=== PATIENT | female | born 1965 | race Caucasian/White ===

== ENCOUNTER 2016-12-01 08:31 | Inpatient (IN) | payer OTHER ==
[~2016-12-01] VITALS: Ht 157.5 cm; Wt 110.5 kg
[~2016-12-01 08:31] MED LIST: BACI500O61 TOP; CALC250 PO; CHOL50006 PO; DOCU100T9 PO; DOXY100 PO; FIORIC PO; FLUC200T63 PO; GABA300 PO; HEPA10KP SQ; LACTG PO; LANTUS2P SC; LORTA5 PO; NEPHRO PO; NOVOLOGP2 SQ; NOVOLOGSS SQ; NYSTT TOPICAL; OXYC1TAB PO; POLY119S PO; RANI150 PO; ROCE1INJ IV; ZINC220 PO
[2016-12-01 08:34] VITALS: BP 178/80; PULSE 96; RESP 16; TEMP 99; O2SAT 95
[2016-12-01 08:39] VITALS: BP 187/89; PULSE 93; RESP 16; TEMP 98.9; O2SAT 98
[2016-12-01] MEDS ORDERED: FURO40TA PO (09:00)
[2016-12-01] MEDS ORDERED: ATOR1TAB18 PO (09:00)
[2016-12-01] MEDS ORDERED: METO5TAB PO (09:00)
[2016-12-01] MEDS ORDERED: BRIL90TA PO (09:00)
[2016-12-01] MEDS ORDERED: CARV3.12 PO (09:00)
[2016-12-01] MEDS ORDERED: ASPI81TA11 PO (09:00)
[2016-12-01] MEDS ORDERED: LORA-373 PO (09:00)
[2016-12-01] MEDS ORDERED: ONDA1TAB16 PO (09:00)
[2016-12-01] MEDS ORDERED: INSU1INJ5 SQ (09:02)
[2016-12-01] MEDS ORDERED: NOVOINJ3 SQ (09:03)
[2016-12-01] MEDS ORDERED: SODIUM CHLOR 0.9% 1000 ML INJ 1,000 ML IV SCH (09:08)
[2016-12-01 09:13] VITALS: O2SAT 98
[2016-12-01] MEDS ORDERED: SODIUM CHLORIDE 0.9% FLUSH 10 ML FLUSH IV FLUSH PRN (09:15)
[2016-12-01 10:26] LABS: BLOOD, URINE SMALL (NEG); GLUCOSE,URINE NEG (NEG); KETONE, URINE NEG (NEG); NITRITE,URINE NEG (NEG); PH, URINE 5.5 (5.0-8.5); SQUAMOUS EPITHELIAL CELL URINE 2 /hpf (0-5); URINE COLOR LIGHT-YELLOW (YELLW/STRAW)
--- NOTE | 2016-12-01 10:27 | RADRPT ---
EXAM DATE/TIME: 12/01/2016 09:43 [place] COMPARISON: No previous studies available for comparison. INDICATIONS : Left lower quadrant pain for one day. ORAL CONTRAST: No oral contrast ingested. RADIATION DOSE: 16.94 CTDIvol (mGy) MEDICAL HISTORY : Diabetes mellitus type 2. Hepatitis A. SURGICAL HISTORY : Hysterectomy. ENCOUNTER: Initial ACUITY: 1 day PAIN SCALE: 7/10 LOCATION: Left lower quadrant TECHNIQUE: Volumetric scanning of the abdomen and pelvis was performed. Using automated exposure control and ad justment of the mA and/or kV according to patient size, radiation dose was kept as low as reasonably achievable to obtain optimal diagnostic quality images. DICOM format image data is available electro nically for review and comparison. FINDINGS: LOWER LUNGS: Minimal left basal atelectasis. LIVER: Homogeneous density without lesion. There is no dilation of the biliary tree. Gallbladder is surgica lly absent. SPLEEN: Normal size without lesion. PANCREAS: Within normal limits. KIDNEYS: There is a nearly striated left nephrogram with contrast noted in the left collecting system and uret er extending to near the UVJ. The left renal collecting system and ureter are mildly prominent in com parison to the right. A definite radiopaque ureteral calculus is not visualized although a small calc ulus would be obscured by the dense contrast in the ureters. There is mild perinephric stranding on t he left. Right kidney is grossly unremarkable without evidence for radiopaque renal calculi or hydron ephrosis. ADRENAL GLANDS: Within normal limits. VASCULAR: There is no aortic aneurysm. BOWEL/MESENTERY: The stomach, small bowel, and colon demonstrate no acute abnormality. There is no free intraperitone al air or fluid. ABDOMINAL WALL: Within normal limits. RETROPERITONEUM: There is no lymphadenopathy. BLADDER: Mild distended and contains contrast. No definite radiopaque bladder calculi. REPRODUCTIVE: Within normal limits. INGUINAL: There is no lymphadenopathy or hernia. MUSCULOSKELETAL: Within normal limits for patient age. CONCLUSION: 1. Striated left nephrogram from recent prior contrast administration with associated mild left hydro ureteronephrosis extending to the UVJ. A definite radiopaque ureteral calculus is not visualized alth ough a very small calculus can be obscured by the dense contrast in the left ureter. Findings are mos t consistent with at least a partial left UVJ obstruction although differential consideration include s left sided pyelonephritis. Clinical correlation is recommended. Pierce Avendano MD on December 01, 2016 at 10:00 Board Certified Radiologist. This report was verified electronically.
[2016-12-01 10:28] LABS: COMMENT (UR) CULT NOT INDICATED; CULTURE IF INDICATED CULT NOT INDICATED
[2016-12-01 10:42] LABS: AUTOMATED NEUTROPHIL # 10.5 TH/MM3 (1.8-7.7); BASOPHIL # 0.1 TH/MM3 (0-0.2); BASOPHIL % 0.7 % (0.0-2.0); EOSINOPHIL # 0.1 TH/MM3 (0-0.4); EOSINOPHIL % 0.4 % (0.0-4.0); HEMATOCRIT 39.9 % (35.0-46.0); HEMO FLAGS DIFF FINAL; LYMPH % 12.1 % (9.0-44.0); LYMPHOCYTE # 1.6 TH/MM3 (1.0-4.8); MEAN CELL VOLUME 87.1 FL (80.0-100.0); MEAN CORPUSCULAR HEMOGLOBIN 28.4 PG (27.0-34.0); MEAN CORPUSCULAR HGB CONC 32.6 % (32.0-36.0); NEUT % 81.8 % (16.0-70.0); PLATELET COUNT 276 TH/MM3 (150-450); RED BLOOD COUNT 4.58 MIL/MM3 (4.00-5.30); RED CELL DISTRIBUTION WIDTH 15.5 % (11.6-17.2); WHITE BLOOD COUNT 12.9 TH/MM3 (4.0-11.0)
[2016-12-01 11:07] LABS: ALKALINE PHOSPHATASE 142 U/L (45-117); TOTAL BILIRUBIN ADULT 0.4 MG/DL (0.2-1.0)
[2016-12-01 11:08] LABS: ALT (GPT) 33 U/L (10-53); ANION GAP 8 MEQ/L (5-15); AST (GOT) 29 U/L (15-37); BICARBONATE 25.3 MEQ/L (21.0-32.0); BLOOD UREA NITROGEN 27 MG/DL (7-18); CHLORIDE 105 MEQ/L (98-107); GLOMERULAR FILTRATION RATE 31 ML/MIN (>89); POTASSIUM 4.8 MEQ/L (3.5-5.1); SODIUM (NA) 138 MEQ/L (136-145)
--- NOTE | 2016-12-01 11:36 | PD ---
HPI Chief Complaint: Abdominal Pain Time Seen by Provider: 08:51 Travel History International Travel<30 days: No Contact w/Intl Traveler<30days: No Traveled to known affect area: No History of Present Illness HPI 51-year-old female came to the emergency room with history of left abdominal pain. Patient said it started spontaneously early yesterday morning. It has been severe since then. Patient went to [facility] where she had a CAT scan with contrast and was told that they could not find anything abnormal. Patient was discharged home but she is back here now because the pain continues. She has been having significant vomiting and dry heaving at this point. The pain starts from the left lumbar area and goes down to the left lower quadrant. Patient says she has never had this kind of pain before. She does not have any history of kidney stones. Vital signs were relatively stable. No history of fever or chills. No history of dysuria or hematuria. PFSH Past Medical History Narrative Medical List of her past medical, surgical, social and family history is reviewed from the nursing note. Arthritis: No Asthma: No Anxiety: Yes ( VERY SICK) Depression: No Heart Rhythm Problems: No Cancer: No Cardiovascular Problems: No High Cholesterol: No Chemotherapy: No Chest Pain: No Congestive Heart Failure: No COPD: No Cerebrovascular Accident: No Diabetes: Yes Patient Takes Glucophage: No Endocrine: Yes GERD: No Glaucoma: No Genitourinary: No Headaches: Yes Hepatitis: Yes (HEPATITIS A) Hiatal Hernia: No Hypertension: No Immune Disorder: No Kidney Stones: No Musculoskeletal: No Neurologic: Yes (LOWER EXTREMITY NEUROPATHY) Psychiatric: No Reproductive: Yes (HYST ) Respiratory: No Migraines: Yes Radiation Therapy: No Renal Failure: No Seizures: No Sickle Cell Disease: No Sleep Apnea: No Thyroid Disease: No Ulcer: No ?: Not : 1 Para: 1 Dilation and Curettage (D&C): Yes Past Surgical History Abdominal Surgery: No AICD: No Arteriovenous Shunt: No Cardiac Surgery: No Section: Yes Ear Surgery: No Endocrine Surgery: No Eye Surgery: No Genitourinary Surgery: No Gynecologic Surgery: Yes (TOTAL HYST) Hysterectomy: Yes (09/27/2009) Joint Replacement: No Oral Surgery: No Thoracic Surgery: No Other Surgery: Yes (LEFT FOOT AMPUTATION ) Social History Alcohol Use: No Tobacco Use: No Substance Use: No Allergies-Medications (Allergen,Severity, Reaction): Coded Allergies: cefaclor (Unverified Allergy, Severe, HIVES, 12/01/16) erythromycin base (Unverified Allergy, Severe, HIVES, 12/01/16) levofloxacin (Unverified Allergy, Severe, HIVES, 12/01/16) penicillin G (Unverified Allergy, Severe, HIVES, 12/01/16) amoxicillin (Verified Allergy, Unknown, 12/01/16) promethazine (Verified Allergy, Unknown, 12/01/16) Comments List of her allergies reviewed from the nursing note. Reported Meds & Prescriptions Reported Meds & Active Scripts Active Reported Novolog Flexpen Inj (Insulin Aspart) 300 Unit/3 Ml Pen 1 Units SQ Levemir Flextouch Pen Inj (Insulin Detemir) 300 unit/3 ML Pen 60 Units SQ HS Ondansetron (Ondansetron HCl) 4 Mg Tab 4 Mg PO Carvedilol 3.125 Mg Tab 3.125 Mg PO BID Furosemide 40 Mg Tab 40 Mg PO DAILY Atorvastatin (Atorvastatin Calcium) 80 Mg Tab 80 Mg PO HS Aspirin EC (Aspirin) 81 Mg Tabdr 81 Mg PO DAILY Metoclopramide (Metoclopramide HCl) 5 Mg Tab 5 Mg PO DAILY Lorazepam 0.5 Mg Tab 0.5 Mg PO DAILY PRN Brilinta (Ticagrelor) 90 Mg Tab 90 Mg PO BID Narrative Medication List of her home medications reviewed from the nursing note. Review of Systems Except as stated in HPI: all other systems reviewed are Neg Physical Exam Narrative GENERAL: Awake, alert, morbidly obese, moderate distress SKIN: Focused skin assessment warm/dry. HEAD: Atraumatic. Normocephalic. EYES: Pupils equal and round. No scleral icterus. No injection or drainage. ENT: No nasal bleeding or discharge. Mucous membranes pink and moist. NECK: Trachea midline. No JVD. CARDIOVASCULAR: Regular rate and rhythm. No murmur appreciated. RESPIRATORY: No accessory muscle use. Clear to auscultation. Breath sounds equal bilaterally. GASTROINTESTINAL: Abdomen soft, non-tender, nondistended. Hepatic and splenic margins not palpable. MUSCULOSKELETAL: No obvious deformities. No clubbing. No cyanosis. No edema. NEUROLOGICAL: Awake and alert. No obvious cranial nerve deficits. Motor grossly within normal limits. Normal speech. PSYCHIATRIC: Appropriate mood and affect; insight and judgment normal. Data Data Last Documented VS Vital Signs Date Time Temp Pulse Resp B/P (MAP) Pulse Ox O2 Delivery O2 Flow Rate FiO2 12/01/16 09:13 98 Room Air 12/01/16 08:39 98.9 93 16 Orders Orders Complete Blood Count With Diff (12/01/16 09:08) Comprehensive Metabolic Panel (12/01/16 09:08) Lipase (12/01/16 09:08) Urinalysis - C+S If Indicated (12/01/16 09:08) Ct Abd/Pel W/O Iv Contrast (12/01/16 09:08) Iv Access Insert/Monitor (12/01/16 09:08) Ecg Monitoring (12/01/16 09:08) Oximetry (12/01/16 09:08) Sodium Chlor 0.9% 1000 Ml Inj (Ns 1000 M (12/01/16 09:08) Sodium Chloride 0.9% Flush (Ns Flush) (12/01/16 09:15) Morphine Inj (Morphine Inj) (12/01/16 11:45) Sodium Chlor 0.9% 1000 Ml Inj (Ns 1000 M (12/01/16 11:45) Ondansetron Inj (Zofran Inj) (12/01/16 11:45) Admit Order (Ed Use Only) (12/01/16 11:52) Labs Laboratory Tests Test 12/01/16 10:10 12/01/16 10:30 Urine Color LIGHT-YELLOW Urine Turbidity CLEAR Urine pH 5.5 Urine Specific [place] 1.016 Urine Protein TRACE mg/dL Urine Glucose (UA) NEG mg/dL Urine Ketones NEG mg/dL Urine Occult Blood SMALL Urine Nitrite NEG Urine Bilirubin NEG Urine Urobilinogen LESS THAN 2.0 MG/DL Urine Leukocyte Esterase NEG Urine RBC 2 /hpf Urine WBC 5 /hpf Urine Squamous Epithelial Cells 2 /hpf Microscopic Urinalysis Comment CULT NOT INDICATED White Blood Count 12.9 TH/MM3 Red Blood Count 4.58 MIL/MM3 Hemoglobin 13.0 GM/DL Hematocrit 39.9 % Mean Corpuscular Volume 87.1 FL Mean Corpuscular Hemoglobin 28.4 PG Mean Corpuscular Hemoglobin Concent 32.6 % Red Cell Distribution Width 15.5 % Platelet Count 276 TH/MM3 Mean Platelet Volume 7.4 FL Neutrophils (%) (Auto) 81.8 % Lymphocytes (%) (Auto) 12.1 % Monocytes (%) (Auto) 5.0 % Eosinophils (%) (Auto) 0.4 % Basophils (%) (Auto) 0.7 % Neutrophils # (Auto) 10.5 TH/MM3 Lymphocytes # (Auto) 1.6 TH/MM3 Monocytes # (Auto) 0.6 TH/MM3 Eosinophils # (Auto) 0.1 TH/MM3 Basophils # (Auto) 0.1 TH/MM3 CBC Comment DIFF FINAL Differential Comment Blood Urea Nitrogen 27 MG/DL Creatinine 1.73 MG/DL Random Glucose 116 MG/DL Total Protein 7.4 GM/DL Albumin 3.0 GM/DL Calcium Level 9.1 MG/DL Alkaline Phosphatase 142 U/L Aspartate Amino Transf (AST/SGOT) 29 U/L Alanine Aminotransferase (ALT/SGPT) 33 U/L Total Bilirubin 0.4 MG/DL Sodium Level 138 MEQ/L Potassium Level 4.8 MEQ/L Chloride Level 105 MEQ/L Carbon Dioxide Level 25.3 MEQ/L Anion Gap 8 MEQ/L Estimat Glomerular Filtration Rate 31 ML/MIN Lipase 173 U/L [facility] Medical Decision Making Medical Screen Exam Complete: Yes Emergency Medical Condition: Yes Medical Record Reviewed: Yes Differential Diagnosis Ureteral colic, acute diverticulitis, muscular skeletal pain Narrative Course 11:39 AM patient has contrast still in the left collecting system of her urinary tract. Blood test is also suggestive of renal insufficiency/ dehydration and the white blood cell count is slightly elevated. Patient was given 1 L of IV fluid bolus and I ordered a second liter. She is getting morphine. Based on the obstructive pattern and her pain my diagnosis is ureteral colic secondary to ureteral calculi. I discussed the case with Dr. Briseno regarding the patient. He will consult. Patient will require admission. Awaiting for the hospitalist call back. Procedures EKG Prior to Arrival: No Physician Communication Physician Communication Dr. Briseno Diagnosis Primary Impression: Ureteral colic Additional Impressions: Ureteral obstruction Hydroureter Admitting Information Admitting Physician Requests: Admit Nilda Henry MD Dec 01, 2016 11:36
[2016-12-01] MEDS ORDERED: ONDANSETRON HCL 4 MG/2 ML VIAL IV PUSH ONE (11:45)
[2016-12-01] MEDS ORDERED: MORPHINE SULFATE 8 MG/ML INJ IV PUSH ONE (11:45)
[2016-12-01] MEDS ORDERED: SODIUM CHLOR 0.9% 1000 ML INJ 1,000 ML IV ONE (11:45)
[2016-12-01] MEDS ORDERED: DEXTROSE 50% IN WATER 50 ML VIAL(D50) IV PUSH PRN (12:30)
[2016-12-01] MEDS ORDERED: GLUCAGON 1 MG/ML VIAL OTHER PRN (12:30)
--- NOTE | 2016-12-01 12:34 | HHI.HP ---
[facility] No Primary Care Physician Admission Diagnosis ureteral colic, flank pain, intractable pain Diagnoses: (1) Ureteral obstruction Diagnosis: Principal Chief Complaint: left flank pain Travel History International Travel<30 Days: No Contact w/Intl Traveler <30 Da: No Traveled to Known Affected Are: No History of Present Illness patient is a 51 y/o female with history of CAD, hypertension, diabetes, who presented to ER with left flank pain. she says that the pain started yesterday. pain was severe in intensity with no radiation. pain was associated with nausea but with no fever, dysuria or gross hematuria. she says that she went to [facility], had a CT of the abdomen with contrast and was discharged home with Keflex for possible UTI. she says that her pain got worse to the extent that she decided to come back to ER. Review of Systems Constitutional: DENIES: Fever, Weight loss, Chills, Night Sweats Eyes: DENIES: Blurred vision, Diplopia, Vision loss, Double Vision Ears, nose, mouth, throat: DENIES: Tinnitus, Vertigo, Throat pain, Epistaxis Respiratory: DENIES: Apneas, Cough, Snoring, Wheezing, Hemoptysis, Sputum production, Shortness of breath Cardiovascular: DENIES: Chest pain, Palpitations, Syncope, Dyspnea on Exertion , PND, Lower Extremity Edema, Orthopnea, Claudication Gastrointestinal: COMPLAINS OF: Abdominal pain, Nausea, DENIES: Black stools, Bloody stools, Constipation, Diarrhea, Vomiting, Difficulty Swallowing, Anorexia Genitourinary: DENIES: Urinary frequency, Urgency, Hematuria, Dysuria Musculoskeletal: DENIES: Joint pain, Muscle aches, Stiffness, Joint Swelling Integumentary: DENIES: Rash Neurologic: DENIES: Abnormal gait, Headache, Localized weakness, Paresthesias, Seizures, Speech Problems, Tremor, Poor Balance Psychiatric: DENIES: Anxiety, Confusion, Mood changes, Depression, Hallucinations, Agitation, Suicidal Ideation, Homicidal Ideation, Delusions Past Family Social History Past Medical History CAD hypertension diabetes mellitus Past Surgical History cardiac stent placement appendectomy cholecystectomy hysterectomy left BKA Reported Medications Novolog Flexpen Inj (Insulin Aspart) 300 Unit/3 Ml Pen 1 Units SQ Levemir Flextouch Pen Inj (Insulin Detemir) 300 unit/3 ML Pen 60 Units SQ HS Ondansetron (Ondansetron HCl) 4 Mg Tab 4 Mg PO Carvedilol 3.125 Mg Tab 3.125 Mg PO BID Furosemide 40 Mg Tab 40 Mg PO DAILY Atorvastatin (Atorvastatin Calcium) 80 Mg Tab 80 Mg PO HS Aspirin EC (Aspirin) 81 Mg Tabdr 81 Mg PO DAILY Metoclopramide (Metoclopramide HCl) 5 Mg Tab 5 Mg PO DAILY Lorazepam 0.5 Mg Tab 0.5 Mg PO DAILY PRN Brilinta (Ticagrelor) 90 Mg Tab 90 Mg PO BID Allergies: Coded Allergies: cefaclor (Unverified Allergy, Severe, HIVES, 12/01/16) erythromycin base (Unverified Allergy, Severe, HIVES, 12/01/16) levofloxacin (Unverified Allergy, Severe, HIVES, 12/01/16) penicillin G (Unverified Allergy, Severe, HIVES, 12/01/16) amoxicillin (Verified Allergy, Unknown, 12/01/16) promethazine (Verified Allergy, Unknown, 12/01/16) Active Ordered Medications Current Medications Sodium Chloride 1,000 ml @ 1,000 mls/hr Q1H IV Last administered on 12/01/16 09:18; Start 12/01/16 at 09:08; Stop 12/01/16 at 10:07; Status DC Sodium Chloride (NS Flush) 2 ml UNSCH PRN IV FLUSH FLUSH AFTER USING IV ACCESS ; Start 12/01/16 at 09:15 Morphine Sulfate (Morphine Inj) 6 mg ONCE ONCE IV PUSH Last administered on 11:49; Start 12/01/16 at 11:45; Stop 12/01/16 at 11:46; Status DC Sodium Chloride 1,000 ml @ 999 mls/hr BOLUS ONCE IV Last administered on 12/01 11:49; Start 12/01/16 at 11:45; Stop 12/01/16 at 12:45 Ondansetron HCl (Zofran Inj) 4 mg ONCE ONCE IV PUSH Last administered on 11:50; Start 12/01/16 at 11:45; Stop 12/01/16 at 11:46; Status DC Family History not relevant to this presentation. Social History no smoking or drinking. Physical Exam Vital Signs Vital Signs Date Time Temp Pulse Resp B/P (MAP) Pulse Ox O2 Delivery O2 Flow Rate FiO2 12/01/16 09:13 98 Room Air 12/01/16 08:39 98.9 93 16 187/89 (121) 98 Room Air 12/01/16 08:34 99.0 96 16 178/80 (112) 95 Physical Exam GENERAL: This is a well-nourished, well-developed patient, in no apparent distress. SKIN: No rashes, ecchymoses or lesions. Cool and dry. HEAD: Atraumatic. Normocephalic. No temporal or scalp tenderness. EYES: Pupils equal round and reactive. Extraocular motions intact. No scleral icterus. No injection or drainage. ENT: Nose without bleeding, purulent drainage or septal hematoma. Throat without erythema, tonsillar hypertrophy or exudate. Uvula midline. Airway patent. NECK: Trachea midline. No JVD or lymphadenopathy. Supple, nontender, no meningeal signs. CARDIOVASCULAR: Regular rate and rhythm without murmurs, gallops, or rubs. RESPIRATORY: Clear to auscultation. Breath sounds equal bilaterally. No wheezes , rales, or rhonchi. GASTROINTESTINAL: Abdomen soft, left flank tenderness, nondistended. No hepato- splenomegaly, or palpable masses. No guarding. MUSCULOSKELETAL:s/p left BKA NEUROLOGICAL: Awake and alert. Cranial nerves II through XII intact. Motor and sensory grossly within normal limits. Five out of 5 muscle strength in all muscle groups. Normal speech. Laboratory Laboratory Tests Test 12/01/16 10:10 12/01/16 10:30 Urine Color LIGHT-YELLOW Urine Turbidity CLEAR Urine pH 5.5 Urine Specific [place] 1.016 Urine Protein TRACE Urine Glucose (UA) NEG Urine Ketones NEG Urine Occult Blood SMALL Urine Nitrite NEG Urine Bilirubin NEG Urine Urobilinogen LESS THAN 2.0 Urine Leukocyte Esterase NEG Urine RBC 2 Urine WBC 5 Urine Squamous Epithelial Cells 2 Microscopic Urinalysis Comment CULT NOT INDICATED White Blood Count 12.9 Red Blood Count 4.58 Hemoglobin 13.0 Hematocrit 39.9 Mean Corpuscular Volume 87.1 Mean Corpuscular Hemoglobin 28.4 Mean Corpuscular Hemoglobin Concent 32.6 Red Cell Distribution Width 15.5 Platelet Count 276 Mean Platelet Volume 7.4 Neutrophils (%) (Auto) 81.8 Lymphocytes (%) (Auto) 12.1 Monocytes (%) (Auto) 5.0 Eosinophils (%) (Auto) 0.4 Basophils (%) (Auto) 0.7 Neutrophils # (Auto) 10.5 Lymphocytes # (Auto) 1.6 Monocytes # (Auto) 0.6 Eosinophils # (Auto) 0.1 Basophils # (Auto) 0.1 CBC Comment DIFF FINAL Differential Comment Blood Urea Nitrogen 27 Creatinine 1.73 Random Glucose 116 Total Protein 7.4 Albumin 3.0 Calcium Level 9.1 Alkaline Phosphatase 142 Aspartate Amino Transf (AST/SGOT) 29 Alanine Aminotransferase (ALT/SGPT) 33 Total Bilirubin 0.4 Sodium Level 138 Potassium Level 4.8 Chloride Level 105 Carbon Dioxide Level 25.3 Anion Gap 8 Estimat Glomerular Filtration Rate 31 Lipase 173 Result Diagram: 12/01/16 1030 12/01/16 1030 Imaging Last Impressions Abdomen/Pelvis CT 12/01/16 0908 Signed Impressions: Service Date/Time: Thursday, December 01, 2016 09:43 - CONCLUSION: 1. Striated left nephrogram from recent prior contrast administration with associated mild left hydroureteronephrosis extending to the UVJ. A definite radiopaque ureteral calculus is not visualized although a very small calculus can be obscured by the dense contrast in the left ureter. Findings are most consistent with at least a partial left UVJ obstruction although differential consideration includes left sided pyelonephritis. Clinical correlation is recommended. MD Tiesha Delgado VTE Risk Assessment Caprini VTE Risk Assessment: Mod/High Risk (score >= 2) VTE Pharm Contraindication: awaiting urology evaluation. Caprini Risk Assessment Model Point Value = 1 Point Value = 2 Point Value = 3 Point Value = 5 Age 41-60 Minor surgery BMI > 25 kg/m2 Swollen legs Varicose veins or History of unexplained or recurrent spontaneous Oral contraceptives or hormone replacement Sepsis (< 1 month) Serious lung disease, including pneumonia (< 1 month) Abnormal pulmonary function Acute myocardial infarction Congestive heart failure (< 1 month) History of inflammatory bowel disease Medical patient at bed rest Age 61-74 Arthroscopic surgery Major open surgery (> 45 min) Laparoscopic surgery (> 45 min) Malignancy Confined to bed (> 72 hours) Immobilizing plaster cast Central venous access Age >= 75 History of VTE Family history of VTE Factor V Leiden Prothrombin [id number] Lupus anticoagulant Anticardiolipin antibodies Elevated serum homocysteine Heparin-induced thrombocytopenia Other congenital or acquired thrombophilia Stroke (< 1 month) Elective arthroplasty Hip, pelvis, or leg fracture Acute spinal cord injury (< 1 month) Prophylaxis Regimen Total Risk Factor Score Risk Level Prophylaxis Regimen 0-1 Low Early ambulation 2 Moderate Order ONE of the following: *Sequential Compression Device (SCD) *Heparin 5000 units SQ BID 3-4 Higher Order ONE of the following medications: *Heparin 5000 units SQ TID *Enoxaparin/Lovenox 40 mg SQ daily (WT < 150 kg, CrCl > 30 mL/min) *Enoxaparin/Lovenox 30 mg SQ daily (WT < 150 kg, CrCl > 10-29 mL/min) *Enoxaparin/Lovenox 30 mg SQ BID (WT < 150 kg, CrCl > 30 mL/min) AND/OR *Sequential Compression Device (SCD) 5 or more Highest Order ONE of the following medications: *Heparin 5000 units SQ TID (Preferred with Epidurals) *Enoxaparin/Lovenox 40 mg SQ daily (WT < 150 kg, CrCl > 30 mL/min) *Enoxaparin/Lovenox 30 mg SQ daily (WT < 150 kg, CrCl > 10-29 mL/min) *Enoxaparin/Lovenox 30 mg SQ BID (WT < 150 kg, CrCl > 30 mL/min) AND *Sequential Compression Device (SCD) Assessment and Plan Assessment and Plan A/P - left hydronephrosis keep NPO and start IV fluid- pain control- consult Urology -acute kidney injury- likely post-renal- continue IV fluid- BMP in am. -CAD- s/p stent placement- hold antiplatelets for now- resume BB -diabetes mellitus;hold long acting insulin- accu-check with SSI -DVT prophylaxis with SCD's Discussed Condition With ER physician and the patient. Physician Certification 2 Midnight Certification Type: Admission for Inpatient Services Order for Inpatient Services The services are ordered in accordance with Medicare regulations or non- Medicare payer requirements, as applicable. In the case of services not specified as inpatient-only, they are appropriately provided as inpatient services in accordance with the 2-midnight benchmark. Estimated LOS (days): 2 days is the estimated time the patient will need to remain in the hospital, assuming treatment plan goals are met and no additional complications. Post-Hospital Plan: Home Physician Certification 2 Midnight Certification Type: Admission for Inpatient Services Order for Inpatient Services The services are ordered in accordance with Medicare regulations or non- Medicare payer requirements, as applicable. In the case of services not specified as inpatient-only, they are appropriately provided as inpatient services in accordance with the 2-midnight benchmark. Estimated LOS (days): 2 days is the estimated time the patient will need to remain in the hospital, assuming treatment plan goals are met and no additional complications. Post-Hospital Plan: Home Aviva Russ MD Dec 01, 2016 12:34
[2016-12-01 13:22] VITALS: BP 120/70; PULSE 92; RESP 15; O2SAT 99
[2016-12-01] MEDS: SODIUM CHLOR 0.9% 1000 ML INJ 1,000 ML IV SCH ×2 (13:24→23:15)
[2016-12-01] MEDS: ONDANSETRON HCL 4 MG/2 ML VIAL IV PUSH PRN (15:45)
[2016-12-01] MEDS: HYDROmorphone HCL PF 1 MG/ML VIAL IV PUSH PRN ×2 (15:45→19:04)
[2016-12-01 16:00] VITALS: BP 149/70; PULSE 87; RESP 20; TEMP 98.7; O2SAT 96
[2016-12-01] MEDS: INSULIN ASPART SUPPLEMENTAL SCALE SQ SCH ×2 (17:00→21:00)
[2016-12-01 20:00] VITALS: BP 127/63; PULSE 91; RESP 22; TEMP 98.7; O2SAT 94
--- NOTE | 2016-12-01 20:12 | PD.CONS ---
HPI Service Urology Consult Requested By Reason for Consult Left Hydronephrosis Primary Care Physician No Primary Care Physician Diagnosis: (1) Ureteral obstruction ICD Code: N13.5 - Crossing vessel and stricture of ureter without hydronephrosis History of Present Illness 51yo female with history of CAD, HTN, DM now seen in consultation for left flank pain. Patient reports she had left flank pain that was quite severe yesterday morning. She initially presented to [facility] where CT scan with contrast did not identify any evidence of obstruction. Her pain persisted however and she now presented to [place] ED. A repeat CT scan was done which showed contrast noted within the left collecting system, however no evidence of ureteral stone or obvious obstruction. She currently reports her pain is controlled, denies fevers. No hematuria Review of Systems ROS Limitations: Clinical Condition Constitutional: DENIES: Fever Eyes: DENIES: Blurred vision Ears, nose, mouth, throat: DENIES: Hearing loss Respiratory: DENIES: Apneas, Cough Cardiovascular: DENIES: Chest pain Gastrointestinal: COMPLAINS OF: Nausea, DENIES: Abdominal pain Genitourinary: DENIES: Hematuria Musculoskeletal: COMPLAINS OF: Back pain Hematologic/lymphatic: DENIES: Bruising Neurologic: DENIES: Headache Psychiatric: DENIES: Anxiety Except as stated in HPI: all other systems reviewed are Neg Past Family Social History Past Medical History CAD hypertension diabetes mellitus Past Surgical History cardiac stent placement appendectomy cholecystectomy hysterectomy left BKA Reported Medications Reported Meds & Active Scripts Active Reported Novolog Flexpen Inj (Insulin Aspart) 300 Unit/3 Ml Pen 1 Units SQ Levemir Flextouch Pen Inj (Insulin Detemir) 300 unit/3 ML Pen 60 Units SQ HS Ondansetron (Ondansetron HCl) 4 Mg Tab 4 Mg PO Carvedilol 3.125 Mg Tab 3.125 Mg PO BID Furosemide 40 Mg Tab 40 Mg PO DAILY Atorvastatin (Atorvastatin Calcium) 80 Mg Tab 80 Mg PO HS Aspirin EC (Aspirin) 81 Mg Tabdr 81 Mg PO DAILY Metoclopramide (Metoclopramide HCl) 5 Mg Tab 5 Mg PO DAILY Lorazepam 0.5 Mg Tab 0.5 Mg PO DAILY PRN Brilinta (Ticagrelor) 90 Mg Tab 90 Mg PO BID Allergies: Coded Allergies: cefaclor (Unverified Allergy, Severe, HIVES, 12/01/16) erythromycin base (Unverified Allergy, Severe, HIVES, 12/01/16) levofloxacin (Unverified Allergy, Severe, HIVES, 12/01/16) penicillin G (Unverified Allergy, Severe, HIVES, 12/01/16) amoxicillin (Verified Allergy, Unknown, 12/01/16) promethazine (Verified Allergy, Unknown, 12/01/16) Active Ordered Medications Current Medications Medications (Trade) Dose Ordered Sig/Kadeem Route Start Time Stop Time Status Last Admin (NS Flush) 2 ml UNSCH PRN IV FLUSH 12/01/16 09:15 (Zofran Inj) 4 mg Q8H PRN IV PUSH 12/01/16 12:30 12/01/16 15:45 (Dilaudid Pf Inj) 1 mg Q4H PRN IV PUSH 12/01/16 12:30 12/01/16 19:04 (D50w (Vial) Inj) 50 ml UNSCH PRN IV PUSH 12/01/16 12:30 (Glucagon Inj) 1 mg UNSCH PRN OTHER 12/01/16 12:30 (NovoLOG SUPPLEMENTAL SCALE) 1 ACHS SLIDING SCALE SQ 12/01/16 17:00 Sodium Chloride 1,000 ml @ 100 mls/hr Q10H IV 12/01/16 13:00 12/01/16 13:24 (Lipitor) 80 mg HS PO 12/01/16 21:00 (Coreg) 3.125 mg BID PO 12/01/16 21:00 (Ativan) 0.5 mg DAILY PRN PO 12/01/16 12:30 Family History Family history reviewed and noncontributory to present illness Social History no smoking or drinking. Physical Exam Vital Signs Date Time Temp Pulse Resp B/P (MAP) Pulse Ox O2 Delivery O2 Flow Rate FiO2 12/01/16 16:00 98.7 87 20 149/70 (96) 96 12/01/16 15:36 12/01/16 13:22 92 15 120/70 (87) 99 Room Air 12/01/16 09:13 98 Room Air 12/01/16 08:39 98.9 93 16 187/89 (121) 98 Room Air 12/01/16 08:34 99.0 96 16 178/80 (112) 95 Physical Exam GENERAL: This is a well-nourished, well-developed patient, in no apparent distress. SKIN: No rashes, ecchymoses or lesions. Cool and dry. HEAD: Atraumatic. Normocephalic.. EYES: Extraocular motions intact. No scleral icterus. No injection or drainage. ENT: Nose without bleeding, purulent drainage. Airway patent. NECK: Trachea midline. CARDIOVASCULAR: Extremities well perfused, normal pulse. RESPIRATORY: Nonlabored, equal chest rise GASTROINTESTINAL: Abdomen soft, non-tender, nondistended. MUSCULOSKELETAL: Extremities without clubbing, cyanosis, or edema. NEUROLOGICAL: Awake and alert. Left BKA. Normal speech. Lab results reviewed: Yes Laboratory Tests Test 12/01/16 10:10 12/01/16 10:30 Urine Color LIGHT-YELLOW Urine Turbidity CLEAR Urine pH 5.5 Urine Specific [place] 1.016 Urine Protein TRACE Urine Glucose (UA) NEG Urine Ketones NEG Urine Occult Blood SMALL Urine Nitrite NEG Urine Bilirubin NEG Urine Urobilinogen LESS THAN 2.0 Urine Leukocyte Esterase NEG Urine RBC 2 Urine WBC 5 Urine Squamous Epithelial Cells 2 Microscopic Urinalysis Comment CULT NOT INDICATED White Blood Count 12.9 Red Blood Count 4.58 Hemoglobin 13.0 Hematocrit 39.9 Mean Corpuscular Volume 87.1 Mean Corpuscular Hemoglobin 28.4 Mean Corpuscular Hemoglobin Concent 32.6 Red Cell Distribution Width 15.5 Platelet Count 276 Mean Platelet Volume 7.4 Neutrophils (%) (Auto) 81.8 Lymphocytes (%) (Auto) 12.1 Monocytes (%) (Auto) 5.0 Eosinophils (%) (Auto) 0.4 Basophils (%) (Auto) 0.7 Neutrophils # (Auto) 10.5 Lymphocytes # (Auto) 1.6 Monocytes # (Auto) 0.6 Eosinophils # (Auto) 0.1 Basophils # (Auto) 0.1 CBC Comment DIFF FINAL Differential Comment Blood Urea Nitrogen 27 Creatinine 1.73 Random Glucose 116 Total Protein 7.4 Albumin 3.0 Calcium Level 9.1 Alkaline Phosphatase 142 Aspartate Amino Transf (AST/SGOT) 29 Alanine Aminotransferase (ALT/SGPT) 33 Total Bilirubin 0.4 Sodium Level 138 Potassium Level 4.8 Chloride Level 105 Carbon Dioxide Level 25.3 Anion Gap 8 Estimat Glomerular Filtration Rate 31 Lipase 173 Result Diagram: 12/01/16 1030 12/01/16 1030 Personally reviewed images: Yes Imaging Last Impressions Abdomen/Pelvis CT 12/01/16 0908 Signed Impressions: Service Date/Time: Thursday, December 01, 2016 09:43 - CONCLUSION: 1. Striated left nephrogram from recent prior contrast administration with associated mild left hydroureteronephrosis extending to the UVJ. A definite radiopaque ureteral calculus is not visualized although a very small calculus can be obscured by the dense contrast in the left ureter. Findings are most consistent with at least a partial left UVJ obstruction although differential consideration includes left sided pyelonephritis. Clinical correlation is recommended. Pierce Avendano MD Assessment and Plan Problem List: (1) Diabetes mellitus ICD Code: E11.9 - Diabetes mellitus Status: Chronic (2) Ureteral colic ICD Code: N23 - Unspecified renal colic Status: Acute (3) Ureteral obstruction ICD Code: N13.5 - Crossing vessel and stricture of ureter without hydronephrosis Status: Acute Assessment and Plan -CT images reviewed. Retained contrast of the left colecting system, to the Left UVJ noted. However no obvious stone or obstruction identified -Patient without history of kidney stones -Currently patient is comfortable, no fevers -At this time, no acute intervention indicated as there is no obvious cause for the CT scan findings, and patient is currently comfortable without any signs of sepsis -If patient has a left ureteral stone at the UVJ, it is likely very small given the CT scan appearance and may have a good chance to pass spontaneously. Other causes may be a left UVJ stricture. -If her symptoms do not improve, would recommend left nephrostomy tube placement. Ureteral stent would not be recommended as it is unclear if there is a UVJ stricture that may prevent placement of a left ureteral stent. Nephrostomy tube would be the most definitive method to drain the left collecting system. -Patient may resume diet for now. -Will follow Bobo Briseno MD Dec 01, 2016 20:12
[2016-12-01] MEDS: CARVEDILOL 3.125 MG TAB PO SCH (21:01)
[2016-12-01] MEDS: ATORVASTATIN 80 MG TAB PO SCH (21:01)
[2016-12-02] VITALS: BP 133/68; PULSE 96; RESP 20; TEMP 99.1; O2SAT 95
[2016-12-02 04:00] VITALS: BP 111/56; PULSE 92; RESP 19; TEMP 99.3; O2SAT 95
[2016-12-02 07:50] LABS: BICARBONATE 23.7 MEQ/L (21.0-32.0); POTASSIUM 4.4 MEQ/L (3.5-5.1)
[2016-12-02 08:00] VITALS: BP 110/56; PULSE 86; RESP 20; TEMP 98; O2SAT 92
[2016-12-02] MEDS: INSULIN ASPART SUPPLEMENTAL SCALE SQ SCH ×4 (08:00→21:41)
[2016-12-02] MEDS: CARVEDILOL 3.125 MG TAB PO SCH ×2 (08:18→21:41)
[2016-12-02] MEDS: SODIUM CHLOR 0.9% 1000 ML INJ 1,000 ML IV SCH ×2 (08:18→18:16)
--- NOTE | 2016-12-02 10:20 | HHI.PR ---
Subjective Remarks is more comfortable. abdominal pain is better. no fever. no new complaints. Objective Vitals Vital Signs Date Time Temp Pulse Resp B/P (MAP) Pulse Ox O2 Delivery O2 Flow Rate FiO2 12/02/16 07:00 Room Air 12/02/16 04:00 Room Air 12/02/16 04:00 99.3 92 19 111/56 (74) 95 12/02/16 00:00 Room Air 12/02/16 00:00 99.1 96 20 133/68 (89) 95 12/01/16 20:00 98.7 91 22 127/63 (84) 94 12/01/16 16:00 98.7 87 20 149/70 (96) 96 12/01/16 15:36 12/01/16 13:22 92 15 120/70 (87) 99 Room Air I/O 12/01/16 12/01/16 12/01/16 12/02/16 12/02/16 12/02/16 06:59 14:59 22:59 06:59 14:59 22:59 Intake Total 2000 ml 800 ml 736 ml Output Total 700 ml Balance 2000 ml 800 ml 36 ml Intake Oral 480 ml IV Total 2000 ml 800 ml 256 ml Output Urine Total 700 ml # Bowel Movements 0 Result Diagram: 12/01/16 1030 12/02/16 0527 Imaging Last Impressions Abdomen/Pelvis CT 12/01/16 0908 Signed Impressions: Service Date/Time: Thursday, December 01, 2016 09:43 - CONCLUSION: 1. Striated left nephrogram from recent prior contrast administration with associated mild left hydroureteronephrosis extending to the UVJ. A definite radiopaque ureteral calculus is not visualized although a very small calculus can be obscured by the dense contrast in the left ureter. Findings are most consistent with at least a partial left UVJ obstruction although differential consideration includes left sided pyelonephritis. Clinical correlation is recommended. Pierce Avendano MD Objective Remarks GENERAL: This is a well-nourished, well-developed patient, in no apparent distress. CARDIOVASCULAR: Regular rate and regular rhythm without murmurs, gallops, or rubs. RESPIRATORY: Clear to auscultation. Breath sounds equal bilaterally. No wheezes , rales, or rhonchi. GASTROINTESTINAL: Abdomen soft, non-tender, nondistended. Normal, active bowel sounds MUSCULOSKELETAL: Extremities without clubbing, cyanosis, or edema. NEURO: Alert & Oriented x4 to person, place, time, situation. Moves all ext x4 Medications and IVs Current Medications Sodium Chloride 1,000 ml @ 1,000 mls/hr Q1H IV Last administered on 12/01/16 09:18; Start 12/01/16 at 09:08; Stop 12/01/16 at 10:07; Status DC Sodium Chloride (NS Flush) 2 ml UNSCH PRN IV FLUSH FLUSH AFTER USING IV ACCESS ; Start 12/01/16 at 09:15 Morphine Sulfate (Morphine Inj) 6 mg ONCE ONCE IV PUSH Last administered on 11:49; Start 12/01/16 at 11:45; Stop 12/01/16 at 11:46; Status DC Sodium Chloride 1,000 ml @ 999 mls/hr BOLUS ONCE IV Last administered on 12/01 11:49; Start 12/01/16 at 11:45; Stop 12/01/16 at 12:45; Status DC Ondansetron HCl (Zofran Inj) 4 mg ONCE ONCE IV PUSH Last administered on 11:50; Start 12/01/16 at 11:45; Stop 12/01/16 at 11:46; Status DC Ondansetron HCl (Zofran Inj) 4 mg Q8H PRN IV PUSH NAUSEA Last administered on 12/01/16 15:45; Start 12/01/16 at 12:30 Hydromorphone HCl (Dilaudid Pf Inj) 1 mg Q4H PRN IV PUSH PAIN > 3 Last administered on 12/01/16 19:04; Start 12/01/16 at 12:30 Dextrose (D50w (Vial) Inj) 50 ml UNSCH PRN IV PUSH HYPOGLYCEMIA-SEE COMMENTS; Start 12/01/16 at 12:30 Glucagon (Glucagon Inj) 1 mg UNSCH PRN OTHER HYPOGLYCEMIA-SEE COMMENTS; Start 12/01/16 at 12:30 Insulin Aspart (NovoLOG SUPPLEMENTAL SCALE) 1 ACHS SLIDING SCALE SQ ; Start at 17:00 Sodium Chloride 1,000 ml @ 100 mls/hr Q10H IV Last administered on 12/02/16 08:18; Start 12/01/16 at 13:00 Atorvastatin Calcium (Lipitor) 80 mg HS PO Last administered on 12/01/16 21:01 ; Start 12/01/16 at 21:00 Carvedilol (Coreg) 3.125 mg BID PO Last administered on 12/02/16 08:18; Start 12/01/16 at 21:00 Lorazepam (Ativan) 0.5 mg DAILY PRN PO ANXIETY; Start 12/01/16 at 12:30 A/P Problem List: (1) Ureteral obstruction ICD Code: N13.5 - Crossing vessel and stricture of ureter without hydronephrosis Status: Acute Assessment and Plan A/P - left hydronephrosis urology consult appreciated- no surgical intervention at this time. continue with pain control- -acute kidney injury- likely post-renal- improving- continue IV fluid- BMP in am. -CAD- s/p stent placement- resume antiplatelets soon- resume BB -diabetes mellitus;hold long acting insulin- accu-check with SSI -DVT prophylaxis with SCD's Discharge Planning possible dc home tomorrow if stable. Aviva Russ MD Dec 02, 2016 10:20
[2016-12-02 12:00] VITALS: BP 118/56; PULSE 85; RESP 20; TEMP 98.2; O2SAT 92
[2016-12-02] MEDS ORDERED: HYDROmorphone HCL PF 1 MG/ML VIAL IV PUSH PRN (12:30)
[2016-12-02 16:00] VITALS: BP 110/56; PULSE 85; RESP 18; TEMP 99.1; O2SAT 90
[2016-12-02] MEDS: ONDANSETRON HCL 4 MG/2 ML VIAL IV PUSH PRN (17:47)
[2016-12-02] MEDS: ACETAMINOPHEN/HYDROcodone 325 MG/5 MG TAB PO PRN (18:16)
[2016-12-02 20:00] VITALS: BP 130/85; PULSE 84; RESP 20; TEMP 97.9; O2SAT 95
--- NOTE | 2016-12-02 20:22 | HHI.PR ---
Subjective Patient symptoms today Pain improved, however persistent N/V. Objective Vital Signs Vital Signs Date Time Temp Pulse Resp B/P (MAP) Pulse Ox O2 Delivery O2 Flow Rate FiO2 12/02/16 16:00 99.1 85 18 110/56 (74) 90 12/02/16 12:00 98.2 85 20 118/56 (76) 92 12/02/16 08:00 98.0 86 20 110/56 (74) 92 12/02/16 07:00 Room Air 12/02/16 04:00 Room Air 12/02/16 04:00 99.3 92 19 111/56 (74) 95 12/02/16 00:00 Room Air 12/02/16 00:00 99.1 96 20 133/68 (89) 95 Result Diagram: 12/01/16 1030 12/02/16 05 Objective Remarks NAD, AAOx3 Resp NL Ab Soft Medications and IVs Current Medications Medications (Trade) Dose Ordered Sig/Kadeem Route Start Time Stop Time Status Last Admin (NS Flush) 2 ml UNSCH PRN IV FLUSH 12/01/16 09:15 (Zofran Inj) 4 mg Q8H PRN IV PUSH 12/01/16 12:30 12/02/16 17:47 (D50w (Vial) Inj) 50 ml UNSCH PRN IV PUSH 12/01/16 12:30 (Glucagon Inj) 1 mg UNSCH PRN OTHER 12/01/16 12:30 (NovoLOG SUPPLEMENTAL SCALE) 1 ACHS SLIDING SCALE SQ 12/01/16 17:00 Sodium Chloride 1,000 ml @ 100 mls/hr Q10H IV 12/01/16 13:00 12/02/16 18:16 (Lipitor) 80 mg HS PO 12/01/16 21:00 12/01/16 21:01 (Coreg) 3.125 mg BID PO 12/01/16 21:00 12/02/16 08:18 (Ativan) 0.5 mg DAILY PRN PO 12/01/16 12:30 (Dilaudid Pf Inj) 0.5 mg Q4H PRN IV PUSH 12/02/16 12:30 ([place] 5-325 Mg) 1 tab Q4H PRN PO 12/02/16 10:30 12/02/16 18:16 Assessment and Plan Problem List: (1) Diabetes mellitus ICD Code: E11.9 - Diabetes mellitus Status: Chronic (2) Ureteral colic ICD Code: N23 - Unspecified renal colic Status: Acute (3) Ureteral obstruction ICD Code: N13.5 - Crossing vessel and stricture of ureter without hydronephrosis Status: Acute Assessment and Plan -As she has had some improvement with improved Cr as well, no immediate intervention -However her pain is better but persistent N/V. -Therefore will further evaluate with Renal scan to clarify any evidence of obstruction -If there is evidence of obstruction, would recommend left nephrostomy tube placement with IR -Will follow Bobo Briseno MD Dec 02, 2016 20:22
[2016-12-02] MEDS: ATORVASTATIN 80 MG TAB PO SCH (21:41)
[2016-12-03] VITALS: BP 98/56; PULSE 78; RESP 20; TEMP 98.1; O2SAT 92
[2016-12-03 04:00] VITALS: BP_SYST 105; PULSE 78; RESP 20; TEMP 98; O2SAT 92
[2016-12-03] MEDS: SODIUM CHLOR 0.9% 1000 ML INJ 1,000 ML IV SCH ×2 (04:27→14:18)
[2016-12-03 08:00] VITALS: BP 107/76; PULSE 78; RESP 18; TEMP 98.1; O2SAT 92
[2016-12-03] MEDS: INSULIN ASPART SUPPLEMENTAL SCALE SQ SCH ×4 (08:00→21:55)
[2016-12-03] MEDS: CARVEDILOL 3.125 MG TAB PO SCH ×2 (08:08→21:55)
[2016-12-03] MEDS: ACETAMINOPHEN/HYDROcodone 325 MG/5 MG TAB PO PRN ×2 (08:09→14:16)
[2016-12-03] MEDS: ONDANSETRON HCL 4 MG/2 ML VIAL IV PUSH PRN ×2 (08:10→19:31)
--- NOTE | 2016-12-03 08:17 | HHI.PR ---
Subjective Remarks in no acute distress. however is uncomfortable with left flank pain and nausea. had some emesis last night. no fever. Objective Vitals Vital Signs Date Time Temp Pulse Resp B/P (MAP) Pulse Ox O2 Delivery O2 Flow Rate FiO2 12/03/16 08:00 98.1 78 18 107/76 (86) 92 12/03/16 04:00 98.0 78 20 105/ 92 12/03/16 00:00 98.1 78 20 98/56 (70) 92 12/02/16 21:44 Room Air 12/02/16 20:00 97.9 84 20 130/85 (100) 95 12/02/16 16:00 99.1 85 18 110/56 (74) 90 12/02/16 12:00 98.2 85 20 118/56 (76) 92 I/O 12/02/16 12/02/16 12/02/16 12/03/16 12/03/16 12/03/16 07:00 15:00 23:00 07:00 15:00 23:00 Intake Total 736 ml 2000 ml 1660 ml Output Total 700 ml Balance 36 ml 2000 ml 1660 ml Intake Oral 480 ml 720 ml 480 ml IV Total 256 ml 1280 ml 1180 ml Output Urine Total 700 ml # Voids 3 3 # Bowel Movements 0 0 Result Diagram: 12/01/16 1030 12/02/16 0527 Imaging Last Impressions Abdomen/Pelvis CT 12/01/16 0908 Signed Impressions: Service Date/Time: Thursday, December 01, 2016 09:43 - CONCLUSION: 1. Striated left nephrogram from recent prior contrast administration with associated mild left hydroureteronephrosis extending to the UVJ. A definite radiopaque ureteral calculus is not visualized although a very small calculus can be obscured by the dense contrast in the left ureter. Findings are most consistent with at least a partial left UVJ obstruction although differential consideration includes left sided pyelonephritis. Clinical correlation is recommended. Pierce Avendano MD Objective Remarks GENERAL: This is a well-nourished, well-developed patient, in no apparent distress. CARDIOVASCULAR: Regular rate and regular rhythm without murmurs, gallops, or rubs. RESPIRATORY: Clear to auscultation. Breath sounds equal bilaterally. No wheezes , rales, or rhonchi. GASTROINTESTINAL: Abdomen soft, non-tender, nondistended. Normal, active bowel sounds MUSCULOSKELETAL: Extremities without clubbing, cyanosis, or edema. NEURO: Alert & Oriented x4 to person, place, time, situation. Moves all ext x4 Medications and IVs Current Medications Sodium Chloride 1,000 ml @ 1,000 mls/hr Q1H IV Last administered on 12/01/16 09:18; Start 12/01/16 at 09:08; Stop 12/01/16 at 10:07; Status DC Sodium Chloride (NS Flush) 2 ml UNSCH PRN IV FLUSH FLUSH AFTER USING IV ACCESS ; Start 12/01/16 at 09:15 Morphine Sulfate (Morphine Inj) 6 mg ONCE ONCE IV PUSH Last administered on 11:49; Start 12/01/16 at 11:45; Stop 12/01/16 at 11:46; Status DC Sodium Chloride 1,000 ml @ 999 mls/hr BOLUS ONCE IV Last administered on 12/01 11:49; Start 12/01/16 at 11:45; Stop 12/01/16 at 12:45; Status DC Ondansetron HCl (Zofran Inj) 4 mg ONCE ONCE IV PUSH Last administered on 11:50; Start 12/01/16 at 11:45; Stop 12/01/16 at 11:46; Status DC Ondansetron HCl (Zofran Inj) 4 mg Q8H PRN IV PUSH NAUSEA Last administered on 12/02/16 17:47; Start 12/01/16 at 12:30 Hydromorphone HCl (Dilaudid Pf Inj) 1 mg Q4H PRN IV PUSH PAIN > 3 Last administered on 12/01/16 19:04; Start 12/01/16 at 12:30; Stop 12/02/16 at 10:23 ; Status DC Dextrose (D50w (Vial) Inj) 50 ml UNSCH PRN IV PUSH HYPOGLYCEMIA-SEE COMMENTS; Start 12/01/16 at 12:30 Glucagon (Glucagon Inj) 1 mg UNSCH PRN OTHER HYPOGLYCEMIA-SEE COMMENTS; Start 12/01/16 at 12:30 Insulin Aspart (NovoLOG SUPPLEMENTAL SCALE) 1 ACHS SLIDING SCALE SQ Last administered on 12/02/16 21:41; Start 12/01/16 at 17:00 Sodium Chloride 1,000 ml @ 100 mls/hr Q10H IV Last administered on 12/03/16 04:27; Start 12/01/16 at 13:00 Atorvastatin Calcium (Lipitor) 80 mg HS PO Last administered on 12/02/16 21:41 ; Start 12/01/16 at 21:00 Carvedilol (Coreg) 3.125 mg BID PO Last administered on 12/02/16 21:41; Start 12/01/16 at 21:00 Lorazepam (Ativan) 0.5 mg DAILY PRN PO ANXIETY; Start 12/01/16 at 12:30 Hydromorphone HCl (Dilaudid Pf Inj) 0.5 mg Q4H PRN IV PUSH BREAKTHROUGH PAIN; Start 12/02/16 at 12:30 Acetaminophen/ Hydrocodone Bitart ([place] 5-325 Mg) 1 tab Q4H PRN PO PAIN >3 Last administered on 12/02/16 18:16; Start 12/02/16 at 10:30 A/P Problem List: (1) Ureteral obstruction ICD Code: N13.5 - Crossing vessel and stricture of ureter without hydronephrosis Status: Acute Assessment and Plan A/P - left hydronephrosis urology follow-up appreciated- no surgical intervention at this time.for renogram today. continue with pain control- -acute kidney injury- likely post-renal- improving- continue IV fluid- BMP today ; pending. -CAD- s/p stent placement- resume antiplatelets soon - awaiting renogram and urology f/u- resume BB -diabetes mellitus;hold long acting insulin- accu-check with SSI -DVT prophylaxis with SCD's Discharge Planning dc home when pain is better and cleared by urology. Aviva Russ MD Dec 03, 2016 08:17
[2016-12-03 10:13] LABS: BICARBONATE 21.7 MEQ/L (21.0-32.0); POTASSIUM 4.7 MEQ/L (3.5-5.1)
[2016-12-03 12:00] VITALS: BP 112/69; PULSE 80; RESP 18; TEMP 98.4; O2SAT 90
[2016-12-03 16:00] VITALS: BP 119/76; PULSE 79; RESP 18; TEMP 98.5; O2SAT 90
[2016-12-03] MEDS: ACETAMIN 325 MG/BUTALBITAL 50 MG/CAFFEINE 40 MG TAB PO PRN (19:26)
[2016-12-03 20:00] VITALS: BP 148/71; PULSE 79; RESP 20; TEMP 98.4; O2SAT 92
[2016-12-03] MEDS: ATORVASTATIN 80 MG TAB PO SCH (21:55)
[2016-12-04] VITALS (7 sets, daily range): BP systolic 98–184; BP diastolic 50–88; PULSE 78–90; RESP 16–20; TEMP 98.3–99; O2SAT 86–100
[2016-12-04] MEDS: SODIUM CHLOR 0.9% 1000 ML INJ 1,000 ML IV SCH ×2 (00:19→11:00)
[2016-12-04] MEDS: INSULIN ASPART SUPPLEMENTAL SCALE SQ SCH ×4 (08:00→22:08)
[2016-12-04] MEDS: CARVEDILOL 3.125 MG TAB PO SCH ×2 (08:27→22:07)
[2016-12-04] MEDS: ONDANSETRON HCL 4 MG/2 ML VIAL IV PUSH PRN (08:27)
--- NOTE | 2016-12-04 08:36 | HHI.PR ---
Subjective Remarks in no acute distress. no fever. still with nausea and left flank pain. awaiting renogram. Objective Vitals Vital Signs Date Time Temp Pulse Resp B/P (MAP) Pulse Ox O2 Delivery O2 Flow Rate FiO2 12/04/16 04:00 98.6 82 18 140/66 (90) 91 12/04/16 00:00 98.3 79 18 98/50 (66) 92 12/03/16 20:00 98.4 79 20 148/71 (96) 92 12/03/16 19:39 Room Air 12/03/16 16:00 98.5 79 18 119/76 (90) 90 12/03/16 12:00 98.4 80 18 112/69 (83) 90 I/O 12/03/16 12/03/16 12/03/16 12/04/16 12/04/16 12/04/16 07:00 15:00 23:00 07:00 15:00 23:00 Intake Total 1660 ml 980 ml 892 ml 994 ml Output Total 600 ml Balance 1660 ml 980 ml 292 ml 994 ml Intake Oral 480 ml 720 ml 360 ml IV Total 1180 ml 980 ml 172 ml 634 ml Output Urine Total 600 ml # Voids 3 0 # Bowel Movements 2 Result Diagram: 12/01/16 1030 12/03/16 0850 Imaging Last Impressions Abdomen/Pelvis CT 12/01/16 0908 Signed Impressions: Service Date/Time: Thursday, December 01, 2016 09:43 - CONCLUSION: 1. Striated left nephrogram from recent prior contrast administration with associated mild left hydroureteronephrosis extending to the UVJ. A definite radiopaque ureteral calculus is not visualized although a very small calculus can be obscured by the dense contrast in the left ureter. Findings are most consistent with at least a partial left UVJ obstruction although differential consideration includes left sided pyelonephritis. Clinical correlation is recommended. Pierce Avendano MD Objective Remarks GENERAL: This is a well-nourished, well-developed patient, in no apparent distress. CARDIOVASCULAR: Regular rate and regular rhythm without murmurs, gallops, or rubs. RESPIRATORY: Clear to auscultation. Breath sounds equal bilaterally. No wheezes , rales, or rhonchi. GASTROINTESTINAL: Abdomen soft, some left flank tenderness, nondistended. Normal, active bowel sounds MUSCULOSKELETAL: Extremities without clubbing, cyanosis, or edema. NEURO: Alert & Oriented x4 to person, place, time, situation. Moves all ext x4 Medications and IVs Current Medications Sodium Chloride 1,000 ml @ 1,000 mls/hr Q1H IV Last administered on 12/01/16 09:18; Start 12/01/16 at 09:08; Stop 12/01/16 at 10:07; Status DC Sodium Chloride (NS Flush) 2 ml UNSCH PRN IV FLUSH FLUSH AFTER USING IV ACCESS ; Start 12/01/16 at 09:15 Morphine Sulfate (Morphine Inj) 6 mg ONCE ONCE IV PUSH Last administered on 11:49; Start 12/01/16 at 11:45; Stop 12/01/16 at 11:46; Status DC Sodium Chloride 1,000 ml @ 999 mls/hr BOLUS ONCE IV Last administered on 12/01 11:49; Start 12/01/16 at 11:45; Stop 12/01/16 at 12:45; Status DC Ondansetron HCl (Zofran Inj) 4 mg ONCE ONCE IV PUSH Last administered on 11:50; Start 12/01/16 at 11:45; Stop 12/01/16 at 11:46; Status DC Ondansetron HCl (Zofran Inj) 4 mg Q8H PRN IV PUSH NAUSEA Last administered on 12/04/16 08:27; Start 12/01/16 at 12:30 Hydromorphone HCl (Dilaudid Pf Inj) 1 mg Q4H PRN IV PUSH PAIN > 3 Last administered on 12/01/16 19:04; Start 12/01/16 at 12:30; Stop 12/02/16 at 10:23 ; Status DC Dextrose (D50w (Vial) Inj) 50 ml UNSCH PRN IV PUSH HYPOGLYCEMIA-SEE COMMENTS; Start 12/01/16 at 12:30 Glucagon (Glucagon Inj) 1 mg UNSCH PRN OTHER HYPOGLYCEMIA-SEE COMMENTS; Start 12/01/16 at 12:30 Insulin Aspart (NovoLOG SUPPLEMENTAL SCALE) 1 ACHS SLIDING SCALE SQ Last administered on 12/03/16 21:55; Start 12/01/16 at 17:00 Sodium Chloride 1,000 ml @ 100 mls/hr Q10H IV Last administered on 12/04/16 00:19; Start 12/01/16 at 13:00 Atorvastatin Calcium (Lipitor) 80 mg HS PO Last administered on 12/03/16 21:55 ; Start 12/01/16 at 21:00 Carvedilol (Coreg) 3.125 mg BID PO Last administered on 12/04/16 08:27; Start 12/01/16 at 21:00 Lorazepam (Ativan) 0.5 mg DAILY PRN PO ANXIETY; Start 12/01/16 at 12:30 Hydromorphone HCl (Dilaudid Pf Inj) 0.5 mg Q4H PRN IV PUSH BREAKTHROUGH PAIN Last administered on 12/04/16 08:28; Start 12/02/16 at 12:30 Acetaminophen/ Hydrocodone Bitart ([place] 5-325 Mg) 1 tab Q4H PRN PO PAIN >3 Last administered on 12/03/16 14:16; Start 12/02/16 at 10:30; Status Future Hold Acetaminophen/ Butalbital/ Caffeine (Fioricet 325-50-40) 1 tab Q6H PRN PO MIRGRAINE Last administered on 12/03/16 19:26; Start 12/03/16 at 19:00 Oxycodone/ Acetaminophen (Percoc[place] 5-325 Mg) 1 tab Q4H PRN PO Pain > 3; Start 12/03/16 at 20:30 A/P Problem List: (1) Ureteral obstruction ICD Code: N13.5 - Crossing vessel and stricture of ureter without hydronephrosis Status: Acute Assessment and Plan A/P - left hydronephrosis urology follow-up appreciated- no surgical intervention at this time.awaiting renogram and urology follow-up. continue with pain control and antiemetics as needed. -acute kidney injury- likely post-renal- improving- continue IV fluid- -CAD- s/p stent placement- resume antiplatelets soon - awaiting renogram and urology f/u- resumed BB -diabetes mellitus;hold long acting insulin- accu-check with SSI -DVT prophylaxis with SCD's Discharge Planning dc home-possible tomorrow when pain/nausea is better and cleared by urology. Aviva Russ MD Dec 04, 2016 08:36
[2016-12-04] MEDS ORDERED: PROMETHAZINE INJ 25 MG/ML VIAL IM PRN (08:45)
[2016-12-04] MEDS ORDERED: FUROSEMIDE 40 MG/4 ML VIAL ONE (09:12)
--- NOTE | 2016-12-04 09:47 | RADRPT ---
EXAM DATE/TIME: 12/04/2016 08:59 [facility] COMPARISON: No previous studies available for comparison. INDICATIONS : Left hydronephrosis and ureteral obstruction. DOSE: 21 mCi Tc99m DTPA IV MEDICATION: 40 mg Lasix IV MEDICAL HISTORY : Hypertension. Diabetes mellitus type 2. Coronary artery disease. SURGICAL HISTORY : Coronary artery stent. Appendectomy. Cholecystectomy. Left BKA. ENCOUNTER: Initial ACUITY: 2 days PAIN SCALE: 5/10 LOCATION: Left flank TECHNIQUE: Dynamic images were performed in the posterior projection for a total of 28 minutes. FINDINGS: FLOW: There is symmetric arrival of bolus to both kidneys. There is homogeneous perfusion to both kidneys. EXCRETION: There is minimal delayed transit on the left that washes out promptly with Lasix, Washout half-time i s 16.8 on the left 16 point one on the right. CONCLUSION: There is no evidence for obstruction. John Iverson MD FACR on December 04, 2016 at 9:42 Board Certified Radiologist. This report was verified electronically.
[2016-12-04] MEDS: oxyCODONE/ACETAMINOPHEN 5 MG/325 MG TAB PO PRN ×2 (12:08→18:56)
--- NOTE | 2016-12-04 13:34 | HHI.PR ---
Subjective Patient symptoms today No evidence of obstruction on renal scan. Patient appears to have persistent left flank pain, however clinically is comfortable -No immediate surgical intervention indicated at this time -Patient may need further evaluation, however this may be done as outpatient as her renal function as steadily improved -Patient is clear for discharge from Urology standpoint with [facility] follow-up. -Please call with questions Objective Vital Signs Vital Signs Date Time Temp Pulse Resp B/P (MAP) Pulse Ox O2 Delivery O2 Flow Rate FiO2 12/04/16 12:00 98.4 78 20 110/55 (73) 86 12/04/16 09:00 92 Room Air 12/04/16 08:00 99.0 90 20 184/88 (120) 89 12/04/16 04:00 98.6 82 18 140/66 (90) 91 12/04/16 00:00 98.3 79 18 98/50 (66) 92 12/03/16 20:00 98.4 79 20 148/71 (96) 92 12/03/16 19:39 Room Air 12/03/16 16:00 98.5 79 18 119/76 (90) 90 Intake & Output 12/04/16 12/04/16 07:00 19:00 Intake Total 1166 ml Balance 1166 ml Intake Oral 360 ml IV Total 806 ml # Voids 0 1 Result Diagram: 12/01/16 1030 12/03/16 0850 Imaging Last 24 hours Impressions Renal Scan w/Medication NM 12/04/16 0000 Signed Impressions: Service Date/Time: Sunday, December 04, 2016 08:59 - CONCLUSION: There is no evidence for obstruction. John Iverson MD FACR Medications and IVs Current Medications Medications (Trade) Dose Ordered Sig/Kadeem Route Start Time Stop Time Status Last Admin (NS Flush) 2 ml UNSCH PRN IV FLUSH 12/01/16 09:15 (Zofran Inj) 4 mg Q8H PRN IV PUSH 12/01/16 12:30 12/04/16 08:27 (D50w (Vial) Inj) 50 ml UNSCH PRN IV PUSH 12/01/16 12:30 (Glucagon Inj) 1 mg UNSCH PRN OTHER 12/01/16 12:30 (NovoLOG SUPPLEMENTAL SCALE) 1 ACHS SLIDING SCALE SQ 12/01/16 17:00 12/04/16 12:00 Sodium Chloride 1,000 ml @ 100 mls/hr Q10H IV 12/01/16 13:00 12/04/16 00:19 (Lipitor) 80 mg HS PO 12/01/16 21:00 12/03/16 21:55 (Coreg) 3.125 mg BID PO 12/01/16 21:00 12/04/16 08:27 (Ativan) 0.5 mg DAILY PRN PO 12/01/16 12:30 (Dilaudid Pf Inj) 0.5 mg Q4H PRN IV PUSH 12/02/16 12:30 12/04/16 08:28 (Schuyler 5-325 Mg) 1 tab Q4H PRN PO 12/02/16 10:30 Future Hold 12/03/16 14:16 (Fioricet 325-50-40) 1 tab Q6H PRN PO 12/03/16 19:00 12/03/16 19:26 (Percocet 5-325 Mg) 1 tab Q4H PRN PO 12/03/16 20:30 12/04/16 12:08 (Phenergan Inj) 25 mg Q8HR PRN IM 12/04/16 08:45 Assessment and Plan Problem List: (1) Diabetes mellitus ICD Code: E11.9 - Diabetes mellitus Status: Chronic (2) Ureteral colic ICD Code: N23 - Unspecified renal colic Status: Acute (3) Ureteral obstruction ICD Code: N13.5 - Crossing vessel and stricture of ureter without hydronephrosis Status: Acute Bobo Briseno MD Dec 04, 2016 13:34
[2016-12-04] MEDS: ACETAMIN 325 MG/BUTALBITAL 50 MG/CAFFEINE 40 MG TAB PO PRN (17:07)
[2016-12-04] MEDS: ASPIRIN EC 81 MG TABEC PO SCH (19:44)
[2016-12-04] MEDS ORDERED: TICAGRELOR 90 MG TAB PO SCH (21:00)
[2016-12-04] MEDS: ATORVASTATIN 80 MG TAB PO SCH (22:06)
[2016-12-04] MEDS ORDERED: MIDAZOLAM HCL 5 MG/ML VIAL (1 ML) ONE (23:41)
[2016-12-04] MEDS ORDERED: PROPOFOL 500 MG/50 ML INJ 50 ML ONE (23:43)
[2016-12-05] VITALS (18 sets, daily range): BP systolic 105–170; BP diastolic 57–83; PULSE 58–89; RESP 14–23; TEMP 98.3–99.8; O2SAT 99–100
[2016-12-05] MEDS ORDERED: MIDAZOLAM HCL 5 MG/ML VIAL (1 ML) IV ONE
--- NOTE | 2016-12-05 00:44 | RADRPT ---
EXAM DATE/TIME: 12/05/2016 00:09 [facility] COMPARISON: CHEST SINGLE AP, October 03, 2009, 11:07. INDICATIONS : ET tube and central line placement. MEDICAL HISTORY : Hypertension. Diabetes mellitus type 2. Coronary artery disease. SURGICAL HISTORY : Coronary artery stent. Appendectomy. Cholecystectomy. ENCOUNTER: Initial ACUITY: 1 day PAIN SCORE: Non-responsive. LOCATION: Bilateral chest FINDINGS: Endotracheal tube is present with tip 2-3 cm above the sasha. Right central line descends into the S VC. The lungs are symmetrically aerated and grossly clear. Cardiac contours are satisfactory for tech nique and projection. CONCLUSION: Satisfactory line and tube positioning. No pneumothorax Freddy Montez MD on December 05, 2016 at 0:42 Board Certified Radiologist. This report was verified electronically.
[2016-12-05] MEDS ORDERED: LACTATED RINGER'S 1000 ML INJ 1,000 ML IV ONE (01:00)
--- NOTE | 2016-12-05 01:06 | PD.PROCEDR ---
Procedure Note Procedure PROCEDURE NOTE PROCEDURE: Endotracheal intubation INDICATION: Acute respiratory failure, cardiac arrest DETAILS OF PROCEDURE: The patient was bagged with 100% FiO2 via [id number]. Procedure was done during CPR without sedation. Direct laryngoscopy was performed with a 2 Rosas laryngoscope blade and a grade II Cormack-Lehane view was obtained. On single attempt a size 8 endotracheal tube was visualized passing through the cords. Correct placement was confirmed with colorimetric CO2 detector. Breath sounds were equal bilaterally. No sounds auscultated over the stomach. The endotracheal tube was secured with a commercial tube umanzor at a depth of 22 cm at the lips. CXR demonstrated satisfactory endotracheal tube position without apparent complication. Allie Perez MD Dec 05, 2016 01:06
--- NOTE | 2016-12-05 01:06 | PD.PROCEDR ---
Central Line Procedure DATE: 12/05/16 CENTRAL LINE PLACEMENT: Right internal jugular vein. Ultrasound-guided INDICATION: Central venous access CONSENT Procedure was done emergently as patient was in extremis status post code with no IV access and in need of central venous line placement. DESCRIPTION OF THE PROCEDURE The patient was placed in supine position, Trendelenburg. The skin was cleansed with Chloraprep. Additional barrier precautions included large sterile drape, sterile gloves, sterile gown, face mask, and hat. 1 % lidocaine was used for local anesthesia. Under direct ultrasound guidance and on single attempt, the vein was accessed with an introducer needle. The guide wire was advanced and the tract was dilated. Using Seldinger technique a 7 Maori 20 cm antimicrobial coated triple-lumen catheter was advanced to a depth of 18 centimeters. The guide wire was removed. All ports had good return of dark venous blood and flushed easily with saline. The central line was secured with 2.0 silk. A sterile dressing with antibiotic disc was applied. ESTIMATED BLOOD LOSS: Minimal COMPLICATIONS: No apparent complications. STAT chest x-ray demonstrated satisfactory central venous line position without apparent competition. ESTIMATED BLOOD LOSS: Less than 1 cc. Allie Perez MD Dec 05, 2016 01:06
--- NOTE | 2016-12-05 01:06 | PD.PROCEDR ---
Procedure Note Procedure Date: 12/04/16 Procedure: Cardiopulmonary resucitation Indication: Asystolic cardiac arrest Details of procedure: Responded to code blue call overhead. Patient had reportedly gone to the bathroom and then complained of sudden onset SOB and asked for assistance with sitting up and then became unresponsive with no pulse. Asystole on monitor and CPR was initiated per ACLS protocol. There was no existing IV access and nurses were attempting IV access unsuccessfully. I began to proceed with CVL access however unfortunately the central line was knocked on the floor while patient was turned to position the backboard. Proceeded with intubation to provide route for epi administration and to secure airway. Meanwhile, patient achieved ROSC after 6 minutes of CPR. No ACLS meds were administered. Allie Perez MD Dec 05, 2016 01:06
--- NOTE | 2016-12-05 01:31 | PD.CONS ---
[facility] Service Critical Care Medicine Consult Requested By Dr. Russ Reason for Consult Code Blue Primary Care Physician Dr. Cuba in [facility] History of Present Illness Date of admission 12/01/16 Date of consultation 12/05/16 51-year-old female with past medical history of coronary artery disease with stents, hypertension, diabetes, morbid obesity, PAD status post left BKA, CKD who originally arrived at [facility] emergency department on 12/01/16 with a one-day history of left lower quadrant pain. She had previously had a CT abdomen and pelvis with IV contrast at [facility] that was reportedly negative. On the CT abdomen and pelvis that was obtained at [place] had residual contrast in the left ureter. There was mild left hydrouretero-hydronephrosis. No ureteral stone was visible. Urology has evaluated and felt that this may represent a small ureteral stone which would likely pass spontaneously versus a UVJ stricture. Renogram was negative for obstruction on 12/04 and she was cleared for d/c by urology. Creatinine on admission was 1.73 and had down trended to 1.36. She was afebrile and urinalysis was negative for evidence of infection. [facility] responded to CODE BLUE. RN states that patient had gotten up with the tech to go to the bathroom and when she returned to the bed she began complaining of sudden onset of shortness of breath. She reportedly did not mention chest pain. She then became unresponsive and was in asystolic cardiac arrest and CPR was initiated. She had no IV access as multiple nurses had attempted to place a peripheral IV access prior to the arrest. She was intubated and had ROSC after 6 minutes. Glucose was greater than 200. She did not receive any ACLS meds due to lack of IV access despite ongoing attempts by nursing to place PIV. She obtained ROSC before intubation. She is in sinus rhythm in the 70s and hypertensive. CVL was placed. Review of Systems ROS Limitations: Intubated Past Family Social History Allergies: Coded Allergies: cefaclor (Unverified Allergy, Severe, HIVES, 12/01/16) erythromycin base (Unverified Allergy, Severe, HIVES, 12/01/16) levofloxacin (Unverified Allergy, Severe, HIVES, 12/01/16) penicillin G (Unverified Allergy, Severe, HIVES, 12/01/16) amoxicillin (Verified Allergy, Unknown, 12/01/16) promethazine (Verified Allergy, Unknown, 12/01/16) Past Medical History Coronary artery disease with prior myocardial infarction and stents placed at [facility]. 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 Hypertension Diabetes Hyperlipidemia Anxiety Morbid obesity Status post left BKA with prosthesis CKD unknown stage Peripheral neuropathy Gastroparesis Peripheral arterial disease Family not aware of h/o CHF. Reportedly has been off lasix outpatient for a couple of weeks. Past Surgical History Total hysterectomy D&C Left BKA appy Cholecystectomy EGD 1 year ago reportedly negative per family Colonoscopy 2 years ago reportedly negative per family. Reported Medications Brilinta 90 mg by mouth twice a day Atorvastatin 80 g by mouth daily at bedtime Carvedilol 3.125 mill grams by mouth twice a day Aspirin 81 mill grams by mouth daily Lorazepam 0.5 mill grams by mouth daily as needed for anxiety Lasix 40 mg spelled daily Zofran 4 mill grams by mouth as needed for nausea Reglan 5 mg by mouth Detemir 6 units subcutaneous daily at bedtime NovoLog flex pen Family History Mother has carotid artery stenosis but it is reportedly otherwise healthy Father's medical history is unknown. Daughter has Factor V Leiden. Unknown if father had Factor V. Social History Lifetime nonsmoker No alcohol or illicit drug use She used to work as a [employer] Physical Exam Vital Signs Vital Signs Date Time Temp Pulse Resp B/P (MAP) Pulse Ox O2 Delivery O2 Flow Rate FiO2 12/04/16 23:23 100 12/04/16 20:00 98.7 80 16 119/58 (78) 92 12/04/16 16:00 98.4 80 20 114/66 (82) 89 12/04/16 12:00 98.4 78 20 110/55 (73) 86 12/04/16 09:00 92 Room Air 12/04/16 08:00 99.0 90 20 184/88 (120) 89 12/04/16 04:00 98.6 82 18 140/66 (90) 91 Physical Exam GENERAL: Obese female who is orotracheally intubated. SKIN: Warm and dry. There is skin breakdown under right breast but no necrosis or evidence of infection. Erythematous candidal appearing rash at umbilicus. HEAD: Atraumatic. Normocephalic. EYES: Pupils equal and round, 2mm and reactive bilaterally. . No scleral icterus. No injection or drainage. ENT: No nasal bleeding or discharge. Mucous membranes pink and moist. NECK: Trachea midline. Very thick neck eliminates any possible assessment for JVD. CARDIOVASCULAR: Regular rate and rhythm, sinus on the monitor in 80s. No murmurs rubs or gallops. RESPIRATORY: Diminished breathsounds bibasilar with no wheezes, rales or rhonchi. GASTROINTESTINAL: Abdomen soft, non-tender, nondistended. Bowel sounds hypoactive : Levy inserted and light myrna urine output. MSK: L leg s/p BKA with well healed incision scar. 1+ edema of all extremities. NEUROLOGICAL: Opened eyes and made eye contact post arrest. Followed commands with squeezing bilateral hands and moving RLE to command. Result Diagram: 12/01/16 1030 12/03/16 0850 Assessment and Plan Problem List: (1) Peripheral neuropathy ICD Code: G62.9 - Polyneuropathy, unspecified Status: Chronic (2) Cardiac arrest ICD Code: I46.9 - Cardiac arrest, cause unspecified Status: Acute (3) Leukocytosis ICD Code: D72.829 - Elevated white blood cell count, unspecified Status: Acute (4) CKD (chronic kidney disease) ICD Code: N18.9 - Chronic kidney disease, unspecified Status: Chronic (5) HTN (hypertension) ICD Code: I10 - Essential (primary) hypertension Status: Chronic (6) Transaminitis ICD Code: R74.0 - Nonspecific elevation of levels of transaminase and lactic acid dehydrogenase [LDH] Status: Acute (7) Obesity ICD Code: E66.9 - Obesity, unspecified Status: Chronic (8) Diabetes mellitus ICD Code: E11.9 - Diabetes mellitus Status: Chronic (9) Hydroureter ICD Code: N13.4 - Hydroureter Status: Acute (10) CAD (coronary artery disease) ICD Code: I25.10 - Atherosclerotic heart disease of [place] coronary artery without angina pectoris (11) Gastroparesis ICD Code: K31.84 - Gastroparesis Status: Chronic (12) Respiratory failure, acute ICD Code: J96.00 - Acute respiratory failure, unspecified whether with hypoxia or hypercapnia Status: Acute (13) Hyperlipidemia ICD Code: E78.5 - Hyperlipidemia, unspecified Status: Chronic Assessment and Plan NEURO: Peripheral neuropathy Postarrest patient is following commands while on mechanical ventilation. Propofol as needed for sedation RASS target -2 RESP: Acute respiratory failure Probable DAE Ventilator bundle, ACV tidal volume 500 as rate 16/P5/FiO2 100%. She is now following commands. SBT in a.m. if hemodynamically stable. Obtain ABG CXR - mild cardiomegaly. No infiltrate. CV: Asystolic cardiac arrest Coronary artery disease with prior stents ~ 2 years ago. History of hypertension Hyperlipidemia Peripheral arterial disease s/p L BKA EKG with no ST elevation. Will follow-up cardiac markers and echo. Symptoms concerning for pulmonary embolism. Will empirically place on heparin given high index of suspicion with sudden SOB, D-dimer elevation, family h/o of Factor V Leiden and VTE, not on pharmacologic DVT prophylaxis. Will obtain CTPA. Creatinine 1.66, last IV contrast was 11/30 Has been on DAPT with Brilinta 90 bid and ASA 81 daily. Will hold ASA while on therapeutic anticoagulation. Continue Atorvastatin 80 mg po qhs for now, continue to monitor transaminase and hold if indicated. 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 GI: Morbid obesity Gastroparesis Transaminase elevation Patient is not chronically on Reglan for gastroparesis because they "didn't work ". She was prescribed Reglan during recent ED visit due to nausea that was unrelieved with Zofran Place OGT to LIWS. FEN/RENAL: Acute kidney injury with unknown baseline creatinine CKD unknown stage Insert levy catheter for close monitoring of UOP s/p cardiac arrest. Monitor electrolytes and replace as clinically indicated. Mild transaminase elevation. Follow-up right upper quadrant ultrasound. Bolused 1 L LR for hypotension and responded to IVF. Continue 0.9 NaCl @ 100 ml/ hr. ID: Leukocytosis Urinalysis was obtained and demonstrates no evidence of UTI. Chest x-ray shows no infiltrate. Monitor for signs and symptoms of infection HEME: Anemia Hgb 10.7. Prior hgb 13 though this may be combination of dilutional and due to multiple lab draws and she does not have clinical evidence of bleeding and potential benefit of heparin at this point appears to outweigh risks. Reportedly patient had EGD 1 year ago and colonoscopy 2 years ago that were negative. ENDO: Diabetes mellitus Has been on low-dose insulin sliding scale before meals at bedtime. Glycemic control is not at target. Will increase to medium dose sliding scale every 4 hours. We'll likely need to resume detemir PROPH: Initiating heparin drip. Famotidine 10 mg IV every 12 hours for stress ulcer prophylaxis ACCESS: Right IJ central venous line placed 11/1016 #1 Family updated at bedside. Patient is full code. Performed u/s guided right radial artery stick to obtain ABG after multiple attempts by RT unsuccessful. No apparent complication. Critical care time 75 minutes exclusive of separately billable procedures. Problem Qualifiers (1) CKD (chronic kidney disease): Qualified Codes: N18.9 - Chronic kidney disease, unspecified (2) HTN (hypertension): Qualified Codes: I10 - Essential (primary) hypertension (3) Obesity: (4) Diabetes mellitus: Qualified Codes: E11.52 - Type 2 diabetes mellitus with diabetic peripheral angiopathy with gangrene; Z79.4 - assisted (current) use of insulin Allie Perez MD Dec 05, 2016 01:31
[2016-12-05] MEDS: PROPOFOL 1000 MG/100 ML IV PRN ×5 (01:47→22:54)
[2016-12-05 01:48] LABS: AUTOMATED NEUTROPHIL # 12.4 TH/MM3 (1.8-7.7); BASOPHIL # 0.1 TH/MM3 (0-0.2); BASOPHIL % 0.4 % (0.0-2.0); EOSINOPHIL # 0.1 TH/MM3 (0-0.4); EOSINOPHIL % 0.5 % (0.0-4.0); HEMATOCRIT 33.4 % (35.0-46.0); HEMO FLAGS DIFF FINAL; LYMPH % 11.3 % (9.0-44.0); LYMPHOCYTE # 1.7 TH/MM3 (1.0-4.8); MEAN CELL VOLUME 88.3 FL (80.0-100.0); MEAN CORPUSCULAR HEMOGLOBIN 28.5 PG (27.0-34.0); MEAN CORPUSCULAR HGB CONC 32.2 % (32.0-36.0); MONO % 5.7 % (0.0-8.0); NEUT % 82.1 % (16.0-70.0); PLATELET COUNT 241 TH/MM3 (150-450); RED BLOOD COUNT 3.78 MIL/MM3 (4.00-5.30); RED CELL DISTRIBUTION WIDTH 15.6 % (11.6-17.2); WHITE BLOOD COUNT 15.1 TH/MM3 (4.0-11.0)
[2016-12-05 01:54] LABS: BLOOD, URINE NEG (NEG); GLUCOSE,URINE TRACE mg/dL (NEG); HYALINE CAST, URINE 1 /lpf (RARE); KETONE, URINE NEG (NEG); NITRITE,URINE NEG (NEG); PH, URINE 5.5 (5.0-8.5); SQUAMOUS EPITHELIAL CELL URINE <1 /hpf (0-5); URINE COLOR LIGHT-YELLOW (YELLW/STRAW)
[2016-12-05 01:56] LABS: COMMENT (UR) CATH-CULT NOT IND; CULTURE IF INDICATED CATH CULTURE NOT IND
[2016-12-05 01:59] LABS: PROTHROMBIN TIME - PATIENT 11.4 SEC (9.8-11.6)
[2016-12-05 02:03] LABS: ALT (GPT) 74 U/L (10-53); ANION GAP 8 MEQ/L (5-15); AST (GOT) 46 U/L (15-37); BICARBONATE 23.5 MEQ/L (21.0-32.0); BLOOD UREA NITROGEN 36 MG/DL (7-18); CHLORIDE 110 MEQ/L (98-107); GLOMERULAR FILTRATION RATE 33 ML/MIN (>89); MAGNESIUM 1.8 MG/DL (1.5-2.5); POTASSIUM 5.1 MEQ/L (3.5-5.1); SODIUM (NA) 141 MEQ/L (136-145)
[2016-12-05 02:06] LABS: ALKALINE PHOSPHATASE 178 U/L (45-117); TOTAL BILIRUBIN ADULT 0.1 MG/DL (0.2-1.0)
[2016-12-05] MEDS ORDERED: GLUCAGON 1 MG/ML VIAL OTHER PRN (03:45)
[2016-12-05] MEDS ORDERED: DEXTROSE 50% IN WATER 50 ML VIAL(D50) IV PUSH PRN (03:45)
[2016-12-05] MEDS: INSULIN ASPART SUPPLEMENTAL SCALE SQ SCH ×5 (04:00→20:00)
[2016-12-05] MEDS ORDERED: HEPARIN-D5W 25,000 U/250 ML 250 ML IV PRN (04:15)
[2016-12-05 04:16] LABS: BLOOD GAS BASE EXCESS -3.9 mmol/L (-2-2); BLOOD GAS CARBOXYHEMOGLOBIN 1.1 % (0-4); BLOOD GAS HCO3 20 mmol/L (22-26); BLOOD GAS O2 HGB SATURATION 98 % (90-100); BLOOD GAS OXYGEN CONTENT 14.9 Vol % (12.0-20.0); BLOOD GAS PCO2 30 mmHg (38-42); BLOOD GAS PO2 217 mmHg (61-120); BLOOD GAS TOTAL HGB 10.5 G/DL (12.0-16.0); CRITICAL VALUE NO; TEMP CORR TO 98.6
[2016-12-05 04:17] LABS: DRAW SITE RT RADIAL; FIO2 100 %; OXYGEN DEVICE VENT; VENT SETTINGS SEE COMMENTS
[2016-12-05 04:18] LABS: NUMBER OF ARTERIAL PUNCTURES 1; STAT NO; ULNAR PULSE PRESENT
[2016-12-05] MEDS ORDERED: IODIXANOL 320 MG/ML 10 ML VIAL (for Rad CT) IVCONTRAST ONE (05:24)
--- NOTE | 2016-12-05 05:48 | RADRPT ---
EXAM DATE/TIME: 12/05/2016 05:15 [facility] COMPARISON: No previous studies available for comparison. INDICATIONS : Elevated D-Dimer, evaluate for embolism. IV CONTRAST: 75 cc Visipaque (iodixanol) IV RADIATION DOSE: 25.20 CTDIvol (mGy) MEDICAL HISTORY : Cardiovascular disease. Diabetes mellitus type 2. SURGICAL HISTORY : Cholecystectomy. Hysterectomy.Cardiac stents. ENCOUNTER: Initial ACUITY: 1 day PAIN SCALE: Non-responsive LOCATION: chest TECHNIQUE: Volumetric scanning of the chest was performed using a pulmonary embolism protocol MIP images were re constructed. Using automated exposure control and adjustment of the mA and/or kV according to patien t size, radiation dose was kept as low as reasonably achievable to obtain optimal diagnostic quality images. DICOM format image data is available electronically for review and comparison. Follow-up recommendations for detected pulmonary nodules are based at a minimum on nodule size and pa tient risk factors according to Fleischner Society Guidelines. FINDINGS: PULMONARY ARTERIES: No filling defects are seen in the pulmonary arteries through the segmental level. LUNGS: Is mild bibasilar atelectasis associated with small effusions PLEURAE: Small bilateral effusions MEDIASTINUM: There is good visualization of the great vessels of the middle mediastinum. No evidence of mediastin al or hilar adenopathy/mass. MUSCULOSKELETAL: Within normal limits for patient age. MISCELLANEOUS: The visualized upper abdominal organs demonstrate no acute abnormality. CONCLUSION: No evidence of pulmonary embolism Freddy Montez MD on December 05, 2016 at 5:43 Board Certified Radiologist. This report was verified electronically.
[2016-12-05] MEDS: FAMOTIDINE 20 MG/2 ML VIAL IV PUSH SCH ×2 (05:53→17:00)
[2016-12-05] MEDS: NYSTATIN 100,000 U/GM OINT 15 GM TUBE TOPICAL SCH ×3 (06:00→22:00)
[2016-12-05] MEDS: CHLORHEXIDINE 0.12% (ORAL KIT) 15 ML CUP MT SCH ×2 (08:00→20:00)
--- NOTE | 2016-12-05 09:50 | RADRPT ---
EXAM DATE/TIME: 12/05/2016 09:06 [facility] COMPARISON: No previous studies available for comparison. INDICATIONS : ICH. MEDICAL HISTORY : Hypertension. Diabetes mellitus type 2. SURGICAL HISTORY : Appendectomy. Hysterectomy. Lt BKA ENCOUNTER: Subsequent ACUITY: 4-6 days PAIN SCORE: Nonresponsive. LOCATION: cranial Please note a normal MRA of the brain does not entirely exclude the possibility of a small aneurysm, nor the possibility of distal intracranial vessel disease. TECHNIQUE: 3D time of flight MRA was performed. Source images, multiplanar STS MIP, and 3D volume MIP reconstru ctions were reviewed. FINDINGS: There is excellent visualization of the major intracranial arteries out to the second-order branch ve ssels. There is no evidence for aneurysm, vessel truncation or stenosis, and no evidence for vascula r malformation. CONCLUSION: Normal examination. No evidence of aneurysm, AVM, vasculopathy or stenosis. Jono Jose MD on December 05, 2016 at 9:44 Board Certified Radiologist. This report was verified electronically.
--- NOTE | 2016-12-05 10:08 | RADRPT ---
EXAM DATE/TIME: 12/05/2016 09:06 [facility] COMPARISON: No previous studies available for comparison. INDICATIONS : ICH. MEDICAL HISTORY : Hypertension. Diabetes mellitus type 2. CAD SURGICAL HISTORY : Appendectomy. Hysterectomy. Lt BKA ENCOUNTER: Subsequent ACUITY: 4-6 days PAIN SCORE: Nonresponsive. LOCATION: cranial TECHNIQUE: Multiplanar, multisequence MRI of the brain was performed without contrast. FINDINGS: CEREBRUM: The ventricles are normal for age. No evidence of midline shift, mass lesion, hemorrhage or acute in farction. No extraaxial fluid collections are seen. The pituitary gland and suprasellar cistern are normal in configuration. WHITE MATTER: No significant signal abnormalities are seen in the white matter. POSTERIOR FOSSA: The cerebellum and brainstem are intact. The 4th ventricle is midline. The cerebellopontine angle is unremarkable. The cerebellar tonsils are normal in position. DIFFUSION IMAGING: No focal areas of restricted diffusion are seen. No evidence of acute infarction. EXTRACRANIAL: The visualized portions of the orbits and paranasal sinuses are unremarkable. CONCLUSION: No acute disease. No evidence of acute infarct, hemorrhage, mass or edema. Jono Jose MD on December 05, 2016 at 10:04 Board Certified Radiologist. This report was verified electronically.
[2016-12-05] MEDS ORDERED: HEPARIN SODIUM - IV 10,000 UNITS/10 ML VIAL IV PUSH PRN ×2 (10:15→16:15)
[2016-12-05] MEDS ORDERED: HEPARIN - 10,000 UNITS/ML IV ADDITIVE IV PUSH PRN ×2 (10:15→16:15)
--- NOTE | 2016-12-05 10:26 | RADRPT ---
EXAM DATE/TIME: 12/05/2016 07:57 [facility] COMPARISON: CT ABDOMEN & PELVIS W CONTRAST, October 03, 2009, 14:30. CT ABDOMEN & PELVIS W/O CONTRAST, November, 9:43. INDICATIONS : Increased lab values. MEDICAL HISTORY : Hypercholesterolemia. Myocardial infarction. Renal calculi. Retina starting to detach. Neuropathy. Mi graines. Gastricporisis. Renal disease. Arthritis. Osteoporosis. DVT. Hep A. Diabetes. Thrombocytopen ia. SURGICAL HISTORY : Cholecystectomy. section. Hysterectomy. Cardiac stents. D&C. Left BKA. Appendectomy. ENCOUNTER: Initial ACUITY: 1 day PAIN SCORE: Nonresponsive. LOCATION: Bilateral upper quadrant MEASUREMENTS: LIVER: 22.5 cm length COMMON DUCT: 4 mm RIGHT KIDNEY: 9.8 x 4.5 x 5.2 cm SPLEEN: 9.8 cm length FINDINGS: Examination is limited by patient's body habitus. LIVER: Liver is enlarged with diffusely increased echogenicity. No significant intrahepatic ductal dilatatio n or focal mass. There is very subtle brace free fluid adjacent to the inferior liver margin. COMMON DUCT: No intraluminal mass or stone visualized. GALLBLADDER: Surgically absent. PANCREAS: Not well demonstrated. RIGHT KIDNEY: No hydronephrosis, stone or mass. SPLEEN: No focal lesion. CONCLUSION: 1. Hepatomegaly with diffusely increased hepatic echogenicity consistent with hepatic steatosis versu s medical liver disease. 2. Trace free fluid along the inferior hepatic margin. 3. Status post cholecystectomy with normal caliber common bile duct. Pierce Avendano MD on December 05, 2016 at 10:18 Board Certified Radiologist. This report was verified electronically.
--- NOTE | 2016-12-05 10:29 | RADRPT ---
EXAM DATE/TIME: 12/05/2016 08:08 [facility] COMPARISON: No previous studies available for comparison. INDICATIONS : Bilateral leg swelling. MEDICAL HISTORY : Hypercholesterolemia. Myocardial infarction. Renal calculi. Retina starting to detach. Neuropathy. Mi graines. Gastricporisis. Renal disease. Arthritis. Osteoporosis. DVT. Hep A. Diabetes. Thrombocytopen ia. SURGICAL HISTORY : Hysterectomy.Cholecystectomy. section.Cardiac stents. D&C. Left BKA. Appendectomy. ENCOUNTER: Initial ACUITY: 1 day PAIN SCORE: Non-responsive LOCATION: Bilateral leg. TECHNIQUE: Venous ultrasound of the left and right leg was performed from the inguinal ligament to the proximal calf. Real-time, color Doppler and spectral tracing, compression and augmentation techniques were us ed. FINDINGS: RIGHT LEG: There is normal compressibility of the deep venous system from the inguinal region to the proximal ca lf. No echogenic clot is seen in the lumen of the common femoral, femoral, popliteal, and posterior tibial veins. There is a normal response of the venous system to proximal and distal augmentation. LEFT LEG: There is normal compressibility of the deep venous system from the inguinal region to the BKA stump. No echogenic clot is seen in the lumen of the common femoral, femoral, and popliteal veins. There is a normal response of the venous system to proximal and distal augmentation. CONCLUSION: 1. No sonographic evidence for lower extremity DVT. Pierce Avendano MD on December 05, 2016 at 10:26 Board Certified Radiologist. This report was verified electronically.
--- NOTE | 2016-12-05 10:36 | RADRPT ---
EXAM DATE/TIME: 12/05/2016 09:06 [facility] COMPARISON: MRI BRAIN W/O CONTRAST, December 05, 2016, 9:06. INDICATIONS : ICH. MEDICAL HISTORY : Hypertension. Diabetes mellitus type 2. CAD SURGICAL HISTORY : Appendectomy. Hysterectomy. Lt BKA ENCOUNTER: Subsequent ACUITY: 4-6 days PAIN SCORE: Nonresponsive. LOCATION: cranial Percent stenosis is calculated using the diameter of the stenotic region over the diameter of the nor mal distal internal carotid artery. TECHNIQUE: 3D time of flight MRA of the extracranial circulation was performed using a neurovascular coil. Post processing was performed including rotating subvolume maximum intensity projections of each carotid artery, rotating full-volume maximum intensity projections of both carotid arteries, sagittal and cor onal sliding thin-slab reformations of each carotid artery, and left oblique sliding thin slab reform ation through the aortic arch to include the origin of the arch branch vessels. FINDINGS: AORTIC ARCH: There is a three vessel origin of the great vessels from the aorta. No evidence of ostial narrowing. RIGHT CAROTID: The common carotid artery is intact. The carotid bulb has a normal configuration without ulceration or narrowing. The internal carotid artery lumen is smooth without stenosis. The external carotid ar herminia is intact. LEFT CAROTID: The common carotid artery is intact. The carotid bulb demonstrates an area of mild narrowing extendin g up into the origin of the left internal carotid this is felt to be in the range of 20-30% by NASCET criteria. The more cephalad portion of the internal carotid is widely patent. VERTEBRALS: The vertebral arteries have a symmetric diameter. No stenotic lesions are seen. CONCLUSION: 1. Left carotid: 2. There is mild narrowing at the origin of the left internal carotid this is estimated to be in the range of 20-30% by NASCET criteria. 3. 4. Right carotid: 5. There is no hemodynamically significant carotid artery stenosis. 6. Both vertebral arteries are widely patent. Gus Iverson MD on December 05, 2016 at 9:58 Board Certified Radiologist. This report was verified electronically.
[2016-12-05 12:52] LABS: BICARBONATE 22.7 MEQ/L (21.0-32.0); POTASSIUM 4.3 MEQ/L (3.5-5.1)
[2016-12-05 12:53] LABS: AUTOMATED NEUTROPHIL # 7.9 TH/MM3 (1.8-7.7); BASOPHIL % 0.3 % (0.0-2.0); EOSINOPHIL # 0.1 TH/MM3 (0-0.4); EOSINOPHIL % 0.8 % (0.0-4.0); HEMATOCRIT 33.4 % (35.0-46.0); HEMO FLAGS DIFF FINAL; LYMPH % 17.3 % (9.0-44.0); LYMPHOCYTE # 1.8 TH/MM3 (1.0-4.8); MEAN CELL VOLUME 87.3 FL (80.0-100.0); MEAN CORPUSCULAR HEMOGLOBIN 28.5 PG (27.0-34.0); MEAN CORPUSCULAR HGB CONC 32.7 % (32.0-36.0); MONO % 7.2 % (0.0-8.0); NEUT % 74.4 % (16.0-70.0); PLATELET COUNT 214 TH/MM3 (150-450); RED BLOOD COUNT 3.82 MIL/MM3 (4.00-5.30); RED CELL DISTRIBUTION WIDTH 15.2 % (11.6-17.2); WHITE BLOOD COUNT 10.6 TH/MM3 (4.0-11.0)
--- NOTE | 2016-12-05 13:21 | EKG ---
Date Performed: 12/05/2016 Time Performed: 00:18:54 PTAGE: 51 years EKG: Sinus rhythm Extensive ST-T changes are nonspecific Low QRS voltages in limb leads Borderline ECG NO PREVIOUS TRACING DOCTOR: Marquez Verduzco Interpretating Date/Time 12/05/2016 13:17:56
[2016-12-05] MEDS: MAGNESIUM SULFATE 1 GM PREMIX 100 ML IV SCH ×2 (16:00→17:00)
[2016-12-05] MEDS: SODIUM CHLOR 0.9% 1000 ML INJ 1,000 ML IV SCH (17:10)
[2016-12-05] MEDS ORDERED: LABETALOL HCL 100 MG/20 ML VIAL IV PUSH PRN (17:30)
[2016-12-05] MEDS ORDERED: NITROGLYCERIN 2% OINT 1 GM PACKET TOPICAL PRN (17:30)
--- NOTE | 2016-12-05 17:44 | RADRPT ---
EXAM DATE/TIME: 12/05/2016 16:07 [facility] COMPARISON: No previous studies available for comparison. INDICATIONS : Bilateral arm swelling. MEDICAL HISTORY : Myocardial infarction. Hypercholesterolemia. Neuropathy. Migraines. Gastricporsis. Gall bladder dise ase . Renal disease. Kidney stones. Arthritis. Osteoporsis. DVT. SURGICAL HISTORY : Cholecystectomy. section. Hysterectomy.Dilation and curettage. Left foot amputation. ENCOUNTER: Initial ACUITY: 1 day PAIN SCORE: 2/10 LOCATION: Bilateral arms. FINDINGS: RIGHT UPPER EXTREMITY: There is spontaneous flow documented in the brachial, basilic, cephalic, axillary, and subclavian vei ns. The vessels are compressible and augmentation response is documented. No filling defects are se en. The flow is phasic with respiration. Direction of flow in the jugular vein is caudal. LEFT UPPER EXTREMITY: There is spontaneous flow documented in the brachial, basilic, cephalic, axillary, and subclavian vei ns. The vessels are compressible and augmentation response is documented. No filling defects are se en. The flow is phasic with respiration. Direction of flow in the jugular vein is caudal. CONCLUSION: No evidence of superficial or deep venous thrombosis. Suboptimal visualization of the right subclavian vein do to central line. Jono Jose MD on December 05, 2016 at 17:40 Board Certified Radiologist. This report was verified electronically.
[2016-12-05] MEDS: hydrALAZINE HCL 20 MG/ML VIAL IV PUSH PRN (17:45)
--- NOTE | 2016-12-05 21:41 | MB ---
cc: GRANT RICH M.D. DATE OF CONSULTATION 12/05/2016 REASON FOR CONSULTATION Cardiorespiratory arrest. HISTORY OF PRESENT ILLNESS This is a 51-year-old white female apparently had respiratory arrest followed by asystole today. She had successful cardiopulmonary resuscitation with no medications. She came right back. Post cardiopulmonary resuscitation, EKG showed nonspecific ST-T wave changes. Three sets of enzymes were normal. I do not know the patient. I am covering for Dr. Tejada today. Apparently she lives in [place] and has been seeing Dr. Tejada according to the family and Dr. Cuba is primary care. She has had coronary artery stents in the past 2 years ago. She is known to have hypertension, diabetes and morbid obesity. She also has had peripheral vascular disease with left BKA. She had chronic renal disease and was admitted for left lower quadrant pain. Urology diagnosed her with a kidney stone with pyelonephritis. At the moment she is intubated. Blood pressure is normal except at times low due to sedation. Heart rate is normal. She is being sedated. REVIEW OF SYSTEMS Unobtainable. ALLERGIES TO CEFACLOR, ERYTHROMYCIN, LEVAQUIN, PENICILLIN, AMOXICILLIN, PROMETHAZINE. PAST MEDICAL HISTORY 1. Stenting placed at [facility] by Dr. Tejada. 2. Hypertension. 3. Diabetes. 4. Hyperlipidemia. 5. Morbid obesity. 6. Post below-knee amputation. 7. Chronic renal insufficiency. 8. Peripheral neuropathy. 9. Gastroparesis. 10. Peripheral arterial disease. FAMILY HISTORY Unobtainable. PAST SURGICAL HISTORY 1. Hysterectomy. 2. Dilation and curettage. 3. section. 4. Left below-knee amputation. 5. Cholecystectomy. MEDICATIONS At home: 1. Brilinta. 2. Lipitor. 3. Carvedilol. 4. Aspirin. 5. Lorazepam. 6. Lasix. 7. Zofran. 8. Reglan. 9. Insulin. SOCIAL HISTORY Obtainable. Apparently she is a non-smoker and non-drinker. No use of recreational drug. PHYSICAL EXAMINATION VITAL SIGNS: Blood pressure is 120/70, pulse is 70 per minute. Afebrile. HEAD AND NECK: Showed the patient intubated. CHEST: Exam was clear. CARDIOVASCULAR: Examination showed normal neck vein. S1-S2 normal. No S3, no S4. No murmur. ABDOMEN: Examination revealed obese abdomen. Liver and spleen not palpable. CENTRAL NERVOUS SYSTEM: Examination revealed the patient is sedated and intubated. EXTREMITIES: Peripheral vascular left below-knee amputation. ASSESSMENT 1. Most likely respiratory arrest initially followed by cardiac asystole successfully resuscitated now intubated. 2. Questionable history of hypercoagulable state with factor V deficiency. 3. History of coronary stenting by Dr. Tejada. 4. Hypertension, diabetes and hyperlipidemia. 5. Chronic insufficiency. PLAN At this point we do not know the reason for the respiratory arrest as this is being investigated. I would notify Dr. Tejada. At this point echocardiogram and EKG followup will be performed. MD MANDY Baird/SAMANTHA /8:42 PM /9:17 PM MTDMeliton
[2016-12-05 22:09] LABS: APTT (PATIENT) 38.4 SEC (24.3-30.1)
[2016-12-05] MEDS: ATORVASTATIN 80 MG TAB PO SCH (22:55)
[2016-12-06] VITALS (20 sets, daily range): BP systolic 95–169; BP diastolic 55–80; PULSE 54–88; RESP 10–21; TEMP 98.4–98.8; O2SAT 96–100
[2016-12-06] MEDS ORDERED: TERBUTALINE INJ 1 MG/ML AMP SQ PRN (02:15)
[2016-12-06] MEDS: NOREPINEPHRINE-DEXTROSE DRIP 250 ML IV PRN (02:24)
[2016-12-06] MEDS: HEPARIN-D5W 25,000 U/250 ML 250 ML IV PRN ×2 (02:26→22:32)
[2016-12-06 02:54] LABS: AUTOMATED NEUTROPHIL # 9.8 TH/MM3 (1.8-7.7); BASOPHIL # 0.1 TH/MM3 (0-0.2); BASOPHIL % 0.4 % (0.0-2.0); EOSINOPHIL # 0.1 TH/MM3 (0-0.4); EOSINOPHIL % 0.8 % (0.0-4.0); HEMATOCRIT 31.6 % (35.0-46.0); HEMO FLAGS DIFF FINAL; LYMPH % 20.5 % (9.0-44.0); LYMPHOCYTE # 2.8 TH/MM3 (1.0-4.8); MEAN CELL VOLUME 87.5 FL (80.0-100.0); MEAN CORPUSCULAR HEMOGLOBIN 28.2 PG (27.0-34.0); MEAN CORPUSCULAR HGB CONC 32.2 % (32.0-36.0); MONO % 6.8 % (0.0-8.0); NEUT % 71.5 % (16.0-70.0); PLATELET COUNT 241 TH/MM3 (150-450); RED BLOOD COUNT 3.61 MIL/MM3 (4.00-5.30); RED CELL DISTRIBUTION WIDTH 15.6 % (11.6-17.2); WHITE BLOOD COUNT 13.7 TH/MM3 (4.0-11.0)
[2016-12-06] MEDS: SODIUM CHLOR 0.9% 1000 ML INJ 1,000 ML IV SCH ×3 (03:00→22:33)
[2016-12-06 03:22] LABS: INTERNATIONAL NORMALIZED RATIO 1.1 RATIO; PROTHROMBIN TIME - PATIENT 11.7 SEC (9.8-11.6)
[2016-12-06 03:29] LABS: ALKALINE PHOSPHATASE 135 U/L (45-117); ALT (GPT) 46 U/L (10-53); ANION GAP 4 MEQ/L (5-15); AST (GOT) 12 U/L (15-37); BICARBONATE 26.6 MEQ/L (21.0-32.0); BLOOD UREA NITROGEN 21 MG/DL (7-18); CHLORIDE 113 MEQ/L (98-107); GLOMERULAR FILTRATION RATE 56 ML/MIN (>89); MAGNESIUM 2.1 MG/DL (1.5-2.5); SODIUM (NA) 144 MEQ/L (136-145); TOTAL BILIRUBIN ADULT 0.2 MG/DL (0.2-1.0)
[2016-12-06 03:30] LABS: CREATINE KINASE 28 U/L (26-192)
[2016-12-06 03:33] LABS: APTT (PATIENT) 127.7 SEC (24.3-30.1)
[2016-12-06] MEDS: INSULIN ASPART SUPPLEMENTAL SCALE SQ SCH ×6 (04:00→20:00)
[2016-12-06] MEDS: PROPOFOL 1000 MG/100 ML IV PRN ×2 (04:02→07:20)
[2016-12-06] MEDS: FAMOTIDINE 20 MG/2 ML VIAL IV PUSH SCH (05:00)
[2016-12-06] MEDS: NYSTATIN 100,000 U/GM OINT 15 GM TUBE TOPICAL SCH ×3 (05:43→22:00)
[2016-12-06 06:11] LABS: APTT (PATIENT) 39.6 SEC (24.3-30.1)
[2016-12-06] MEDS: CHLORHEXIDINE 0.12% (ORAL KIT) 15 ML CUP MT SCH ×2 (08:00→20:00)
[2016-12-06] MEDS: DEXAMETHASONE SOD PHOS 4 MG/ML VIAL IV PUSH SCH ×4 (09:00→22:33)
--- NOTE | 2016-12-06 11:09 | HHI.CCPN ---
Subjective Remarks/Hospital Course 51-year-old female with past medical history of coronary artery disease with stents, hypertension, diabetes, morbid obesity, PAD status post left BKA, CKD who originally arrived at [facility] emergency department on 12/01/16 with a one-day history of left lower quadrant pain. She had previously had a CT abdomen and pelvis with IV contrast at [facility] that was reportedly negative. On the CT abdomen and pelvis that was obtained at [facility] had residual contrast in the left ureter. There was mild left hydrouretero-hydronephrosis. No ureteral stone was visible. Urology has evaluated and felt that this may represent a small ureteral stone which would likely pass spontaneously versus a UVJ stricture. Renogram was negative for obstruction on 12/04 and she was cleared for d/c by urology. Creatinine on admission was 1.73 and had down trended to 1.36. She was afebrile and urinalysis was negative for evidence of infection. [facility] responded to CODE BLUE. RN states that patient had gotten up with the tech to go to the bathroom and when she returned to the bed she began complaining of sudden onset of shortness of breath. She reportedly did not mention chest pain. She then became unresponsive and was in asystolic cardiac arrest and CPR was initiated. She had no IV access as multiple nurses had attempted to place a peripheral IV access prior to the arrest. She was intubated and had ROSC after 6 minutes. Glucose was greater than 200. She did not receive any ACLS meds due to lack of IV access despite ongoing attempts by nursing to place PIV. She obtained ROSC before intubation. She is in sinus rhythm in the 70s and hypertensive. CVL was placed. Subjective 12/06: Afebrile. Currently resting in bed in no acute distress. Negative MRI/ MRA brain yesterday. Evaluated by cardiology. They believe this is pulmonary relation. We'll CT her neck today. No Cuff leak on ET tube today. Objective Vital Signs Date Time Temp Pulse Resp B/P (MAP) Pulse Ox O2 Delivery O2 Flow Rate FiO2 12/06/16 10:30 40 12/06/16 08:00 98.7 88 21 148/70 (96) 99 12/05/16 19:00 Mechanical Ventilator Intake and Output 12/06/16 12/06/16 12/07/16 08:00 16:00 00:00 Output Total 1250 ml Balance -1250 ml Result Diagram: 12/06/16 0240 12/06/16 0240 Other Results Microbiology Date/Time Source Procedure Growth Status 12/05/16 02:32 Blood Peripheral Aerobic Blood Culture - Preliminary NO GROWTH IN 1 DAY Resulted 12/05/16 02:32 Blood Peripheral Anaerobic Blood Culture - Preliminary NO GROWTH IN 1 DAY Resulted 12/06/16 02:40 Sputum Endotracheal Gram Stain Pending Received 12/06/16 02:40 Sputum Endotracheal Sputum Culture Pending Received Imaging Last Impressions Upper Extremity Ultrasound 12/05/16 Signed Impressions: Service Date/Time: Monday, December 05, 2016 16:07 - CONCLUSION: No evidence of superficial or deep venous thrombosis. Suboptimal visualization of the right subclavian vein do to central line. Jono Jose MD Neck Magnetic Resonance Angiography 12/05/16 Signed Impressions: Service Date/Time: Monday, December 05, 2016 09:06 - CONCLUSION: 1. Left carotid: 2. There is mild narrowing at the origin of the left internal carotid this is estimated to be in the range of 20-30%% by NASCET criteria. 3. 4. Right carotid: 5. There is no hemodynamically significant carotid artery stenosis. 6. Both vertebral arteries are widely patent. Gus Iverson MD Lower Extremity Ultrasound 12/05/16 Signed Impressions: Service Date/Time: Monday, December 05, 2016 08:08 - CONCLUSION: 1. No sonographic evidence for lower extremity DVT. Pierce Avendano MD Liver Ultrasound 12/05/16 Signed Impressions: Service Date/Time: Monday, December 05, 2016 07:57 - CONCLUSION: 1. Hepatomegaly with diffusely increased hepatic echogenicity consistent with hepatic steatosis versus medical liver disease. 2. Trace free fluid along the inferior hepatic margin. 3. Status post cholecystectomy with normal caliber common bile duct. Pierce Avendano MD Head Magnetic Resonance Angiography 12/05/16 Signed Impressions: Service Date/Time: Monday, December 05, 2016 09:06 - CONCLUSION: Normal examination. No evidence of aneurysm, AVM, vasculopathy or stenosis. Jono Jose MD Chest X-Ray 12/05/16 Signed Impressions: Service Date/Time: Monday, December 05, 2016 00:09 - CONCLUSION: Satisfactory line and tube positioning. No pneumothorax Freddy Montez MD CT Angiography 12/05/16 Signed Impressions: Service Date/Time: Monday, December 05, 2016 05:15 - CONCLUSION: No evidence of pulmonary embolism Freddy Montez MD Brain MRI 12/05/16 Signed Impressions: Service Date/Time: Monday, December 05, 2016 09:06 - CONCLUSION: No acute disease. No evidence of acute infarct, hemorrhage, mass or edema. Jono Jose MD Renal Scan w/Medication NM 12/04/16 Signed Impressions: Service Date/Time: Sunday, December 04, 2016 08:59 - CONCLUSION: There is no evidence for obstruction. John Iverson MD FACR Abdomen/Pelvis CT 12/01/1608 Signed Impressions: Service Date/Time: Thursday, December 01, 2016 09:43 - CONCLUSION: 1. Striated left nephrogram from recent prior contrast administration with associated mild left hydroureteronephrosis extending to the UVJ. A definite radiopaque ureteral calculus is not visualized although a very small calculus can be obscured by the dense contrast in the left ureter. Findings are most consistent with at least a partial left UVJ obstruction although differential consideration includes left sided pyelonephritis. Clinical correlation is recommended. Pierce Avendano MD Objective Remarks GENERAL: 51-year-old female who is orotracheally intubated. SKIN: Warm and dry. There is skin breakdown under right breast but no necrosis or evidence of infection per Dr. Perez examination 12/05. I did not examine.. Tinea around the umbilicus HEAD: Atraumatic. Normocephalic. EYES: Pupils equal and round, 2mm and reactive bilaterally. . No scleral icterus. No injection or drainage. ENT: No nasal bleeding or discharge. Mucous membranes pink and moist. NECK: Trachea midline. Obese. No thyromegaly CARDIOVASCULAR: RRR. S1, S2. No S4. Without murmurs RESPIRATORY: Diminished but essentially clear without wheezes rales or rhonchi GASTROINTESTINAL: Abdomen soft, non-tender, obese. Hypoactive bowel sounds are appreciated : Levy inserted and light myrna urine output. MSK: L leg s/p BKA with well healed incision scar. 1+ pitting pitting edema of all extremities. NEUROLOGICAL: Cranial nerves II through XII grossly intact. Strength is equal symmetric. Normal sensation. A/P Problem List: (1) Peripheral neuropathy ICD Code: G62.9 - Polyneuropathy, unspecified Status: Chronic (2) Cardiac arrest ICD Code: I46.9 - Cardiac arrest, cause unspecified Status: Acute (3) Leukocytosis ICD Code: D72.829 - Elevated white blood cell count, unspecified Status: Acute (4) CKD (chronic kidney disease) ICD Code: N18.9 - Chronic kidney disease, unspecified Status: Chronic (5) HTN (hypertension) ICD Code: I10 - Essential (primary) hypertension Status: Chronic (6) Transaminitis ICD Code: R74.0 - Nonspecific elevation of levels of transaminase and lactic acid dehydrogenase [LDH] Status: Acute (7) Obesity ICD Code: E66.9 - Obesity, unspecified Status: Chronic (8) Diabetes mellitus ICD Code: E11.9 - Diabetes mellitus Status: Chronic (9) Hydroureter ICD Code: N13.4 - Hydroureter Status: Acute (10) CAD (coronary artery disease) ICD Code: I25.10 - Atherosclerotic heart disease of [place] coronary artery without angina pectoris (11) Gastroparesis ICD Code: K31.84 - Gastroparesis Status: Chronic (12) Respiratory failure, acute ICD Code: J96.00 - Acute respiratory failure, unspecified whether with hypoxia or hypercapnia Status: Acute (13) Hyperlipidemia ICD Code: E78.5 - Hyperlipidemia, unspecified Status: Chronic Assessment and Plan NEURO/PSYCH: Peripheral neuropathy/right lower extremity Midazolam/fentanyl drips for sedation/analgesia while intubated RASS target -2 Daily sedation vacation Follow commands Previously on lorazepam 0.5 mill grams a needed for anxiety RESP: Acute respiratory failure Probable DAE/pickwickian ACV 16/500/5/40 Ventilator bundle Albuterol/ipratropium aerosols every 6 hours with albuterol aerosols every 2 hours. Dyspnea Spontaneous breathing trials as clinically indicated Very low tidal volumes. We'll check CT neck rule out obstructive process. CXR - mild cardiomegaly. No infiltrate. CV: Asystolic cardiac arrest Coronary artery disease with prior stents ~ 2 years ago. History of hypertension Hyperlipidemia Peripheral arterial disease s/p L BKA Troponins negative Echocardiogram pending Ticagrelor 90 milligrams bid and ASA 81 daily. Will hold ASA while on therapeutic anticoagulation. Continue Atorvastatin 80 mg po qhs for now, continue to monitor transaminase and hold if indicated. 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 Believes this is pulmonary nature. Have signed off Holding furosemide 40 mg daily marginal renal status. Likely restart in a.m. Holding carvedilol 3.125 milligrams twice a day in light of borderline blood pressures GI: Morbid obesity Gastroparesis Elevated transaminases History of hepatitis A Patient is not chronically on metoclopramide for gastroparesis because they "didn't work". Place OGT to [facility]. - Start tube feeding with Glucerna 1.5 goal 60 cc an hour Lansoprazole 30 milligrams daily for GI prophylaxis Docusate sodium 100 mg twice a day for bowel regimen FEN/RENAL: Acute kidney injury with unknown baseline creatinine CKD unknown stage Nephrolithiasis Left UJV obstruction with mild hydronephrosis Insert levy catheter for close monitoring of UOP s/p cardiac arrest. Monitor electrolytes and replace as clinically indicated. Mild transaminase elevation. Follow-up right upper quadrant ultrasound - revealed hepatic steatosis. Status post cholecystectomy. Continue 0.9 NaCl @ 100 ml/hr. Nuclear medicine renal scan within normal limits 12/04 ID: Urinalysis was obtained and demonstrates no evidence of UTI. Chest x-ray shows no infiltrate. Monitor for signs and symptoms of infection HEME: Leukocytosis Normocytic anemia History of factor V Leiden deficiency Monitor CBC daily. Follow trends. No indication for transfusion of blood products at this time We'll continue coags with heparin drip while immobile/increased risk for thrombus. ENDO: Diabetes mellitus Has been on low-dose insulin sliding scale before meals at bedtime. Previously on detemir 60 mg daily. We'll start 5 mill grams twice a day with sliding scale insulin/moderate every 4 hours PROPH: Initiating heparin drip. Provide DVT prophylaxis lansoprazole 30 milligrams daily for stress ulcer prophylaxis ACCESS: Right IJ central venous line placed 11/1016 #2 Family updated at bedside. Patient is full code. Level III follow-up Problem Qualifiers (1) CKD (chronic kidney disease): Qualified Codes: N18.9 - Chronic kidney disease, unspecified (2) HTN (hypertension): Qualified Codes: I10 - Essential (primary) hypertension (3) Obesity: (4) Diabetes mellitus: Qualified Codes: E11.52 - Type 2 diabetes mellitus with diabetic peripheral angiopathy with gangrene; Z79.4 - manager long term care (current) use of insulin Mina Chavis MD Dec 06, 2016 11:09
--- NOTE | 2016-12-06 11:33 | PD.CARD.PN ---
Subjective Subjective Remarks Arousable, O2 sat 97% on FIO2 40, BP low due to propofol. No CP, EKG unchanged, Echo pending Objective Medications GENERAL: alert, SKIN: Warm and dry. HEAD: Normocephalic. EYES: No scleral icterus. No injection or drainage. NECK: Supple, trachea midline. No JVD or lymphadenopathy. CARDIOVASCULAR: Regular rate and rhythm without murmurs, gallops, or rubs. RESPIRATORY: Breath sounds equal bilaterally. No accessory muscle use. GASTROINTESTINAL: Abdomen soft, non-tender, nondistended. MUSCULOSKELETAL: No cyanosis, or edema. BACK: Nontender without obvious deformity. No CVA tenderness. Vital Signs / I&O Vital Signs Date Time Temp Pulse Resp B/P (MAP) Pulse Ox O2 Delivery O2 Flow Rate FiO2 12/06/16 10:30 40 12/06/16 08:00 98.7 88 21 148/70 (96) 99 12/06/16 08:00 40 12/06/16 08:00 88 12/06/16 07:55 40 12/06/16 07:51 100 40 12/06/16 07:20 66 124/61 12/06/16 06:00 65 12/06/16 04:05 100 40 12/06/16 04:00 40 12/06/16 04:00 65 12/06/16 03:00 98.8 70 14 169/80 (109) 100 12/06/16 02:24 68 79/48 12/06/16 02:00 58 12/06/16 01:05 98 40 12/06/16 00:00 64 12/06/16 00:00 40 12/05/16 23:00 99.8 74 14 125/64 (84) 100 12/05/16 22:00 74 12/05/16 21:45 100 40 12/05/16 20:00 78 12/05/16 20:00 40 12/05/16 19:00 72 12/05/16 19:00 99.8 72 14 111/57 (75) 99 12/05/16 19:00 99 Mechanical Ventilator 40 12/05/16 19:00 40 12/05/16 17:09 100 40 12/05/16 16:00 89 12/05/16 16:00 98.8 89 19 170/81 (110) 100 12/05/16 15:35 40 12/05/16 13:37 100 50 12/05/16 12:00 58 12/05/16 12:00 98.5 58 16 150/72 (98) 100 I/O 12/05/16 12/05/16 12/05/16 12/06/16 12/06/16 12/06/16 07:00 15:00 23:00 07:00 15:00 23:00 Intake Total 1426 ml Output Total 1100 ml 3125 ml 1250 ml Balance -1100 ml -1699 ml -1250 ml IV Total 1426 ml Output Urine Total 1100 ml 3125 ml 1250 ml Gastric Drainage Total 0 ml # Bowel Movements 0 0 0 Laboratory Laboratory Tests Test 12/05/16 11:30 12/05/16 12:28 12/05/16 21:15 12/06/16 02:40 Blood Urea Nitrogen 28 MG/DL 21 MG/DL Creatinine 1.15 MG/DL 1.04 MG/DL Random Glucose 210 MG/DL 164 MG/DL Calcium Level 8.6 MG/DL 7.7 MG/DL Sodium Level 142 MEQ/L 144 MEQ/L Potassium Level 4.3 MEQ/L 4.0 MEQ/L Chloride Level 111 MEQ/L 113 MEQ/L Carbon Dioxide Level 22.7 MEQ/L 26.6 MEQ/L Anion Gap 8 MEQ/L 4 MEQ/L Estimat Glomerular Filtration Rate 50 ML/MIN 56 ML/MIN Total Creatine Kinase 42 U/L 28 U/L Troponin I 0.02 NG/ML 0.02 NG/ML Human Chorionic Gonadotropin, Quant 2 MIU/ML White Blood Count 10.6 TH/MM3 13.7 TH/MM3 Red Blood Count 3.82 MIL/MM3 3.61 MIL/MM3 Hemoglobin 10.9 GM/DL 10.2 GM/DL Hematocrit 33.4 % 31.6 % Mean Corpuscular Volume 87.3 FL 87.5 FL Mean Corpuscular Hemoglobin 28.5 PG 28.2 PG Mean Corpuscular Hemoglobin Concent 32.7 % 32.2 % Red Cell Distribution Width 15.2 % 15.6 % Platelet Count 214 TH/MM3 241 TH/MM3 Mean Platelet Volume 7.7 FL 7.5 FL Neutrophils (%) (Auto) 74.4 % 71.5 % Lymphocytes (%) (Auto) 17.3 % 20.5 % Monocytes (%) (Auto) 7.2 % 6.8 % Eosinophils (%) (Auto) 0.8 % 0.8 % Basophils (%) (Auto) 0.3 % 0.4 % Neutrophils # (Auto) 7.9 TH/MM3 9.8 TH/MM3 Lymphocytes # (Auto) 1.8 TH/MM3 2.8 TH/MM3 Monocytes # (Auto) 0.8 TH/MM3 0.9 TH/MM3 Eosinophils # (Auto) 0.1 TH/MM3 0.1 TH/MM3 Basophils # (Auto) 0.0 TH/MM3 0.1 TH/MM3 CBC Comment DIFF FINAL DIFF FINAL Differential Comment Activated Partial Thromboplast Time 38.4 SEC 127.7 SEC Prothrombin Time 11.7 SEC Prothromb Time International Ratio 1.1 RATIO Fibrinogen 486 mg/dL Total Protein 5.4 GM/DL Albumin 2.2 GM/DL Phosphorus Level 2.6 MG/DL Magnesium Level 2.1 MG/DL Alkaline Phosphatase 135 U/L Aspartate Amino Transf (AST/SGOT) 12 U/L Alanine Aminotransferase (ALT/SGPT) 46 U/L Total Bilirubin 0.2 MG/DL Lactic Acid Level 0.9 mmol/L Lipase 80 U/L Thyroid Stimulating Hormone 3rd Gen 0.358 uIU/ML Test 12/06/16 05:30 Activated Partial Thromboplast Time 39.6 SEC Assessment and Plan Problem List: (1) Respiratory failure ICD Codes: J96.90 - Respiratory failure Status: Acute Plan: etiology unclear, no evidence of NH or arrhythmia, echo is pending, EKG only showed nonspecific ST T wave changes. Will sign off . Please call DR SANTOS for further need of cardiology consultations (2) Diabetic neuropathy ICD Codes: E11.40 - Diabetic neuropathy Status: Chronic (3) Ureteral colic ICD Codes: N23 - Unspecified renal colic Status: Acute (4) Diabetes mellitus ICD Codes: E11.9 - Diabetes mellitus Status: Chronic (5) Cardiac arrest ICD Codes: I46.9 - Cardiac arrest, cause unspecified Status: Acute (6) Peripheral neuropathy ICD Codes: G62.9 - Polyneuropathy, unspecified Status: Chronic (7) CKD (chronic kidney disease) ICD Codes: N18.9 - Chronic kidney disease, unspecified Status: Chronic Problem Qualifiers (1) Diabetes mellitus: Qualified Codes: E11.52 - Type 2 diabetes mellitus with diabetic peripheral angiopathy with gangrene; Z79.4 - rn long term care (current) use of insulin (2) CKD (chronic kidney disease): Qualified Codes: N18.9 - Chronic kidney disease, unspecified Jonathan Guidry MD Dec 06, 2016 11:33
[2016-12-06] MEDS: MIDAZOLAM 100 MG/100 ML INJ 100 ML IV PRN (11:35)
[2016-12-06] MEDS: fentaNYL DRIP 250 ML IV PRN (11:35)
[2016-12-06] MEDS ORDERED: RESP: ALBUTEROL 2.5 MG/3 ML NEB (PRN) NEB (12:15)
[2016-12-06] MEDS ORDERED: SENNOSIDES SYRUP 8.8 MG/5 ML CUP PO ONE (12:30)
[2016-12-06 12:40] LABS: APTT (PATIENT) 44.3 SEC (24.3-30.1)
[2016-12-06] MEDS: ARTIFICIAL TEARS OPTH SOLN 15 ML BTL EACH EYE SCH ×2 (13:41→21:24)
[2016-12-06] MEDS: RESP: ALBUTEROL 2.5 MG/IPRATROPIUM 0.5 MG NEB (SCH) NEB ×2 (16:04→20:39)
--- NOTE | 2016-12-06 16:39 | RADRPT ---
EXAM DATE/TIME: 12/06/2016 14:44 [facility] COMPARISON: No previous studies available for comparison. INDICATIONS : Neck swelling for one day. RADIATION DOSE: 21.92 CTDIvol (mGy) MEDICAL HISTORY : Cardiovascular disease. Diabetes mellitus type 2. Hepatitis A. SURGICAL HISTORY : Hysterectomy. ENCOUNTER: Initial ACUITY: 1 day PAIN SCORE: Non-responsive LOCATION: Bilateral neck region. TECHNIQUE: Volumetric scanning of the neck was performed. Using automated exposure control and adjustment of th e mA and/or kV according to patient size, radiation dose was kept as low as reasonably achievable to obtain optimal diagnostic quality images. DICOM format image data is available electronically for re view and comparison. FINDINGS: NASOPHARYNX: The nasopharyngeal airway has a normal configuration. No mucosal thickening or mass is seen. OROPHARYNX: The intrinsic muscles of the tongue are symmetric. The tonsillar pillars are intact. The prevertebr al soft tissues are not thickened. LARYNX: The supraglottic, glottic, and infraglottic structures are intact. PARAPHARYNGEAL: The parapharyngeal space is intact. SALIVARY GLANDS: The parotid and submandibular glands are intact. LYMPH NODES: Nonspecific slightly enlarged group 2 lymph nodes are identified THYROID: Homogeneous enhancement without evidence of nodule. BONES: Unremarkable. CONCLUSION: 1. Unremarkable CT scan of the neck. No masses are identified. Nonspecific adenopathy Marquez Moser MD on December 06, 2016 at 15:44 Board Certified Radiologist. This report was verified electronically.
--- NOTE | 2016-12-06 17:21 | ECHRPT ---
Indication: Shortness of breath CONCLUSIONS The left ventricular systolic function is normal with an estimated ejection fraction in the range of 60-65%. Wall thickness is measured at the upper limits of normal. Normal left ventricular size. [id number] mitral valve regurgitation. Mild thickening of the aortic valve leaflets. BP: 135 / 83 HR: 58 Rhythm: Sinus MEASUREMENTS (Male / Female) Normal Values Technical Quality:Poor 2D ECHO LV Diastolic Diameter PLAX 4.7 cm 4.2 - 5.9 / 3.9 - 5.3 cm LV Systolic Diameter PLAX 3.4 cm IVS Diastolic Thickness 1.3 cm 0.6 - 1.0 / 0.6 - 0.9 cm LVPW Diastolic Thickness 1.3 cm 0.6 - 1.0 / 0.6 - 0.9 cm LV Relative Wall Thickness 0.5 LVOT Diameter 2.2 cm M-MODE Aortic Root Diameter MM 2.6 cm LA Systolic Diameter MM 3.1 cm LA Ao Ratio MM 1.2 AV Cusp Separation MM 1.7 cm DOPPLER AV Peak Velocity 151.0 cm/s AV Peak Gradient 9.1 mmHg LVOT Peak Velocity 102.0 cm/s LVOT Peak Gradient 4.2 mmHg AV Area Cont Eq pk 2.6 cm MR Peak Velocity 227.0 cm/s MR Peak Gradient 20.6 mmHg Mitral E Point Velocity 111.0 cm/s Mitral A Point Velocity 83.9 cm/s Mitral E to A Ratio 1.3 LV E' Lateral Velocity 10.6 cm/s Mitral E to LV E' Lateral Ratio 10.5 LV E' Septal Velocity 7.6 cm/s Mitral E to LV E' Septal Ratio 14.6 PV Peak Velocity 132.0 cm/s PV Peak Gradient 7.0 mmHg FINDINGS LEFT VENTRICLE The left ventricular systolic function is normal with an estimated ejection fraction in the range of 60-65%. Wall thickness is measured at the upper limits of normal. Normal left ventricular size. RIGHT VENTRICLE Normal right ventricular size and systolic function. LEFT ATRIUM The left atrial size is normal. RIGHT ATRIUM The right atrial size is normal. ATRIAL SEPTUM Normal atrial septal thickness without atrial level shunting by limited color doppler interrogation. AORTA The aortic root and proximal ascending aorta are normal in size on limited imaging. MITRAL VALVE [id number] mitral valve regurgitation. AORTIC VALVE Mild thickening of the aortic valve leaflets. TRICUSPID VALVE Structurally normal tricuspid valve. No tricuspid valve stenosis or regurgitation. PULMONARY VALVE The pulmonary valve is not well visualized. VESSELS The inferior vena cava is normal in size. PERICARDIUM No pericardial effusion. Adelaida Valle MD, FACC (Electronically Signed) Final Date:06 December 2016 17:20
[2016-12-06] MEDS: TICAGRELOR 90 MG TAB PO SCH (21:00)
[2016-12-06] MEDS ORDERED: DOCUSATE SODIUM 100 MG/10 ML UDC PO SCH (21:00)
[2016-12-06] MEDS ORDERED: INSULIN DETEMIR 100 UNITS/ML VIAL SQ SCH (21:00)
[2016-12-06] MEDS: ATORVASTATIN 80 MG TAB PO SCH (21:24)
[2016-12-06] MEDS: DOCUSATE SODIUM 100 MG/10 ML UDC PO SCH (21:24)
[2016-12-06] MEDS: INSULIN DETEMIR 100 UNITS/ML VIAL SQ SCH (21:24)
--- NOTE | 2016-12-06 23:40 | EKG ---
Date Performed: 12/05/2016 Time Performed: 21:17:44 PTAGE: 51 years EKG: Sinus rhythm ST/T WAVE CHANGES ANTERIORLY AND INFERIORLY, POSSIBLE ISCHEMIC IN NATURE BORDERLINE ECG PREVIOUS TRACING : 12/05/2016 00.18 Compared to prior tracing no significant change DOCTOR: Scott Cruz Interpretating Date/Time 12/06/2016 23:38:37
[2016-12-07] VITALS (19 sets, daily range): BP systolic 106–156; BP diastolic 57–72; PULSE 54–92; RESP 9–12; TEMP 98–98.6; O2SAT 96–99
[2016-12-07] MEDS: RESP: ALBUTEROL 2.5 MG/IPRATROPIUM 0.5 MG NEB (SCH) NEB ×4 (01:00→20:38)
[2016-12-07] MEDS: INSULIN ASPART SUPPLEMENTAL SCALE SQ SCH ×3 (04:00→08:00)
[2016-12-07 05:12] LABS: AUTOMATED NEUTROPHIL # 8.7 TH/MM3 (1.8-7.7); BASOPHIL % 0.5 % (0.0-2.0); HEMATOCRIT 30.6 % (35.0-46.0); HEMO FLAGS DIFF FINAL; LYMPH % 7.6 % (9.0-44.0); LYMPHOCYTE # 0.7 TH/MM3 (1.0-4.8); MEAN CELL VOLUME 87.8 FL (80.0-100.0); MEAN CORPUSCULAR HEMOGLOBIN 28.8 PG (27.0-34.0); MEAN CORPUSCULAR HGB CONC 32.8 % (32.0-36.0); MONO % 2.7 % (0.0-8.0); NEUT % 89.2 % (16.0-70.0); PLATELET COUNT 249 TH/MM3 (150-450); RED BLOOD COUNT 3.48 MIL/MM3 (4.00-5.30); RED CELL DISTRIBUTION WIDTH 15.3 % (11.6-17.2); WHITE BLOOD COUNT 9.8 TH/MM3 (4.0-11.0)
[2016-12-07 05:31] LABS: APTT (PATIENT) 66.4 SEC (24.3-30.1)
[2016-12-07 05:42] LABS: ANION GAP 5 MEQ/L (5-15); AST (GOT) 7 U/L (15-37); BICARBONATE 24.9 MEQ/L (21.0-32.0); BLOOD UREA NITROGEN 17 MG/DL (7-18); CHLORIDE 114 MEQ/L (98-107); GLOMERULAR FILTRATION RATE 68 ML/MIN (>89); MAGNESIUM 2.1 MG/DL (1.5-2.5); POTASSIUM 4.7 MEQ/L (3.5-5.1); SODIUM (NA) 144 MEQ/L (136-145)
[2016-12-07 05:45] LABS: ALKALINE PHOSPHATASE 118 U/L (45-117); ALT (GPT) 35 U/L (10-53); TOTAL BILIRUBIN ADULT 0.2 MG/DL (0.2-1.0)
[2016-12-07] MEDS: ARTIFICIAL TEARS OPTH SOLN 15 ML BTL EACH EYE SCH ×3 (06:00→20:41)
[2016-12-07] MEDS: NYSTATIN 100,000 U/GM OINT 15 GM TUBE TOPICAL SCH ×3 (06:00→20:41)
--- NOTE | 2016-12-07 06:13 | RADRPT ---
EXAM DATE/TIME: 12/07/2016 04:55 [facility] COMPARISON: CT PULMONARY ANGIOGRAM, December 05, 2016, 5:15. CHEST SINGLE AP, December 05, 2016, 0:09. INDICATIONS : Shortness of breath MEDICAL HISTORY : Hypertension. Diabetes mellitus type 2. Coronary artery disease. SURGICAL HISTORY : Coronary artery stent. Appendectomy. Cholecystectomy. ENCOUNTER: Subsequent ACUITY: 3 days PAIN SCORE: Non-responsive. LOCATION: Bilateral chest FINDINGS: Endotracheal tube, nasogastric tube and right central line are stable and satisfactory position. Bila teral basilar pleural-parenchymal opacities have developed. Heart remains mildly enlarged. Ectatic fo r rotation, mediastinal contours are grossly unchanged. CONCLUSION: Worsening bibasilar pleuroparenchymal opacities. Freddy Montez MD on December 07, 2016 at 6:11 Board Certified Radiologist. This report was verified electronically.
[2016-12-07] MEDS: DEXAMETHASONE SOD PHOS 4 MG/ML VIAL IV PUSH SCH ×4 (06:47→23:06)
[2016-12-07] MEDS: fentaNYL DRIP 250 ML IV PRN (06:58)
[2016-12-07] MEDS: CHLORHEXIDINE 0.12% (ORAL KIT) 15 ML CUP MT SCH ×2 (07:52→20:40)
[2016-12-07] MEDS: DOCUSATE SODIUM 100 MG/10 ML UDC PO SCH ×2 (07:52→20:40)
[2016-12-07] MEDS: LANSOPRAZOLE SOLUTAB 30 MG TAB NG SCH (07:53)
[2016-12-07] MEDS: TICAGRELOR 90 MG TAB PO SCH ×2 (07:53→20:40)
[2016-12-07] MEDS: INSULIN DETEMIR 100 UNITS/ML VIAL SQ SCH ×2 (07:53→20:32)
[2016-12-07] MEDS ORDERED: SENNOSIDES SYRUP 8.8 MG/5 ML CUP PO SCH (09:00)
--- NOTE | 2016-12-07 09:16 | HHI.CCPN ---
Subjective Remarks/Hospital Course 51-year-old female with past medical history of coronary artery disease with stents, hypertension, diabetes, morbid obesity, PAD status post left BKA, CKD who originally arrived at [facility] emergency department on 12/01/16 with a one-day history of left lower quadrant pain. She had previously had a CT abdomen and pelvis with IV contrast at [facility] that was reportedly negative. On the CT abdomen and pelvis that was obtained at [place] had residual contrast in the left ureter. There was mild left hydrouretero-hydronephrosis. No ureteral stone was visible. Urology has evaluated and felt that this may represent a small ureteral stone which would likely pass spontaneously versus a UVJ stricture. Renogram was negative for obstruction on 12/04 and she was cleared for d/c by urology. Creatinine on admission was 1.73 and had down trended to 1.36. She was afebrile and urinalysis was negative for evidence of infection. [facility] responded to CODE BLUE. RN states that patient had gotten up with the tech to go to the bathroom and when she returned to the bed she began complaining of sudden onset of shortness of breath. She reportedly did not mention chest pain. She then became unresponsive and was in asystolic cardiac arrest and CPR was initiated. She had no IV access as multiple nurses had attempted to place a peripheral IV access prior to the arrest. She was intubated and had ROSC after 6 minutes. Glucose was greater than 200. She did not receive any ACLS meds due to lack of IV access despite ongoing attempts by nursing to place PIV. She obtained ROSC before intubation. She is in sinus rhythm in the 70s and hypertensive. CVL was placed. 12/06: Afebrile. Currently resting in bed in no acute distress. Negative MRI/ MRA brain yesterday. Evaluated by cardiology. They believe this is pulmonary relation. We'll CT her neck today. No Cuff leak on ET tube today. Subjective 12/07: Afebrile. Currently a PSV trial / at 40%. Awake and following commands. CT neck normal. Echocardiogram EF 60-65%. Will attempt extubation today at 10:30 with CMAC at bedside if no cuff leak after receiving dexamethasone 1 day and passes mechanical ventilation weaning parameters. no bowel movement 3 days Objective Vital Signs Date Time Temp Pulse Resp B/P (MAP) Pulse Ox O2 Delivery O2 Flow Rate FiO2 12/07/16 08:38 40 12/07/16 08:38 99 12/07/16 06:00 54 12/07/16 03:00 98.4 10 106/57 (73) 12/06/16 19:00 Mechanical Ventilator Intake and Output 12/07/16 12/07/16 12/08/16 08:00 16:00 00:00 Output Total 750 ml Balance -750 ml Result Diagram: 12/07/16 0450 12/07/16 0450 Other Results Microbiology Date/Time Source Procedure Growth Status 12/05/16 02:32 Blood Peripheral Aerobic Blood Culture - Preliminary NO GROWTH IN 1 DAY Resulted 12/05/16 02:32 Blood Peripheral Anaerobic Blood Culture - Preliminary NO GROWTH IN 1 DAY Resulted 12/06/16 02:40 Sputum Endotracheal Gram Stain - Final Resulted 12/06/16 02:40 Sputum Endotracheal Sputum Culture Pending Resulted Imaging Last 72 hours Impressions Chest X-Ray 12/07/16 0600 Signed Impressions: Service Date/Time: November 04:55 - CONCLUSION: Worsening bibasilar pleuroparenchymal opacities. Freddy Montez MD Neck CT 12/06/16 0000 Signed Impressions: Service Date/Time: Tuesday, December 06, 2016 14:44 - CONCLUSION: 1. Unremarkable CT scan of the neck. No masses are identified. Nonspecific adenopathy Marquez Moser MD Upper Extremity Ultrasound 12/05/16 0000 Signed Impressions: Service Date/Time: Monday, December 05, 2016 16:07 - CONCLUSION: No evidence of superficial or deep venous thrombosis. Suboptimal visualization of the right subclavian vein do to central line. Jono Jose MD Neck Magnetic Resonance Angiography 12/05/16 0000 Signed Impressions: Service Date/Time: Monday, December 05, 2016 09:06 - CONCLUSION: 1. Left carotid: 2. There is mild narrowing at the origin of the left internal carotid this is estimated to be in the range of 20-30%% by NASCET criteria. 3. 4. Right carotid: 5. There is no hemodynamically significant carotid artery stenosis. 6. Both vertebral arteries are widely patent. Gus Iverson MD Lower Extremity Ultrasound 12/05/16 0000 Signed Impressions: Service Date/Time: Monday, December 05, 2016 08:08 - CONCLUSION: 1. No sonographic evidence for lower extremity DVT. Pierce Avendano MD Liver Ultrasound 12/05/16 Signed Impressions: Service Date/Time: Monday, December 05, 2016 07:57 - CONCLUSION: 1. Hepatomegaly with diffusely increased hepatic echogenicity consistent with hepatic steatosis versus medical liver disease. 2. Trace free fluid along the inferior hepatic margin. 3. Status post cholecystectomy with normal caliber common bile duct. Pierce Avendano MD Head Magnetic Resonance Angiography 12/05/16 Signed Impressions: Service Date/Time: Monday, December 05, 2016 09:06 - CONCLUSION: Normal examination. No evidence of aneurysm, AVM, vasculopathy or stenosis. Jono Jose MD Chest X-Ray 12/05/16 Signed Impressions: Service Date/Time: Monday, December 05, 2016 00:09 - CONCLUSION: Satisfactory line and tube positioning. No pneumothorax Freddy Montez MD CT Angiography 12/05/16 Signed Impressions: Service Date/Time: Monday, December 05, 2016 05:15 - CONCLUSION: No evidence of pulmonary embolism Freddy Montez MD Brain MRI 12/05/16 Signed Impressions: Service Date/Time: Monday, December 05, 2016 09:06 - CONCLUSION: No acute disease. No evidence of acute infarct, hemorrhage, mass or edema. Jono Jose MD Objective Remarks GENERAL: 51-year-old female who is orotracheally intubated. SKIN: Warm and dry. There is skin breakdown under right breast but no necrosis or evidence of infection per Dr. Perez examination 12/05. I did not examine.. Tinea around the umbilicus HEAD: Atraumatic. Normocephalic. EYES: Pupils equal and round, 2mm and reactive bilaterally. . No scleral icterus. No injection or drainage. ENT: No nasal bleeding or discharge. Mucous membranes pink and moist. NECK: Trachea midline. Obese. No thyromegaly CARDIOVASCULAR: RRR. S1, S2. No S4. Without murmurs RESPIRATORY: Diminished but essentially clear without wheezes rales or rhonchi GASTROINTESTINAL: Abdomen soft, non-tender, obese. Hypoactive bowel sounds are appreciated : Levy inserted and light myrna urine output. MSK: L leg s/p BKA with well healed incision scar. 1+ pitting pitting edema of all extremities. NEUROLOGICAL: Cranial nerves II through XII grossly intact. Strength is equal symmetric. Normal sensation. Vascular Central Line Catheter: Yes Assessment to: Continue Line: Central Venous Catheter Location: Internal, Jugular A/P Problem List: (1) Peripheral neuropathy ICD Code: G62.9 - Polyneuropathy, unspecified Status: Chronic (2) Cardiac arrest ICD Code: I46.9 - Cardiac arrest, cause unspecified Status: Acute (3) Leukocytosis ICD Code: D72.829 - Elevated white blood cell count, unspecified Status: Acute (4) CKD (chronic kidney disease) ICD Code: N18.9 - Chronic kidney disease, unspecified Status: Chronic (5) HTN (hypertension) ICD Code: I10 - Essential (primary) hypertension Status: Chronic (6) Transaminitis ICD Code: R74.0 - Nonspecific elevation of levels of transaminase and lactic acid dehydrogenase [LDH] Status: Acute (7) Obesity ICD Code: E66.9 - Obesity, unspecified Status: Chronic (8) Diabetes mellitus ICD Code: E11.9 - Diabetes mellitus Status: Chronic (9) Hydroureter ICD Code: N13.4 - Hydroureter Status: Acute (10) CAD (coronary artery disease) ICD Code: I25.10 - Atherosclerotic heart disease of [place] coronary artery without angina pectoris (11) Gastroparesis ICD Code: K31.84 - Gastroparesis Status: Chronic (12) Respiratory failure, acute ICD Code: J96.00 - Acute respiratory failure, unspecified whether with hypoxia or hypercapnia Status: Acute (13) Hyperlipidemia ICD Code: E78.5 - Hyperlipidemia, unspecified Status: Chronic Assessment and Plan NEURO/PSYCH: Peripheral neuropathy/right lower extremity Midazolam/fentanyl drips for sedation/analgesia while intubated RASS target -2 Daily sedation vacation Follow commands Previously on lorazepam 0.5 mill grams a needed for anxiety RESP: Acute respiratory failure Probable DAE/pickwickian ACV 16/500/5/40 Currently on PSV trial 8/5 at 40% Ventilator bundle Albuterol/ipratropium aerosols every 6 hours with albuterol aerosols every 2 hours. Dyspnea Spontaneous breathing trials as today. Improved tidal volumes. Early around 450. Was 280 yesterday minimal cough with history. Dexamethasone 4 mg every 6 hours [address] neck 12/06 no obstructive process CXR - mild cardiomegaly. Bilateral infiltrates CV: Asystolic cardiac arrest Coronary artery disease with prior stents ~ 2 years ago. History of hypertension Hyperlipidemia Peripheral arterial disease s/p L BKA Troponins negative Echocardiogram EF 60-65%. Ticagrelor 90 milligrams bid and ASA 81 daily. Will hold ASA while on therapeutic anticoagulation. Continue Atorvastatin 80 mg po qhs for now, continue to monitor transaminase and hold if indicated. Patients minute clerk for basic traffic is Dr. Tejada in [facility]. Believes this is pulmonary nature. Have signed off Holding furosemide 40 mg daily marginal renal status. Likely restart in a.m. Holding carvedilol 3.125 milligrams twice a day in light of borderline blood pressures GI: Morbid obesity Gastroparesis Elevated transaminases History of hepatitis A Patient is not chronically on metoclopramide for gastroparesis because they "didn't work". Place OGT to [facility]. - Start tube feeding with Glucerna 1.5 goal 60 cc an hour. Currently off Lansoprazole 30 milligrams daily for GI prophylaxis Docusate sodium 100 mg twice a day for bowel regimen FEN/RENAL: Acute kidney injury with unknown baseline creatinine CKD unknown stage Nephrolithiasis Left UJV obstruction with mild hydronephrosis Insert levy catheter for close monitoring of UOP s/p cardiac arrest. Monitor electrolytes and replace as clinically indicated. Mild transaminase elevation. Follow-up right upper quadrant ultrasound - revealed hepatic steatosis. Status post cholecystectomy. Continue 0.9 NaCl @ 100 ml/hr. Nuclear medicine renal scan within normal limits 12/04 ID: Urinalysis was obtained and demonstrates no evidence of UTI. Chest x-ray shows no infiltrate. Monitor for signs and symptoms of infection HEME: Leukocytosis Normocytic anemia History of factor V Leiden deficiency Monitor CBC daily. Follow trends. No indication for transfusion of blood products at this time We'll continue coags with heparin drip while immobile/increased risk for thrombus. ENDO: Diabetes mellitus Has been on low-dose insulin sliding scale before meals at bedtime. Previously on detemir 60 mg daily. We'll start 10 mill grams twice a day with sliding scale insulin/Novulin R every 4 hours PROPH: Initiating heparin drip. Provide DVT prophylaxis lansoprazole 30 milligrams daily for stress ulcer prophylaxis ACCESS: Right IJ central venous line placed 11/1016 #3 Family updated at bedside. Patient is full code. Level III follow-up Problem Qualifiers (1) CKD (chronic kidney disease): Qualified Codes: N18.9 - Chronic kidney disease, unspecified (2) HTN (hypertension): Qualified Codes: I10 - Essential (primary) hypertension (3) Obesity: (4) Diabetes mellitus: Qualified Codes: E11.52 - Type 2 diabetes mellitus with diabetic peripheral angiopathy with gangrene; Z79.4 - [facility]entiary (current) use of insulin Mina Chavis MD Dec 07, 2016 09:16
[2016-12-07] MEDS: ROCURONIUM INJ 50 MG/5 ML VIAL IV ONE ×2 (09:30→10:40)
[2016-12-07] MEDS ORDERED: DEXTROSE 50% IN WATER 50 ML VIAL(D50) IV PUSH PRN (09:30)
[2016-12-07] MEDS ORDERED: GLUCAGON 1 MG/ML VIAL OTHER PRN (09:30)
[2016-12-07] MEDS: ETOMIDATE 40 MG/20 ML VIAL IV PUSH ONE (09:30)
[2016-12-07] MEDS ORDERED: POLYETHYLENE GLYCOL 17 GM PKG PO ONE (10:45)
[2016-12-07] MEDS: INSULIN NovoLIN REGULAR SUPPLEMENTAL SCALE SQ SCH ×4 (12:11→23:06)
[2016-12-07] MEDS: SODIUM CHLOR 0.9% 1000 ML INJ 1,000 ML IV SCH ×2 (13:26→20:39)
[2016-12-07] MEDS: HEPARIN-D5W 25,000 U/250 ML 250 ML IV PRN (13:27)
[2016-12-07] MEDS ORDERED: ALBUMIN 5% INJ 500 ML IV ONE (14:00)
[2016-12-07] MEDS: NOREPINEPHRINE-DEXTROSE DRIP 250 ML IV PRN (14:08)
--- NOTE | 2016-12-07 14:38 | PD.CONS ---
[facility] Service Rehabilitation Medicine Consult Requested By Mina Chavis MD Reason for Consult Comprehensive rehabilitation evaluation. Primary Care Physician No Primary Care Physician History of Present Illness Suzy Robertson is a 51-year-old [id number] female admitted [facility] 12/01/16 with history of left flank pain. She is on have left hydronephrosis with acute kidney injury. On 12/05/16 she sustained asystolic cardiac arrest. She was intubated. She's for possible extubation later today. Review of Systems ROS Limitations: Clinical Condition, Intubated, Other (patient appears to deny any pain complaints) Past Family Social History Allergies: Coded Allergies: cefaclor (Unverified Allergy, Severe, HIVES, 12/01/16) erythromycin base (Unverified Allergy, Severe, HIVES, 12/01/16) levofloxacin (Unverified Allergy, Severe, HIVES, 12/01/16) penicillin G (Unverified Allergy, Severe, HIVES, 12/01/16) amoxicillin (Verified Allergy, Unknown, 12/01/16) promethazine (Verified Allergy, Unknown, 12/01/16) Past Medical History Coronary artery disease with history of OH Hypertension Diabetes mellitus Morbid obesity PhD Chronic kidney disease Neuropathy Anxiety Past Surgical History Cardiac stent placement Appendectomy Cholecystectomy Hysterectomy Left BKA 2015 Current Medications Current Medications Medications (Trade) Dose Ordered Sig/Kadeem Route Start Time Stop Time Status Last Admin (NS Flush) 2 ml UNSCH PRN IV FLUSH 12/01/16 09:15 (Zofran Inj) 4 mg Q8H PRN IV PUSH 12/01/16 12:30 12/04/16 08:27 Sodium Chloride 1,000 ml @ 100 mls/hr Q10H IV 12/01/16 13:00 12/07/16 13:26 (Lipitor) 80 mg HS PO 12/01/16 21:00 12/06/16 21:24 (Coreg) 3.125 mg BID PO 12/01/16 21:00 Future Hold 12/04/16 22:07 (Ativan) 0.5 mg DAILY PRN PO 12/01/16 12:30 ([place] 5-325 Mg) 1 tab Q4H PRN PO 12/02/16 10:30 Future Hold 12/03/16 14:16 (Fioricet 325-50-40) 1 tab Q6H PRN PO 12/03/16 19:00 Future Hold 12/04/16 17:07 (Phenergan Inj) 25 mg Q8HR PRN IM 12/04/16 08:45 (Ecotrin Ec) 81 mg DAILY PO 12/04/16 18:30 Future Hold 12/04/16 19:44 (Peridex 0.12% Liq) 15 ml BID@08,20 MT 12/05/16 08:00 12/07/16 07:52 (Mycostatin Oint) 1 applic Q8HR TOPICAL 12/05/16 06:00 12/07/16 12:12 Heparin Sodium/ Dextrose 250 ml @ 18 mls/hr TITRATE PRN IV 12/05/16 16:15 12/07/16 13:27 (Heparin Inj) 2,500 units UNSCH PRN IV PUSH 12/05/16 16:15 12/05/16 22:55 (Heparin Inj) 5,000 units UNSCH PRN IV PUSH 12/05/16 16:15 (Trandate Inj) 10 mg Q1HR PRN IV PUSH 12/05/16 17:30 (Apresoline Inj) 10 mg Q1HR PRN IV PUSH 12/05/16 17:30 12/05/16 17:45 (Nitroglycerin 2% Oint) 2 inch Q6HR PRN TOPICAL 12/05/16 17:30 Norepinephrine Bitartrate 250 ml @ 7.5 mls/hr TITRATE PRN IV 12/06/16 02:15 12/07/16 14:08 (Brethine Inj) 1 mg UNSCH PRN SQ 12/06/16 02:15 Midazolam HCl 100 ml @ 2 mls/hr TITRATE PRN IV 12/06/16 11:15 12/06/16 11:35 Fentanyl Citrate 250 ml @ 5 mls/hr TITRATE PRN IV 12/06/16 11:15 12/07/16 06:58 (Brilinta) 90 mg BID PO 12/06/16 21:00 12/07/16 07:53 (Prevacid Odt) 30 mg DAILY NG 12/07/16 09:00 12/07/16 07:53 (Duoneb Neb) 1 ampule Q6HR NEB NEB 12/06/16 16:00 12/07/16 08:38 (Albuterol Neb) 2.5 mg Q2HR NEB PRN NEB 12/06/16 12:15 (Tears Naturale Opth Soln) 1 drop Q8HR EACH EYE 12/06/16 14:00 12/07/16 12:12 (Colace Liq) 100 mg Q12HR PO 12/06/16 21:00 12/07/16 07:52 (Levemir Inj) 10 units Q12HR SQ 12/06/16 21:00 12/07/16 07:53 (Senna Liq) 8.8 mg BID PO 12/07/16 21:00 (Miralax) 17 gm DAILY PO 12/08/16 09:00 (D50w (Vial) Inj) 50 ml UNSCH PRN IV PUSH 12/07/16 09:30 (Glucagon Inj) 1 mg UNSCH PRN OTHER 12/07/16 09:30 (NovoLIN R SUPPLEMENTAL SCALE) 1 Q4HR SQ 12/07/16 12:00 12/07/16 12:11 (Decadron Inj) 4 mg Q6HR IV PUSH 12/07/16 13:00 12/08/16 12:59 12/07/16 13:19 Albumin Human 500 ml @ 250 mls/hr ONCE ONCE IV 12/07/16 14:00 12/07/16 15:59 UNV Family History Per patient's brother family history is unclear Social History Prior to admission patient lived in [place], [place] with her . They live in a one-story home with no steps to enter. She was ambulating with the left BKA prosthesis household distances using a walker. She uses a wheelchair for longer distances. She was independent with ADLs. Exam I&O / VS 12/07/16 12/07/16 12/08/16 15:00 23:00 07:00 Intake Total 1250 ml Balance 1250 ml IV Total 1250 ml Vital Signs Date Time Temp Pulse Resp B/P (MAP) Pulse Ox O2 Delivery O2 Flow Rate FiO2 12/07/16 14:08 62 78/41 12/07/16 12:00 40 12/07/16 12:00 78 12/07/16 12:00 98.6 78 12 150/67 (94) 98 12/07/16 10:00 75 12/07/16 08:38 40 12/07/16 08:38 99 40 12/07/16 08:00 40 12/07/16 08:00 98.0 87 10 156/72 (100) 99 12/07/16 08:00 92 12/07/16 07:00 99 Mechanical Ventilator 40 12/07/16 06:00 54 12/07/16 04:00 55 12/07/16 04:00 40 12/07/16 03:14 97 40 12/07/16 03:00 98.4 55 10 106/57 (73) 98 12/07/16 02:00 60 12/07/16 01:00 97 40 12/07/16 00:00 54 12/07/16 00:00 40 12/06/16 23:00 98.5 54 10 105/57 (73) 98 12/06/16 22:00 55 12/06/16 20:39 98 40 12/06/16 20:00 40 12/06/16 20:00 64 12/06/16 19:00 98.7 64 10 112/55 (74) 99 12/06/16 19:00 99 Mechanical Ventilator 40 12/06/16 16:05 97 40 12/06/16 16:00 98.4 69 10 115/58 (77) 97 12/06/16 16:00 69 12/06/16 15:27 96 40 12/06/16 14:30 99 100 General: Intubated, No acute distress Respiratory: Lungs CTA, Non-labored respirations, BS equal Gastrointestinal: Positive Bowel Sounds, Non-Distended, Non-Tender, Other ( obese) Cardiovascular: Normal rate, Regular Rhythm Musculoskeletal: ROM (grossly within normal limits) Psychiatric: Cooperative Neurologic: Pupils (PERRLA), EOM (intact), Other (follows commands to move both upper and lower extremities; left BKA knee to full extension) Sensory Unable to assess Assessment and Plan Diagnosis: (1) Cardiac arrest ICD Codes: I46.9 - Cardiac arrest, cause unspecified Status: Acute Assessment 1. Cardiac arrest currently intubated for possible extubation later today 2. Left hydronephrosis with acute kidney injury 3. Coronary artery disease with history of OH status post stent 4. Hypertension 5. Diabetes mellitus 6. Morbid obesity 7. Chronic kidney disease 8. History of neuropathy 9. Anxiety Plan 1. Physical therapy to begin range of motion progressing mobilization as medical status allows 2. Occupational therapy for range of motion progressing to ADL training as appropriate 3. Reposition every 2 hours to protect skin and monitor for breakdown 4. Currently on heparin IV 5. Will follow regarding ongoing rehabilitation needs at discharge in conjunction with case management. Rehabilitation plan of care discussed with patient's family and questions answered 6. Will follow-up hospitalized and at discharge as appropriate Thank you for this consult Marah Suarez MD Dec 07, 2016 14:38
--- NOTE | 2016-12-07 16:29 | MG ---
cc: KIMBERLY CORADO M.D. Lab No: Date: 12/07/2016 Age: 48 Sex: F Race: The EEG was obtained on this 51-year-old patient intubated. Fentanyl was stopped as well as propofol. History of unresponsiveness and cardiac arrest. Apparently on Versed as well. This EEG is showing a predominance of delta activity bilaterally. There is associated artifact. There are lack of alpha rhythms. The photic stimulation was unremarkable. INTERPRETATION Markedly abnormal EEG because of prominent bihemispheric slowing suggesting bilateral abnormalities. No epileptiform features present. Kimberly Corado MD [facility]/ /4:06 PM /4:20 PM
[2016-12-07] MEDS: MIDAZOLAM 100 MG/100 ML INJ 100 ML IV PRN (20:39)
[2016-12-07] MEDS: SENNOSIDES SYRUP 8.8 MG/5 ML CUP PO SCH (20:41)
[2016-12-07] MEDS: ATORVASTATIN 80 MG TAB PO SCH (20:41)
[2016-12-08] VITALS (19 sets, daily range): BP systolic 141–158; BP diastolic 67–74; PULSE 56–83; RESP 10–22; TEMP 98–99.1; O2SAT 95–99
[2016-12-08] MEDS: RESP: ALBUTEROL 2.5 MG/IPRATROPIUM 0.5 MG NEB (SCH) NEB ×4 (03:07→21:13)
--- NOTE | 2016-12-08 03:26 | RADRPT ---
EXAM DATE/TIME: 12/08/2016 01:47 [facility] COMPARISON: CHEST SINGLE AP, December 07, 2016, 4:55. INDICATIONS : Evaluate for respiratory failure. MEDICAL HISTORY : Hypertension. Diabetes mellitus type 2. Coronary artery disease. SURGICAL HISTORY : Coronary artery stent. Appendectomy. Cholecystectomy. ENCOUNTER: Subsequent ACUITY: 1 week PAIN SCORE: Non-responsive. LOCATION: chest FINDINGS: A single view of the chest demonstrates endotracheal tube in good position. NG enters stomach right s ided central line in superior vena cava. No pneumothorax. Bilateral mostly basilar airspace similar t o December 07. Cardiomegaly. CONCLUSION: 1. Basilar airspace disease similar to December 07. Support apparatus unchanged. Tin Arzate MD on December 08, 2016 at 3:23 Board Certified Radiologist. This report was verified electronically.
[2016-12-08 04:02] LABS: HEMATOCRIT 31.1 % (35.0-46.0); MEAN CELL VOLUME 88.8 FL (80.0-100.0); MEAN CORPUSCULAR HEMOGLOBIN 28.4 PG (27.0-34.0); PLATELET COUNT 302 TH/MM3 (150-450); RED BLOOD COUNT 3.51 MIL/MM3 (4.00-5.30); RED CELL DISTRIBUTION WIDTH 15.7 % (11.6-17.2); REVIEW FLAG FINAL; WHITE BLOOD COUNT 14.9 TH/MM3 (4.0-11.0)
[2016-12-08 04:16] LABS: APTT (PATIENT) 53.6 SEC (24.3-30.1)
[2016-12-08] MEDS: DEXAMETHASONE SOD PHOS 4 MG/ML VIAL IV PUSH SCH ×2 (04:28→11:04)
[2016-12-08] MEDS: NYSTATIN 100,000 U/GM OINT 15 GM TUBE TOPICAL SCH ×3 (04:28→20:47)
[2016-12-08] MEDS: fentaNYL DRIP 250 ML IV PRN (04:28)
[2016-12-08] MEDS: ARTIFICIAL TEARS OPTH SOLN 15 ML BTL EACH EYE SCH ×3 (04:28→20:47)
[2016-12-08] MEDS: SODIUM CHLOR 0.9% 1000 ML INJ 1,000 ML IV SCH ×2 (04:29→07:00)
[2016-12-08] MEDS: HEPARIN-D5W 25,000 U/250 ML 250 ML IV PRN ×2 (04:37→08:30)
[2016-12-08 06:04] LABS: BICARBONATE 24.5 MEQ/L (21.0-32.0); MAGNESIUM 2.1 MG/DL (1.5-2.5); POTASSIUM 4.9 MEQ/L (3.5-5.1)
[2016-12-08] MEDS: INSULIN NovoLIN REGULAR SUPPLEMENTAL SCALE SQ SCH ×5 (06:14→20:00)
[2016-12-08] MEDS: INSULIN DETEMIR 100 UNITS/ML VIAL SQ SCH ×2 (07:47→21:00)
[2016-12-08] MEDS: CHLORHEXIDINE 0.12% (ORAL KIT) 15 ML CUP MT SCH ×2 (07:47→20:00)
[2016-12-08] MEDS: SENNOSIDES SYRUP 8.8 MG/5 ML CUP PO SCH ×2 (07:48→20:44)
[2016-12-08] MEDS: DOCUSATE SODIUM 100 MG/10 ML UDC PO SCH ×2 (07:48→20:43)
[2016-12-08] MEDS: TICAGRELOR 90 MG TAB PO SCH ×2 (07:48→21:29)
[2016-12-08] MEDS: LANSOPRAZOLE SOLUTAB 30 MG TAB NG SCH (07:48)
[2016-12-08] MEDS ORDERED: POLYETHYLENE GLYCOL 17 GM PKG PO SCH (09:00)
--- NOTE | 2016-12-08 10:10 | HHI.CCPN ---
Subjective Remarks/Hospital Course 51-year-old female with past medical history of coronary artery disease with stents, hypertension, diabetes, morbid obesity, PAD status post left BKA, CKD who originally arrived at [facility] emergency department on 12/01/16 with a one-day history of left lower quadrant pain. She had previously had a CT abdomen and pelvis with IV contrast at [facility] that was reportedly negative. On the CT abdomen and pelvis that was obtained at [place] had residual contrast in the left ureter. There was mild left hydrouretero-hydronephrosis. No ureteral stone was visible. Urology has evaluated and felt that this may represent a small ureteral stone which would likely pass spontaneously versus a UVJ stricture. Renogram was negative for obstruction on 12/04 and she was cleared for d/c by urology. Creatinine on admission was 1.73 and had down trended to 1.36. She was afebrile and urinalysis was negative for evidence of infection. [facility] responded to CODE BLUE. RN states that patient had gotten up with the tech to go to the bathroom and when she returned to the bed she began complaining of sudden onset of shortness of breath. She reportedly did not mention chest pain. She then became unresponsive and was in asystolic cardiac arrest and CPR was initiated. She had no IV access as multiple nurses had attempted to place a peripheral IV access prior to the arrest. She was intubated and had ROSC after 6 minutes. Glucose was greater than 200. She did not receive any ACLS meds due to lack of IV access despite ongoing attempts by nursing to place PIV. She obtained ROSC before intubation. She is in sinus rhythm in the 70s and hypertensive. CVL was placed. 12/06: Afebrile. Currently resting in bed in no acute distress. Negative MRI/ MRA brain yesterday. Evaluated by cardiology. They believe this is pulmonary relation. We'll CT her neck today. No Cuff leak on ET tube today. 12/07: Afebrile. Currently a PSV trial 09/30 at 40%. Awake and following commands. CT neck normal. Echocardiogram EF 60-65%. Will attempt extubation today at 10:30 with CMAC at bedside if no cuff leak after receiving dexamethasone 1 day and passes mechanical ventilation weaning parameters. no bowel movement 3 days Subjective 12/08: Afebrile. Will attempt extubation today with glide scope at bedside. No bowel movement today. Tolerating tube feeds. Objective Vital Signs Date Time Temp Pulse Resp B/P (MAP) Pulse Ox O2 Delivery O2 Flow Rate FiO2 12/08/16 08:35 98 40 12/08/16 08:00 73 12/08/16 08:00 98.0 10 141/67 (91) 12/08/16 07:00 Mechanical Ventilator Intake and Output 12/08/16 12/08/16 12/09/16 08:00 16:00 00:00 Intake Total 2120 ml 64 ml Output Total 550 ml Balance 1570 ml 64 ml Result Diagram: 12/08/16 0350 12/08/16 0350 Other Results Microbiology Date/Time Source Procedure Growth Status 12/05/16 02:32 Blood Peripheral Aerobic Blood Culture - Preliminary NO GROWTH IN 2 DAYS Resulted 12/05/16 02:32 Blood Peripheral Anaerobic Blood Culture - Preliminary NO GROWTH IN 2 DAYS Resulted 12/06/16 02:40 Sputum Endotracheal Gram Stain - Final Complete 12/06/16 02:40 Sputum Endotracheal Sputum Culture - Final HEAVY GROWTH NORMAL RESPIRATORY HAIM Complete Imaging Last Impressions Chest X-Ray 12/07/16 0600 Signed Impressions: Service Date/Time: November 04:55 - CONCLUSION: Worsening bibasilar pleuroparenchymal opacities. Freddy Montez MD Neck CT 12/06/16 0000 Signed Impressions: Service Date/Time: Tuesday, December 06, 2016 14:44 - CONCLUSION: 1. Unremarkable CT scan of the neck. No masses are identified. Nonspecific adenopathy Marquez Moser MD Upper Extremity Ultrasound 12/05/16 0000 Signed Impressions: Service Date/Time: Monday, December 05, 2016 16:07 - CONCLUSION: No evidence of superficial or deep venous thrombosis. Suboptimal visualization of the right subclavian vein do to central line. Jono Jose MD Neck Magnetic Resonance Angiography 12/05/16 0000 Signed Impressions: Service Date/Time: Monday, December 05, 2016 09:06 - CONCLUSION: 1. Left carotid: 2. There is mild narrowing at the origin of the left internal carotid this is estimated to be in the range of 20-30%% by NASCET criteria. 3. 4. Right carotid: 5. There is no hemodynamically significant carotid artery stenosis. 6. Both vertebral arteries are widely patent. Gus Iverson MD Lower Extremity Ultrasound 12/05/16 Signed Impressions: Service Date/Time: Monday, December 05, 2016 08:08 - CONCLUSION: 1. No sonographic evidence for lower extremity DVT. Pierce Avendano MD Liver Ultrasound 12/05/16 Signed Impressions: Service Date/Time: Monday, December 05, 2016 07:57 - CONCLUSION: 1. Hepatomegaly with diffusely increased hepatic echogenicity consistent with hepatic steatosis versus medical liver disease. 2. Trace free fluid along the inferior hepatic margin. 3. Status post cholecystectomy with normal caliber common bile duct. Pierce Avendano MD Head Magnetic Resonance Angiography 12/05/16 Signed Impressions: Service Date/Time: Monday, December 05, 2016 09:06 - CONCLUSION: Normal examination. No evidence of aneurysm, AVM, vasculopathy or stenosis. Jono Jose MD CT Angiography 12/05/16 Signed Impressions: Service Date/Time: Monday, December 05, 2016 05:15 - CONCLUSION: No evidence of pulmonary embolism Freddy Montez MD Brain MRI 12/05/16 Signed Impressions: Service Date/Time: Monday, December 05, 2016 09:06 - CONCLUSION: No acute disease. No evidence of acute infarct, hemorrhage, mass or edema. Jono Jose MD Renal Scan w/Medication NM 12/04/16 Signed Impressions: Service Date/Time: Sunday, December 04, 2016 08:59 - CONCLUSION: There is no evidence for obstruction. John Iverson MD FACR Abdomen/Pelvis CT 12/01/1608 Signed Impressions: Service Date/Time: Thursday, December 01, 2016 09:43 - CONCLUSION: 1. Striated left nephrogram from recent prior contrast administration with associated mild left hydroureteronephrosis extending to the UVJ. A definite radiopaque ureteral calculus is not visualized although a very small calculus can be obscured by the dense contrast in the left ureter. Findings are most consistent with at least a partial left UVJ obstruction although differential consideration includes left sided pyelonephritis. Clinical correlation is recommended. Pierce Avendano MD Objective Remarks GENERAL: 51-year-old female who is orotracheally intubated. SKIN: Warm and dry. There is skin breakdown under right breast but no necrosis or evidence of infection per Dr. Perez examination 12/05. I did not examine.. Tinea around the umbilicus HEAD: Atraumatic. Normocephalic. EYES: Pupils equal and round, 2mm and reactive bilaterally. . No scleral icterus. No injection or drainage. ENT: No nasal bleeding or discharge. Mucous membranes pink and moist. NECK: Trachea midline. Obese. No thyromegaly CARDIOVASCULAR: RRR. S1, S2. No S4. Without murmurs RESPIRATORY: Diminished but essentially clear without wheezes rales or rhonchi GASTROINTESTINAL: Abdomen soft, non-tender, obese. Hypoactive bowel sounds are appreciated : Levy inserted and light myrna urine output. MSK: L leg s/p BKA with well healed incision scar. 1+ pitting pitting edema of all extremities. NEUROLOGICAL: Cranial nerves II through XII grossly intact. Strength is equal symmetric. Normal sensation. Vascular Central Line Catheter: Yes Assessment to: Continue Line: Central Venous Catheter Location: Internal, Jugular A/P Problem List: (1) Peripheral neuropathy ICD Code: G62.9 - Polyneuropathy, unspecified Status: Chronic (2) Cardiac arrest ICD Code: I46.9 - Cardiac arrest, cause unspecified Status: Acute (3) Leukocytosis ICD Code: D72.829 - Elevated white blood cell count, unspecified Status: Acute (4) CKD (chronic kidney disease) ICD Code: N18.9 - Chronic kidney disease, unspecified Status: Chronic (5) HTN (hypertension) ICD Code: I10 - Essential (primary) hypertension Status: Chronic (6) Transaminitis ICD Code: R74.0 - Nonspecific elevation of levels of transaminase and lactic acid dehydrogenase [LDH] Status: Acute (7) Obesity ICD Code: E66.9 - Obesity, unspecified Status: Chronic (8) Diabetes mellitus ICD Code: E11.9 - Diabetes mellitus Status: Chronic (9) Hydroureter ICD Code: N13.4 - Hydroureter Status: Acute (10) CAD (coronary artery disease) ICD Code: I25.10 - Atherosclerotic heart disease of [place] coronary artery without angina pectoris (11) Gastroparesis ICD Code: K31.84 - Gastroparesis Status: Chronic (12) Respiratory failure, acute ICD Code: J96.00 - Acute respiratory failure, unspecified whether with hypoxia or hypercapnia Status: Acute (13) Hyperlipidemia ICD Code: E78.5 - Hyperlipidemia, unspecified Status: Chronic Assessment and Plan NEURO/PSYCH: Peripheral neuropathy/right lower extremity Midazolam/fentanyl drips for sedation/analgesia while intubated RASS target -2 Daily sedation vacation Follow commands Previously on lorazepam 0.5 mill grams a needed for anxiety RESP: Acute respiratory failure Probable DAE/pickwickian ACV /5/40 Currently on PSV trial 09/30 at 40% Ventilator bundle Albuterol/ipratropium aerosols every 6 hours with albuterol aerosols every 2 hours. Dyspnea Spontaneous breathing trials as today. Improved tidal volumes.. Dexamethasone 4 mg every 6 hours [address] neck 12/06 no obstructive process CXR - mild cardiomegaly. Bilateral infiltrates CV: Asystolic cardiac arrest Coronary artery disease with prior stents ~ 2 years ago. History of hypertension Hyperlipidemia Peripheral arterial disease s/p L BKA Troponins negative Echocardiogram EF 60-65%. Ticagrelor 90 milligrams bid and ASA 81 daily. Will hold ASA while on therapeutic anticoagulation. Continue Atorvastatin 80 mg po qhs for now, continue to monitor transaminase and hold if indicated. 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 Believes this is pulmonary nature. Have signed off Holding furosemide 40 mg daily marginal renal status. Likely restart in a.m. Holding carvedilol 3.125 milligrams twice a day in light of borderline blood pressures GI: Morbid obesity Gastroparesis Elevated transaminases History of hepatitis A Patient is not chronically on metoclopramide for gastroparesis because they "didn't work". Place OGT to [facility]. - Start tube feeding with Glucerna 1.5 goal 60 cc an hour. Currently off Lansoprazole 30 milligrams daily for GI prophylaxis Docusate sodium 100 mg twice a day for bowel regimen. Added Senokot 8.6 g twice a day, polyethylene glycol 17 g twice a day and lactulose 30 cc 4 times a day. FEN/RENAL: Acute kidney injury with unknown baseline creatinine CKD unknown stage Nephrolithiasis Left UJV obstruction with mild hydronephrosis Insert levy catheter for close monitoring of UOP s/p cardiac arrest. Monitor electrolytes and replace as clinically indicated. Mild transaminase elevation. Follow-up right upper quadrant ultrasound - revealed hepatic steatosis. Status post cholecystectomy. Continue 0.9 NaCl @ 100 ml/hr. likely can discontinue today Nuclear medicine renal scan within normal limits 12/04 ID: Urinalysis was obtained and demonstrates no evidence of UTI. Chest x-ray shows no infiltrate. Monitor for signs and symptoms of infection HEME: Leukocytosis Normocytic anemia History of factor V Leiden deficiency Monitor CBC daily. Follow trends. No indication for transfusion of blood products at this time We'll continue coags with heparin drip while immobile/increased risk for thrombus. ENDO: Diabetes mellitus Has been on low-dose insulin sliding scale before meals at bedtime. Previously on detemir 60 mg daily. We'll start 10 mill grams twice a day with sliding scale insulin/Novulin R every 4 hours high scale PROPH: Continue heparin drip. Provide DVT prophylaxis lansoprazole 30 milligrams daily for stress ulcer prophylaxis ACCESS: Right IJ central venous line placed 11/1016 #4 Family updated at bedside. Patient is full code. Level III follow-up Problem Qualifiers (1) CKD (chronic kidney disease): Qualified Codes: N18.9 - Chronic kidney disease, unspecified (2) HTN (hypertension): Qualified Codes: I10 - Essential (primary) hypertension (3) Obesity: (4) Diabetes mellitus: Qualified Codes: E11.52 - Type 2 diabetes mellitus with diabetic peripheral angiopathy with gangrene; Z79.4 - FDC (current) use of insulin Mina Chavis MD Dec 08, 2016 10:10
[2016-12-08] MEDS ORDERED: GLYCERIN ADULT 2 GM SUPP RECTAL PRN (10:15)
[2016-12-08] MEDS ORDERED: ETOMIDATE 40 MG/20 ML VIAL IV PUSH ONE (10:15)
[2016-12-08] MEDS ORDERED: METHYLNALTREXONE BROMIDE 12 MG/0.6 ML VIAL SQ ONE (10:15)
[2016-12-08] MEDS ORDERED: ROCURONIUM INJ 100 MG/10 ML VIAL IV ONE (10:15)
[2016-12-08] MEDS ORDERED: FUROSEMIDE 40 MG/4 ML VIAL IV PUSH ONE (10:45)
[2016-12-08] MEDS: LACTULOSE SYRUP 20 GM/30 ML CUP PO SCH ×3 (11:57→20:43)
[2016-12-08] MEDS ORDERED: LABETALOL HCL 100 MG/20 ML VIAL IV PUSH PRN (12:00)
[2016-12-08] MEDS ORDERED: hydrALAZINE HCL 20 MG/ML VIAL IV PUSH PRN (12:00)
[2016-12-08] MEDS ORDERED: NITROGLYCERIN 2% OINT 1 GM PACKET TOPICAL PRN (12:00)
[2016-12-08] MEDS ORDERED: RESP: RACEPINEPHRINE 2.25% 0.5 ML NEB NEB ONE (12:45)
[2016-12-08] MEDS ORDERED: INFLUENZA VIRUS VACCINE (QUADRIVALENT) 0.5 ML SYR IM ONE (14:30)
[2016-12-08] MEDS: ACETAMINOPHEN 1000 MG/100 ML 100 ML IV PRN ×2 (14:34→21:07)
[2016-12-08] MEDS: ATORVASTATIN 80 MG TAB PO SCH (20:43)
[2016-12-08] MEDS: POLYETHYLENE GLYCOL 17 GM PKG PO SCH (20:43)
[2016-12-08] MEDS: hydrALAZINE HCL 20 MG/ML VIAL IV PUSH PRN (21:16)
[2016-12-09] VITALS (15 sets, daily range): BP systolic 129–160; BP diastolic 65–84; PULSE 76–83; RESP 15–23; TEMP 98.4–98.8; O2SAT 93–99
[2016-12-09] MEDS: RESP: ALBUTEROL 2.5 MG/IPRATROPIUM 0.5 MG NEB (SCH) NEB ×4 (03:39→21:34)
[2016-12-09] MEDS: INSULIN NovoLIN REGULAR SUPPLEMENTAL SCALE SQ SCH ×6 (04:00→23:55)
[2016-12-09] MEDS: ARTIFICIAL TEARS OPTH SOLN 15 ML BTL EACH EYE SCH ×3 (04:44→22:00)
[2016-12-09] MEDS: NYSTATIN 100,000 U/GM OINT 15 GM TUBE TOPICAL SCH ×3 (04:45→22:00)
[2016-12-09] MEDS: CHLORHEXIDINE 0.12% (ORAL KIT) 15 ML CUP MT SCH ×2 (08:00→20:00)
[2016-12-09] MEDS: SENNOSIDES SYRUP 8.8 MG/5 ML CUP PO SCH (09:00)
[2016-12-09] MEDS: DOCUSATE SODIUM 100 MG/10 ML UDC PO SCH (09:00)
[2016-12-09] MEDS: LACTULOSE SYRUP 20 GM/30 ML CUP PO SCH ×4 (09:00→20:39)
[2016-12-09] MEDS: POLYETHYLENE GLYCOL 17 GM PKG PO SCH ×2 (09:00→21:00)
[2016-12-09] MEDS: INSULIN DETEMIR 100 UNITS/ML VIAL SQ SCH ×2 (09:00→20:39)
[2016-12-09] MEDS: ACETAMINOPHEN 1000 MG/100 ML 100 ML IV PRN ×2 (09:43→20:58)
[2016-12-09] MEDS: ONDANSETRON HCL 4 MG/2 ML VIAL IV PUSH PRN ×2 (09:44→20:58)
[2016-12-09] MEDS: TICAGRELOR 90 MG TAB PO SCH ×2 (09:45→21:42)
[2016-12-09] MEDS: LANSOPRAZOLE SOLUTAB 30 MG TAB NG SCH (09:45)
--- NOTE | 2016-12-09 12:09 | RADRPT ---
EXAM DATE/TIME: 12/09/2016 11:40 [facility] COMPARISON: CHEST SINGLE AP, December 08, 2016, 1:47. INDICATIONS : Evaluate for respiratory failure. Shortness of breath. MEDICAL HISTORY : Hypertension. Diabetes mellitus type 2. Coronary artery disease. SURGICAL HISTORY : Coronary artery stent. Appendectomy. Cholecystectomy. ENCOUNTER: Subsequent ACUITY: 1 week PAIN SCORE: 0/10 LOCATION: chest FINDINGS: The ET tube and NG tube have been removed. There is no pneumothorax. There is improved aeration of dionte th lung fallon. The heart size is stable. No significant pleural effusions. Right central line remain s in place. CONCLUSION: Improving bilateral pulmonary infiltrates. Hill Carr MD on December 09, 2016 at 12:07 Board Certified Radiologist. This report was verified electronically.
--- NOTE | 2016-12-09 13:10 | HHI.CCPN ---
Subjective Remarks/Hospital Course 51-year-old female with past medical history of coronary artery disease with stents, hypertension, diabetes, morbid obesity, PAD status post left BKA, CKD who originally arrived at [facility] emergency department on 12/01/16 with a one-day history of left lower quadrant pain. She had previously had a CT abdomen and pelvis with IV contrast at [facility] that was reportedly negative. On the CT abdomen and pelvis that was obtained at [place] had residual contrast in the left ureter. There was mild left hydrouretero-hydronephrosis. No ureteral stone was visible. Urology has evaluated and felt that this may represent a small ureteral stone which would likely pass spontaneously versus a UVJ stricture. Renogram was negative for obstruction on 12/04 and she was cleared for d/c by urology. Creatinine on admission was 1.73 and had down trended to 1.36. She was afebrile and urinalysis was negative for evidence of infection. [facility] responded to CODE BLUE. RN states that patient had gotten up with the tech to go to the bathroom and when she returned to the bed she began complaining of sudden onset of shortness of breath. She reportedly did not mention chest pain. She then became unresponsive and was in asystolic cardiac arrest and CPR was initiated. She had no IV access as multiple nurses had attempted to place a peripheral IV access prior to the arrest. She was intubated and had ROSC after 6 minutes. Glucose was greater than 200. She did not receive any ACLS meds due to lack of IV access despite ongoing attempts by nursing to place PIV. She obtained ROSC before intubation. She is in sinus rhythm in the 70s and hypertensive. CVL was placed. 12/06: Afebrile. Currently resting in bed in no acute distress. Negative MRI/ MRA brain yesterday. Evaluated by cardiology. They believe this is pulmonary relation. We'll CT her neck today. No Cuff leak on ET tube today. 12/07: Afebrile. Currently a PSV trial 09/30 at 40%. Awake and following commands. CT neck normal. Echocardiogram EF 60-65%. Will attempt extubation today at 10:30 with CMAC at bedside if no cuff leak after receiving dexamethasone 1 day and passes mechanical ventilation weaning parameters. no bowel movement 3 days 12/08: Afebrile. Will attempt extubation today with glide scope at bedside. No bowel movement today. Tolerating tube feeds. Subjective 12/09: Currently afebrile. On Ventimask at 35%. More awake and alert today. No bowel movement. Objective Vital Signs Date Time Temp Pulse Resp B/P (MAP) Pulse Ox O2 Delivery O2 Flow Rate FiO2 12/09/16 10:03 93 Aerosol Mask 6.00 35 12/09/16 06:00 80 12/09/16 04:00 98.4 21 154/70 (98) Intake and Output 12/09/16 12/09/16 12/10/16 08:00 16:00 00:00 Intake Total 310 ml Output Total 1252 ml Balance -942 ml Result Diagram: 12/08/16 0350 12/08/16 0350 Other Results Microbiology Date/Time Source Procedure Growth Status 12/05/16 02:32 Blood Peripheral Aerobic Blood Culture - Preliminary NO GROWTH IN 4 DAYS Resulted 12/05/16 02:32 Blood Peripheral Anaerobic Blood Culture - Preliminary NO GROWTH IN 4 DAYS Resulted 12/06/16 02:40 Sputum Endotracheal Gram Stain - Final Complete 12/06/16 02:40 Sputum Endotracheal Sputum Culture - Final HEAVY GROWTH NORMAL RESPIRATORY HAIM Complete Imaging Last Impressions Chest X-Ray 12/09/16 0000 Signed Impressions: Service Date/Time: Friday, December 09, 2016 11:40 - CONCLUSION: Improving bilateral pulmonary infiltrates. Hill Carr MD Neck CT 12/06/16 0000 Signed Impressions: Service Date/Time: Tuesday, December 06, 2016 14:44 - CONCLUSION: 1. Unremarkable CT scan of the neck. No masses are identified. Nonspecific adenopathy Marquez Moser MD Upper Extremity Ultrasound 12/05/16 0000 Signed Impressions: Service Date/Time: Monday, December 05, 2016 16:07 - CONCLUSION: No evidence of superficial or deep venous thrombosis. Suboptimal visualization of the right subclavian vein do to central line. Jono Jose MD Neck Magnetic Resonance Angiography 12/05/16 0000 Signed Impressions: Service Date/Time: Monday, December 05, 2016 09:06 - CONCLUSION: 1. Left carotid: 2. There is mild narrowing at the origin of the left internal carotid this is estimated to be in the range of 20-30%% by NASCET criteria. 3. 4. Right carotid: 5. There is no hemodynamically significant carotid artery stenosis. 6. Both vertebral arteries are widely patent. Gus Iverson MD Lower Extremity Ultrasound 12/05/16 Signed Impressions: Service Date/Time: Monday, December 05, 2016 08:08 - CONCLUSION: 1. No sonographic evidence for lower extremity DVT. Pierce Avendano MD Liver Ultrasound 12/05/16 Signed Impressions: Service Date/Time: Monday, December 05, 2016 07:57 - CONCLUSION: 1. Hepatomegaly with diffusely increased hepatic echogenicity consistent with hepatic steatosis versus medical liver disease. 2. Trace free fluid along the inferior hepatic margin. 3. Status post cholecystectomy with normal caliber common bile duct. Pierce Avendano MD Head Magnetic Resonance Angiography 12/05/16 Signed Impressions: Service Date/Time: Monday, December 05, 2016 09:06 - CONCLUSION: Normal examination. No evidence of aneurysm, AVM, vasculopathy or stenosis. Jono Jose MD CT Angiography 12/05/16 Signed Impressions: Service Date/Time: Monday, December 05, 2016 05:15 - CONCLUSION: No evidence of pulmonary embolism Freddy Montez MD Brain MRI 12/05/16 Signed Impressions: Service Date/Time: Monday, December 05, 2016 09:06 - CONCLUSION: No acute disease. No evidence of acute infarct, hemorrhage, mass or edema. Jono Jose MD Renal Scan w/Medication NM 12/04/16 Signed Impressions: Service Date/Time: Sunday, December 04, 2016 08:59 - CONCLUSION: There is no evidence for obstruction. John Iverson MD FACR Abdomen/Pelvis CT 12/01/16 0908 Signed Impressions: Service Date/Time: Thursday, December 01, 2016 09:43 - CONCLUSION: 1. Striated left nephrogram from recent prior contrast administration with associated mild left hydroureteronephrosis extending to the UVJ. A definite radiopaque ureteral calculus is not visualized although a very small calculus can be obscured by the dense contrast in the left ureter. Findings are most consistent with at least a partial left UVJ obstruction although differential consideration includes left sided pyelonephritis. Clinical correlation is recommended. Pierce Avendano MD Objective Remarks GENERAL: 51-year-old female who resting in bed Arreola mask SKIN: Warm and dry. There is skin breakdown under right breast but no necrosis or evidence of infection per Dr. Perez examination 12/05. I did not examine.. Tinea around the umbilicus HEAD: Atraumatic. Normocephalic. EYES: Pupils equal and round, 2mm and reactive bilaterally. . No scleral icterus. No injection or drainage. ENT: No nasal bleeding or discharge. Mucous membranes pink and moist. NECK: Trachea midline. Obese. No thyromegaly CARDIOVASCULAR: RRR. S1, S2. No S4. Without murmurs RESPIRATORY: Diminished but essentially clear without wheezes rales or rhonchi GASTROINTESTINAL: Abdomen soft, non-tender, obese. Hypoactive bowel sounds are appreciated : Levy inserted and light myrna urine output. MSK: L leg s/p BKA with well healed incision scar. 1+ pitting pitting edema of all extremities. NEUROLOGICAL: Cranial nerves II through XII grossly intact. Strength is equal symmetric. Normal sensation. Line: Central Venous Catheter Location: Internal, Jugular A/P Problem List: (1) Peripheral neuropathy ICD Code: G62.9 - Polyneuropathy, unspecified Status: Chronic (2) Cardiac arrest ICD Code: I46.9 - Cardiac arrest, cause unspecified Status: Acute (3) Leukocytosis ICD Code: D72.829 - Elevated white blood cell count, unspecified Status: Acute (4) CKD (chronic kidney disease) ICD Code: N18.9 - Chronic kidney disease, unspecified Status: Chronic (5) HTN (hypertension) ICD Code: I10 - Essential (primary) hypertension Status: Chronic (6) Transaminitis ICD Code: R74.0 - Nonspecific elevation of levels of transaminase and lactic acid dehydrogenase [LDH] Status: Acute (7) Obesity ICD Code: E66.9 - Obesity, unspecified Status: Chronic (8) Diabetes mellitus ICD Code: E11.9 - Diabetes mellitus Status: Chronic (9) Hydroureter ICD Code: N13.4 - Hydroureter Status: Acute (10) CAD (coronary artery disease) ICD Code: I25.10 - Atherosclerotic heart disease of [place] coronary artery without angina pectoris (11) Gastroparesis ICD Code: K31.84 - Gastroparesis Status: Chronic (12) Respiratory failure, acute ICD Code: J96.00 - Acute respiratory failure, unspecified whether with hypoxia or hypercapnia Status: Acute (13) Hyperlipidemia ICD Code: E78.5 - Hyperlipidemia, unspecified Status: Chronic Assessment and Plan NEURO/PSYCH: Peripheral neuropathy/right lower extremity IV Ofirmev 1 g every 8 hours when necessary pain 125/fever [place] 5/25 one tablet every 6 hours. Pain 6-10 Follow commands Previously on lorazepam 0.5 mill grams a needed for anxiety RESP: Acute respiratory failure Probable DAE/pickwickian Currently on cooling mask at 35%. Wean to keep sats greater than equal to 92% Incentive spirometry while awake Albuterol/ipratropium aerosols every 6 hours with albuterol aerosols every 2 hours. Dyspnea Dexamethasone 4 mg every 6 hours [address] neck 12/06 no obstructive process CXR 12/09 - mild cardiomegaly. Improving Bilateral infiltrates CV: Asystolic cardiac arrest Coronary artery disease with prior stents ~ 2 years ago. History of hypertension Hyperlipidemia Peripheral arterial disease s/p L BKA Troponins negative Echocardiogram EF 60-65%. Ticagrelor 90 milligrams bid and ASA 81 daily. Will hold ASA while on therapeutic anticoagulation. Continue Atorvastatin 80 mg po qhs for now, continue to monitor transaminase and hold if indicated. Patients superintendent storage area is Dr. Tejada in [facility]. Believes this is pulmonary nature. Have signed off Holding furosemide 40 mg daily marginal renal status. Likely restart in a.m. Holding carvedilol 3.125 milligrams twice a day in light of borderline blood pressures GI: Morbid obesity Gastroparesis Elevated transaminases History of hepatitis A Patient is not chronically on metoclopramide for gastroparesis because they "didn't work". ADA diet. Soft. Lansoprazole 30 milligrams daily for GI prophylaxis Docusate sodium 100 mg twice a day for bowel regimen. Added Senokot 8.6 g twice a day, polyethylene glycol 17 g twice a day and lactulose 30 cc 4 times a day. Check KUB today Soapsuds enema FEN/RENAL: Acute kidney injury with unknown baseline creatinine CKD unknown stage Nephrolithiasis Left UJV obstruction with mild hydronephrosis Insert levy catheter for close monitoring of UOP s/p cardiac arrest. Monitor electrolytes and replace as clinically indicated. Mild transaminase elevation. Follow-up right upper quadrant ultrasound - revealed hepatic steatosis. Status post cholecystectomy. 1 dose of Lasix yesterday. Nuclear medicine renal scan within normal limits 12/04 ID: Urinalysis was obtained and demonstrates no evidence of UTI. Chest x-ray shows no infiltrate. Monitor for signs and symptoms of infection HEME: Leukocytosis Normocytic anemia History of factor V Leiden deficiency Monitor CBC daily. Follow trends. No indication for transfusion of blood products at this time We'll continue coags with heparin drip while immobile/increased risk for thrombus. ENDO: Diabetes mellitus Has been on low-dose insulin sliding scale before meals at bedtime. Previously on detemir 60 mg daily. Continue at 10 mill grams twice a day with sliding scale insulin/Novulin R every 4 hours high scale PROPH: Continue heparin drip. Provide DVT prophylaxis lansoprazole 30 milligrams daily for stress ulcer prophylaxis ACCESS: Right IJ central venous line placed 11/1016 #5 Family updated at bedside. Patient is full code. Level II follow-up. Patient is stable from a critical care medicine standpoint. Assign care to hospitalist in a.m. 12/10. Problem Qualifiers (1) CKD (chronic kidney disease): Qualified Codes: N18.9 - Chronic kidney disease, unspecified (2) HTN (hypertension): Qualified Codes: I10 - Essential (primary) hypertension (3) Obesity: (4) Diabetes mellitus: Qualified Codes: E11.52 - Type 2 diabetes mellitus with diabetic peripheral angiopathy with gangrene; Z79.4 - intermediate frame tender (current) use of insulin Mina Chavis MD Dec 09, 2016 13:10
--- NOTE | 2016-12-09 16:46 | RADRPT ---
EXAM DATE/TIME: 12/09/2016 15:49 [facility] COMPARISON: No previous studies available for comparison. INDICATIONS : Abdominal pain. MEDICAL HISTORY : Hypertension. Diabetes mellitus type 2. Coronary artery disease. SURGICAL HISTORY : Coronary artery stent. Appendectomy. Cholecystectomy. ENCOUNTER: Subsequent ACUITY: 1 week PAIN SCORE: 5/10 LOCATION: abdomen. FINDINGS: Supine view of the abdomen was performed. The abdominal bowel gas pattern is normal. No abnormal ma sses, calcifications, or organomegaly is seen. The osseous structures are unremarkable. There are pearson rgical clips in the right upper quadrant compatible with prior cholecystectomy. CONCLUSION: 1. No evidence of obstruction. Marquez Moser MD on December 09, 2016 at 16:44 Board Certified Radiologist. This report was verified electronically.
[2016-12-09 18:37] LABS: HEMATOCRIT 32.1 % (35.0-46.0); MEAN CELL VOLUME 87.7 FL (80.0-100.0); MEAN CORPUSCULAR HEMOGLOBIN 28.7 PG (27.0-34.0); MEAN CORPUSCULAR HGB CONC 32.7 % (32.0-36.0); PLATELET COUNT 300 TH/MM3 (150-450); RED BLOOD COUNT 3.67 MIL/MM3 (4.00-5.30); RED CELL DISTRIBUTION WIDTH 15.4 % (11.6-17.2); REVIEW FLAG FINAL; WHITE BLOOD COUNT 11.2 TH/MM3 (4.0-11.0)
[2016-12-09 18:52] LABS: BICARBONATE 31.7 MEQ/L (21.0-32.0); POTASSIUM 4.1 MEQ/L (3.5-5.1)
[2016-12-09] MEDS: ATORVASTATIN 80 MG TAB PO SCH (20:38)
[2016-12-09] MEDS: DOCUSATE SODIUM 50 MG/SENNA 8.6 MG TAB PO SCH (20:39)
[2016-12-10] VITALS (16 sets, daily range): BP systolic 129–178; BP diastolic 57–81; PULSE 68–98; RESP 16–22; TEMP 98.3–98.9; O2SAT 94–100
[2016-12-10] MEDS: RESP: ALBUTEROL 2.5 MG/IPRATROPIUM 0.5 MG NEB (SCH) NEB ×2 (03:46→08:52)
[2016-12-10] MEDS: INSULIN NovoLIN REGULAR SUPPLEMENTAL SCALE SQ SCH ×6 (04:00→23:34)
[2016-12-10 04:15] LABS: AUTOMATED NEUTROPHIL # 6.7 TH/MM3 (1.8-7.7); BASOPHIL # 0.1 TH/MM3 (0-0.2); BASOPHIL % 0.9 % (0.0-2.0); EOSINOPHIL # 0.2 TH/MM3 (0-0.4); HEMATOCRIT 31.6 % (35.0-46.0); HEMO FLAGS DIFF FINAL; LYMPH % 20.2 % (9.0-44.0); MEAN CELL VOLUME 87.1 FL (80.0-100.0); MEAN CORPUSCULAR HEMOGLOBIN 28.7 PG (27.0-34.0); MEAN CORPUSCULAR HGB CONC 32.9 % (32.0-36.0); NEUT % 67.9 % (16.0-70.0); PLATELET COUNT 301 TH/MM3 (150-450); RED BLOOD COUNT 3.63 MIL/MM3 (4.00-5.30); RED CELL DISTRIBUTION WIDTH 15.6 % (11.6-17.2); WHITE BLOOD COUNT 9.8 TH/MM3 (4.0-11.0)
[2016-12-10 04:26] LABS: BICARBONATE 33.4 MEQ/L (21.0-32.0)
[2016-12-10] MEDS: NYSTATIN 100,000 U/GM OINT 15 GM TUBE TOPICAL SCH ×3 (06:00→20:52)
[2016-12-10] MEDS: ARTIFICIAL TEARS OPTH SOLN 15 ML BTL EACH EYE SCH ×3 (06:00→20:51)
--- NOTE | 2016-12-10 06:30 | RADRPT ---
EXAM DATE/TIME: 12/10/2016 04:35 [facility] COMPARISON: CHEST SINGLE AP, December 09, 2016, 11:40. INDICATIONS : Evaluate for pnuemonia, post extubation MEDICAL HISTORY : Hypertension. Diabetes mellitus type II. SURGICAL HISTORY : Appendectomy. Cholecystectomy. Coronary artery stent ENCOUNTER: Subsequent ACUITY: 1 week PAIN SCORE: Non-responsive. LOCATION: Bilateral chest FINDINGS: There is a right internal jugular central line in place with the tip overlying the SVC. The heart siz e is within normal limits. There is some hazy density in the left perihilar region and at the right b ase. There is a prominent levocurvature of the lower thoracic and upper lumbar spine. CONCLUSION: Hazy density at the left perihilar and left base regions likely related to atelectasis or consolidati on. Freddy Gore MD on December 10, 2016 at 6:27 Board Certified Radiologist. This report was verified electronically.
[2016-12-10] MEDS: CHLORHEXIDINE 0.12% (ORAL KIT) 15 ML CUP MT SCH ×2 (08:00→20:00)
[2016-12-10] MEDS: LACTULOSE SYRUP 20 GM/30 ML CUP PO SCH ×4 (09:00→20:51)
[2016-12-10] MEDS: INSULIN DETEMIR 100 UNITS/ML VIAL SQ SCH ×2 (09:00→20:52)
[2016-12-10] MEDS: LANSOPRAZOLE SOLUTAB 30 MG TAB NG SCH (09:33)
[2016-12-10] MEDS: TICAGRELOR 90 MG TAB PO SCH ×2 (09:34→20:50)
[2016-12-10] MEDS: DOCUSATE SODIUM 50 MG/SENNA 8.6 MG TAB PO SCH ×2 (09:34→20:50)
[2016-12-10] MEDS: POLYETHYLENE GLYCOL 17 GM PKG PO SCH ×2 (09:34→20:51)
[2016-12-10] MEDS: ONDANSETRON HCL 4 MG/2 ML VIAL IV PUSH PRN ×3 (09:35→23:29)
[2016-12-10] MEDS: ACETAMINOPHEN 1000 MG/100 ML 100 ML IV PRN (09:35)
[2016-12-10] MEDS: hydrALAZINE HCL 20 MG/ML VIAL IV PUSH PRN (17:31)
[2016-12-10] MEDS: ATORVASTATIN 80 MG TAB PO SCH (20:50)
[2016-12-10] MEDS: ACETAMINOPHEN/HYDROcodone 325 MG/5 MG TAB PO PRN (21:01)
[2016-12-10] MEDS: LORazepam 0.5 MG TAB PO PRN (23:29)
[2016-12-11] VITALS (12 sets, daily range): BP systolic 118–166; BP diastolic 56–75; PULSE 74–86; RESP 10–29; TEMP 98.4–99.3; O2SAT 93–100
[2016-12-11] MEDS: INSULIN NovoLIN REGULAR SUPPLEMENTAL SCALE SQ SCH ×5 (04:00→22:12)
[2016-12-11 04:43] LABS: HEMATOCRIT 32.4 % (35.0-46.0); MEAN CELL VOLUME 87.6 FL (80.0-100.0); MEAN CORPUSCULAR HGB CONC 33.1 % (32.0-36.0); PLATELET COUNT 303 TH/MM3 (150-450); RED BLOOD COUNT 3.69 MIL/MM3 (4.00-5.30); RED CELL DISTRIBUTION WIDTH 15.3 % (11.6-17.2); REVIEW FLAG FINAL; WHITE BLOOD COUNT 10.6 TH/MM3 (4.0-11.0)
[2016-12-11] MEDS: ARTIFICIAL TEARS OPTH SOLN 15 ML BTL EACH EYE SCH ×3 (06:10→21:44)
[2016-12-11] MEDS: NYSTATIN 100,000 U/GM OINT 15 GM TUBE TOPICAL SCH ×3 (06:10→21:43)
[2016-12-11] MEDS: CHLORHEXIDINE 0.12% (ORAL KIT) 15 ML CUP MT SCH ×2 (08:00→20:00)
[2016-12-11] MEDS: LANSOPRAZOLE SOLUTAB 30 MG TAB NG SCH (08:43)
[2016-12-11] MEDS: TICAGRELOR 90 MG TAB PO SCH ×2 (08:44→21:41)
[2016-12-11] MEDS: DOCUSATE SODIUM 50 MG/SENNA 8.6 MG TAB PO SCH ×2 (08:44→21:41)
[2016-12-11] MEDS: LACTULOSE SYRUP 20 GM/30 ML CUP PO SCH ×4 (08:44→21:00)
[2016-12-11] MEDS: POLYETHYLENE GLYCOL 17 GM PKG PO SCH ×2 (08:44→21:00)
--- NOTE | 2016-12-11 12:35 | HHI.CCPN ---
Subjective Remarks/Hospital Course Note for 12/10/16: 51-year-old female with past medical history of coronary artery disease with stents, hypertension, diabetes, morbid obesity, PAD status post left BKA, CKD who originally arrived at [facility] emergency department on 12/01/16 with a one-day history of left lower quadrant pain. She had previously had a CT abdomen and pelvis with IV contrast at [facility] that was reportedly negative. On the CT abdomen and pelvis that was obtained at [place] had residual contrast in the left ureter. There was mild left hydrouretero-hydronephrosis. No ureteral stone was visible. Urology has evaluated and felt that this may represent a small ureteral stone which would likely pass spontaneously versus a UVJ stricture. Renogram was negative for obstruction on 12/04 and she was cleared for d/c by urology. Creatinine on admission was 1.73 and had down trended to 1.36. She was afebrile and urinalysis was negative for evidence of infection. [facility] responded to CODE BLUE. RN states that patient had gotten up with the tech to go to the bathroom and when she returned to the bed she began complaining of sudden onset of shortness of breath. She reportedly did not mention chest pain. She then became unresponsive and was in asystolic cardiac arrest and CPR was initiated. She had no IV access as multiple nurses had attempted to place a peripheral IV access prior to the arrest. She was intubated and had ROSC after 6 minutes. Glucose was greater than 200. She did not receive any ACLS meds due to lack of IV access despite ongoing attempts by nursing to place PIV. She obtained ROSC before intubation. She is in sinus rhythm in the 70s and hypertensive. CVL was placed. 12/06: Afebrile. Currently resting in bed in no acute distress. Negative MRI/ MRA brain yesterday. Evaluated by cardiology. They believe this is pulmonary relation. We'll CT her neck today. No Cuff leak on ET tube today. 12/07: Afebrile. Currently a PSV trial 09/30 at 40%. Awake and following commands. CT neck normal. Echocardiogram EF 60-65%. Will attempt extubation today at 10:30 with CMAC at bedside if no cuff leak after receiving dexamethasone 1 day and passes mechanical ventilation weaning parameters. no bowel movement 3 days 12/08: Afebrile. Will attempt extubation today with glide scope at bedside. No bowel movement today. Tolerating tube feeds. Subjective 12/09: Currently afebrile. On Ventimask at 35%. More awake and alert today. No bowel movement. 12/10: Airway widely patent. No stridor. Breathing comfortably. Objective Vital Signs Date Time Temp Pulse Resp B/P (MAP) Pulse Ox O2 Delivery O2 Flow Rate FiO2 12/11/16 10:00 86 12/11/16 08:00 Nasal Cannula 2.00 12/11/16 08:00 98.7 10 119/57 (77) 100 12/09/16 10:03 35 Intake and Output 12/11/16 12/11/16 12/12/16 08:00 16:00 00:00 Intake Total 480 ml Output Total 1600 ml Balance -1120 ml Result Diagram: 12/11/16 0430 12/10/16 0400 Imaging Last Impressions Chest X-Ray 12/09/16 0000 Signed Impressions: Service Date/Time: Friday, December 09, 2016 11:40 - CONCLUSION: Improving bilateral pulmonary infiltrates. Hill Carr MD Neck CT 12/06/16 0000 Signed Impressions: Service Date/Time: Tuesday, December 06, 2016 14:44 - CONCLUSION: 1. Unremarkable CT scan of the neck. No masses are identified. Nonspecific adenopathy Marquez Moser MD Upper Extremity Ultrasound 12/05/16 0000 Signed Impressions: Service Date/Time: Monday, December 05, 2016 16:07 - CONCLUSION: No evidence of superficial or deep venous thrombosis. Suboptimal visualization of the right subclavian vein do to central line. Jono Jose MD Neck Magnetic Resonance Angiography 12/05/16 0000 Signed Impressions: Service Date/Time: Monday, December 05, 2016 09:06 - CONCLUSION: 1. Left carotid: 2. There is mild narrowing at the origin of the left internal carotid this is estimated to be in the range of 20-30%% by NASCET criteria. 3. 4. Right carotid: 5. There is no hemodynamically significant carotid artery stenosis. 6. Both vertebral arteries are widely patent. Gus Iverson MD Lower Extremity Ultrasound 12/05/16 0000 Signed Impressions: Service Date/Time: Monday, December 05, 2016 08:08 - CONCLUSION: 1. No sonographic evidence for lower extremity DVT. Pierce Avendano MD Liver Ultrasound 12/05/16 Signed Impressions: Service Date/Time: Monday, December 05, 2016 07:57 - CONCLUSION: 1. Hepatomegaly with diffusely increased hepatic echogenicity consistent with hepatic steatosis versus medical liver disease. 2. Trace free fluid along the inferior hepatic margin. 3. Status post cholecystectomy with normal caliber common bile duct. Pierce Avendano MD Head Magnetic Resonance Angiography 12/05/16 Signed Impressions: Service Date/Time: Monday, December 05, 2016 09:06 - CONCLUSION: Normal examination. No evidence of aneurysm, AVM, vasculopathy or stenosis. Jono Jose MD CT Angiography 12/05/16 Signed Impressions: Service Date/Time: Monday, December 05, 2016 05:15 - CONCLUSION: No evidence of pulmonary embolism Freddy Montez MD Brain MRI 12/05/16 Signed Impressions: Service Date/Time: Monday, December 05, 2016 09:06 - CONCLUSION: No acute disease. No evidence of acute infarct, hemorrhage, mass or edema. Jono Jose MD Renal Scan w/Medication NM 12/04/16 Signed Impressions: Service Date/Time: Sunday, December 04, 2016 08:59 - CONCLUSION: There is no evidence for obstruction. John Iverson MD FACR Abdomen/Pelvis CT 12/01/16 0908 Signed Impressions: Service Date/Time: Thursday, December 01, 2016 09:43 - CONCLUSION: 1. Striated left nephrogram from recent prior contrast administration with associated mild left hydroureteronephrosis extending to the UVJ. A definite radiopaque ureteral calculus is not visualized although a very small calculus can be obscured by the dense contrast in the left ureter. Findings are most consistent with at least a partial left UVJ obstruction although differential consideration includes left sided pyelonephritis. Clinical correlation is recommended. Pierce Avendano MD Objective Remarks GENERAL: 51-year-old female who resting in bed. SKIN: Warm and dry. HEAD: Atraumatic. Normocephalic. EYES: Pupils equal and round, 2mm and reactive bilaterally. . No scleral icterus. No injection or drainage. ENT: No nasal bleeding or discharge. Mucous membranes pink and moist. NECK: Trachea midline. Obese. No thyromegaly CARDIOVASCULAR: RRR. S1, S2. No S4. Without murmurs RESPIRATORY: Diminished but essentially clear without wheezes rales or rhonchi GASTROINTESTINAL: Abdomen soft, non-tender, obese. Hypoactive bowel sounds are appreciated : Levy inserted and light myrna urine output. MSK: L leg s/p BKA with well healed incision scar. 1+ pitting pitting edema of all extremities. NEUROLOGICAL: Cranial nerves II through XII grossly intact. Strength is equal symmetric. Normal sensation. Line: Central Venous Catheter Location: Internal, Jugular A/P Problem List: (1) Peripheral neuropathy ICD Code: G62.9 - Polyneuropathy, unspecified Status: Chronic (2) Cardiac arrest ICD Code: I46.9 - Cardiac arrest, cause unspecified Status: Acute (3) Leukocytosis ICD Code: D72.829 - Elevated white blood cell count, unspecified Status: Acute (4) CKD (chronic kidney disease) ICD Code: N18.9 - Chronic kidney disease, unspecified Status: Chronic (5) HTN (hypertension) ICD Code: I10 - Essential (primary) hypertension Status: Chronic (6) Transaminitis ICD Code: R74.0 - Nonspecific elevation of levels of transaminase and lactic acid dehydrogenase [LDH] Status: Acute (7) Obesity ICD Code: E66.9 - Obesity, unspecified Status: Chronic (8) Diabetes mellitus ICD Code: E11.9 - Diabetes mellitus Status: Chronic (9) Hydroureter ICD Code: N13.4 - Hydroureter Status: Acute (10) CAD (coronary artery disease) ICD Code: I25.10 - Atherosclerotic heart disease of [place] coronary artery without angina pectoris (11) Gastroparesis ICD Code: K31.84 - Gastroparesis Status: Chronic (12) Respiratory failure, acute ICD Code: J96.00 - Acute respiratory failure, unspecified whether with hypoxia or hypercapnia Status: Acute (13) Hyperlipidemia ICD Code: E78.5 - Hyperlipidemia, unspecified Status: Chronic Assessment and Plan NEURO/PSYCH: Peripheral neuropathy/right lower extremity IV Ofirmev 1 g every 8 hours when necessary pain 125/fever [place] 5/25 one tablet every 6 hours. Pain 6-10 Follow commands Previously on lorazepam 0.5 mill grams a needed for anxiety RESP: Acute respiratory failure Probable DAE/pickwickian Currently on cooling mask at 35%. Wean to keep sats greater than equal to 92% Incentive spirometry while awake Albuterol/ipratropium aerosols every 6 hours with albuterol aerosols every 2 hours. Dyspnea Dexamethasone 4 mg every 6 hours [address] neck 12/06 no obstructive process CXR 12/09 - mild cardiomegaly. Improving Bilateral infiltrates CV: Asystolic cardiac arrest Coronary artery disease with prior stents ~ 2 years ago. History of hypertension Hyperlipidemia Peripheral arterial disease s/p L BKA Troponins negative Echocardiogram EF 60-65%. Ticagrelor 90 milligrams bid and ASA 81 daily. Will hold ASA while on therapeutic anticoagulation. Continue Atorvastatin 80 mg po qhs for now, continue to monitor transaminase and hold if indicated. 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 Believes this is pulmonary nature. Have signed off Holding furosemide 40 mg daily marginal renal status. Likely restart in a.m. Holding carvedilol 3.125 milligrams twice a day in light of borderline blood pressures GI: Morbid obesity Gastroparesis Elevated transaminases History of hepatitis A Patient is not chronically on metoclopramide for gastroparesis because they "didn't work". ADA diet. Soft. Lansoprazole 30 milligrams daily for GI prophylaxis Docusate sodium 100 mg twice a day for bowel regimen. Added Senokot 8.6 g twice a day, polyethylene glycol 17 g twice a day and lactulose 30 cc 4 times a day. Check KUB today Soapsuds enema FEN/RENAL: Acute kidney injury with unknown baseline creatinine CKD unknown stage Nephrolithiasis Left UJV obstruction with mild hydronephrosis Insert levy catheter for close monitoring of UOP s/p cardiac arrest. Monitor electrolytes and replace as clinically indicated. Mild transaminase elevation. Follow-up right upper quadrant ultrasound - revealed hepatic steatosis. Status post cholecystectomy. 1 dose of Lasix yesterday. Nuclear medicine renal scan within normal limits 12/04 ID: Urinalysis was obtained and demonstrates no evidence of UTI. Chest x-ray shows no infiltrate. Monitor for signs and symptoms of infection HEME: Leukocytosis Normocytic anemia History of factor V Leiden deficiency Monitor CBC daily. Follow trends. No indication for transfusion of blood products at this time We'll continue coags with heparin drip while immobile/increased risk for thrombus. ENDO: Diabetes mellitus Has been on low-dose insulin sliding scale before meals at bedtime. Previously on detemir 60 mg daily. Continue at 10 mill grams twice a day with sliding scale insulin/Novulin R every 4 hours high scale PROPH: Continue heparin drip. Provide DVT prophylaxis lansoprazole 30 milligrams daily for stress ulcer prophylaxis ACCESS: Right IJ central venous line placed 11/1016 #5 Family updated at bedside. Patient is full code. Overall impression: Improved. Problem Qualifiers (1) CKD (chronic kidney disease): Qualified Codes: N18.9 - Chronic kidney disease, unspecified (2) HTN (hypertension): Qualified Codes: I10 - Essential (primary) hypertension (3) Obesity: (4) Diabetes mellitus: Qualified Codes: E11.52 - Type 2 diabetes mellitus with diabetic peripheral angiopathy with gangrene; Z79.4 - correction (current) use of insulin Geronimo Rangel MD Dec 11, 2016 12:35
--- NOTE | 2016-12-11 12:37 | HHI.CCPN ---
Subjective Remarks/Hospital Course Note for 12/11/16: 51-year-old female with past medical history of coronary artery disease with stents, hypertension, diabetes, morbid obesity, PAD status post left BKA, CKD who originally arrived at [facility] emergency department on 12/01/16 with a one-day history of left lower quadrant pain. She had previously had a CT abdomen and pelvis with IV contrast at [facility] that was reportedly negative. On the CT abdomen and pelvis that was obtained at [place] had residual contrast in the left ureter. There was mild left hydrouretero-hydronephrosis. No ureteral stone was visible. Urology has evaluated and felt that this may represent a small ureteral stone which would likely pass spontaneously versus a UVJ stricture. Renogram was negative for obstruction on 12/04 and she was cleared for d/c by urology. Creatinine on admission was 1.73 and had down trended to 1.36. She was afebrile and urinalysis was negative for evidence of infection. [facility] responded to CODE BLUE. RN states that patient had gotten up with the tech to go to the bathroom and when she returned to the bed she began complaining of sudden onset of shortness of breath. She reportedly did not mention chest pain. She then became unresponsive and was in asystolic cardiac arrest and CPR was initiated. She had no IV access as multiple nurses had attempted to place a peripheral IV access prior to the arrest. She was intubated and had ROSC after 6 minutes. Glucose was greater than 200. She did not receive any ACLS meds due to lack of IV access despite ongoing attempts by nursing to place PIV. She obtained ROSC before intubation. She is in sinus rhythm in the 70s and hypertensive. CVL was placed. 12/06: Afebrile. Currently resting in bed in no acute distress. Negative MRI/ MRA brain yesterday. Evaluated by cardiology. They believe this is pulmonary relation. We'll CT her neck today. No Cuff leak on ET tube today. 12/07: Afebrile. Currently a PSV trial 09/30 at 40%. Awake and following commands. CT neck normal. Echocardiogram EF 60-65%. Will attempt extubation today at 10:30 with CMAC at bedside if no cuff leak after receiving dexamethasone 1 day and passes mechanical ventilation weaning parameters. no bowel movement 3 days 12/08: Afebrile. Will attempt extubation today with glide scope at bedside. No bowel movement today. Tolerating tube feeds. Subjective 12/09: Currently afebrile. On Ventimask at 35%. More awake and alert today. No bowel movement. 12/10: Airway widely patent. No stridor. Breathing comfortably. 12/11: Breathing comfortably. Transfer. Objective Vital Signs Date Time Temp Pulse Resp B/P (MAP) Pulse Ox O2 Delivery O2 Flow Rate FiO2 12/11/16 10:00 86 12/11/16 08:00 Nasal Cannula 2.00 12/11/16 08:00 98.7 10 119/57 (77) 100 12/09/16 10:03 35 Intake and Output 12/11/16 12/11/16 12/12/16 08:00 16:00 00:00 Intake Total 480 ml Output Total 1600 ml Balance -1120 ml Result Diagram: 12/11/16 0430 12/10/16 0400 Imaging Last Impressions Chest X-Ray 12/09/16 0000 Signed Impressions: Service Date/Time: Friday, December 09, 2016 11:40 - CONCLUSION: Improving bilateral pulmonary infiltrates. Hill Carr MD Neck CT 12/06/16 Signed Impressions: Service Date/Time: Tuesday, December 06, 2016 14:44 - CONCLUSION: 1. Unremarkable CT scan of the neck. No masses are identified. Nonspecific adenopathy Marquez Moser MD Upper Extremity Ultrasound 12/05/16 Signed Impressions: Service Date/Time: Monday, December 05, 2016 16:07 - CONCLUSION: No evidence of superficial or deep venous thrombosis. Suboptimal visualization of the right subclavian vein do to central line. Jono Jose MD Neck Magnetic Resonance Angiography 12/05/16 Signed Impressions: Service Date/Time: Monday, December 05, 2016 09:06 - CONCLUSION: 1. Left carotid: 2. There is mild narrowing at the origin of the left internal carotid this is estimated to be in the range of 20-30%% by NASCET criteria. 3. 4. Right carotid: 5. There is no hemodynamically significant carotid artery stenosis. 6. Both vertebral arteries are widely patent. Gus Iverson MD Lower Extremity Ultrasound 10/10/17 0000 Signed Impressions: Service Date/Time: Monday, December 05, 2016 08:08 - CONCLUSION: 1. No sonographic evidence for lower extremity DVT. Pierce Avendano MD Liver Ultrasound 12/05/16 Signed Impressions: Service Date/Time: Monday, December 05, 2016 07:57 - CONCLUSION: 1. Hepatomegaly with diffusely increased hepatic echogenicity consistent with hepatic steatosis versus medical liver disease. 2. Trace free fluid along the inferior hepatic margin. 3. Status post cholecystectomy with normal caliber common bile duct. Pierce Avendano MD Head Magnetic Resonance Angiography 12/05/16 Signed Impressions: Service Date/Time: Monday, December 05, 2016 09:06 - CONCLUSION: Normal examination. No evidence of aneurysm, AVM, vasculopathy or stenosis. Jono Jose MD CT Angiography 12/05/16 Signed Impressions: Service Date/Time: Monday, December 05, 2016 05:15 - CONCLUSION: No evidence of pulmonary embolism Freddy Montez MD Brain MRI 12/05/16 Signed Impressions: Service Date/Time: Monday, December 05, 2016 09:06 - CONCLUSION: No acute disease. No evidence of acute infarct, hemorrhage, mass or edema. Jono Jose MD Renal Scan w/Medication NM 12/04/16 Signed Impressions: Service Date/Time: Sunday, December 04, 2016 08:59 - CONCLUSION: There is no evidence for obstruction. John Iverson MD FACR Abdomen/Pelvis CT 12/01/16 0908 Signed Impressions: Service Date/Time: Thursday, December 01, 2016 09:43 - CONCLUSION: 1. Striated left nephrogram from recent prior contrast administration with associated mild left hydroureteronephrosis extending to the UVJ. A definite radiopaque ureteral calculus is not visualized although a very small calculus can be obscured by the dense contrast in the left ureter. Findings are most consistent with at least a partial left UVJ obstruction although differential consideration includes left sided pyelonephritis. Clinical correlation is recommended. Pierce Avendano MD Objective Remarks GENERAL: 51-year-old female who resting in bed. SKIN: Warm and dry. HEAD: Atraumatic. Normocephalic. EYES: Pupils equal and round, 2mm and reactive bilaterally. . No scleral icterus. No injection or drainage. ENT: No nasal bleeding or discharge. Mucous membranes pink and moist. NECK: Trachea midline. Obese. No thyromegaly CARDIOVASCULAR: RRR. S1, S2. No S4. Without murmurs RESPIRATORY: Diminished but essentially clear without wheezes rales or rhonchi GASTROINTESTINAL: Abdomen soft, non-tender, obese. Hypoactive bowel sounds are appreciated : Levy inserted and light myrna urine output. MSK: L leg s/p BKA with well healed incision scar. 1+ pitting pitting edema of all extremities. NEUROLOGICAL: Cranial nerves II through XII grossly intact. Strength is equal symmetric. Normal sensation. Line: Central Venous Catheter Location: Internal, Jugular A/P Problem List: (1) Peripheral neuropathy ICD Code: G62.9 - Polyneuropathy, unspecified Status: Chronic (2) Cardiac arrest ICD Code: I46.9 - Cardiac arrest, cause unspecified Status: Acute (3) Leukocytosis ICD Code: D72.829 - Elevated white blood cell count, unspecified Status: Acute (4) CKD (chronic kidney disease) ICD Code: N18.9 - Chronic kidney disease, unspecified Status: Chronic (5) HTN (hypertension) ICD Code: I10 - Essential (primary) hypertension Status: Chronic (6) Transaminitis ICD Code: R74.0 - Nonspecific elevation of levels of transaminase and lactic acid dehydrogenase [LDH] Status: Acute (7) Obesity ICD Code: E66.9 - Obesity, unspecified Status: Chronic (8) Diabetes mellitus ICD Code: E11.9 - Diabetes mellitus Status: Chronic (9) Hydroureter ICD Code: N13.4 - Hydroureter Status: Acute (10) CAD (coronary artery disease) ICD Code: I25.10 - Atherosclerotic heart disease of [place] coronary artery without angina pectoris (11) Gastroparesis ICD Code: K31.84 - Gastroparesis Status: Chronic (12) Respiratory failure, acute ICD Code: J96.00 - Acute respiratory failure, unspecified whether with hypoxia or hypercapnia Status: Acute (13) Hyperlipidemia ICD Code: E78.5 - Hyperlipidemia, unspecified Status: Chronic Assessment and Plan NEURO/PSYCH: Peripheral neuropathy/right lower extremity IV Ofirmev 1 g every 8 hours when necessary pain 125/fever [place] 5/25 one tablet every 6 hours. Pain 6-10 Follow commands Previously on lorazepam 0.5 mill grams a needed for anxiety RESP: Acute respiratory failure Probable DAE/pickwickian Currently on cooling mask at 35%. Wean to keep sats greater than equal to 92% Incentive spirometry while awake Albuterol/ipratropium aerosols every 6 hours with albuterol aerosols every 2 hours. Dyspnea Dexamethasone 4 mg every 6 hours [address] neck 12/06 no obstructive process CXR 12/09 - mild cardiomegaly. Improving Bilateral infiltrates CV: Asystolic cardiac arrest Coronary artery disease with prior stents ~ 2 years ago. History of hypertension Hyperlipidemia Peripheral arterial disease s/p L BKA Troponins negative Echocardiogram EF 60-65%. Ticagrelor 90 milligrams bid and ASA 81 daily. Will hold ASA while on therapeutic anticoagulation. Continue Atorvastatin 80 mg po qhs for now, continue to monitor transaminase and hold if indicated. 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 Believes this is pulmonary nature. Have signed off Holding furosemide 40 mg daily marginal renal status. Likely restart in a.m. Holding carvedilol 3.125 milligrams twice a day in light of borderline blood pressures GI: Morbid obesity Gastroparesis Elevated transaminases History of hepatitis A Patient is not chronically on metoclopramide for gastroparesis because they "didn't work". ADA diet. Soft. Lansoprazole 30 milligrams daily for GI prophylaxis Docusate sodium 100 mg twice a day for bowel regimen. Added Senokot 8.6 g twice a day, polyethylene glycol 17 g twice a day and lactulose 30 cc 4 times a day. Check KUB today Soapsuds enema FEN/RENAL: Acute kidney injury with unknown baseline creatinine CKD unknown stage Nephrolithiasis Left UJV obstruction with mild hydronephrosis Insert levy catheter for close monitoring of UOP s/p cardiac arrest. Monitor electrolytes and replace as clinically indicated. Mild transaminase elevation. Follow-up right upper quadrant ultrasound - revealed hepatic steatosis. Status post cholecystectomy. 1 dose of Lasix yesterday. Nuclear medicine renal scan within normal limits 12/04 ID: Urinalysis was obtained and demonstrates no evidence of UTI. Chest x-ray shows no infiltrate. Monitor for signs and symptoms of infection HEME: Leukocytosis Normocytic anemia History of factor V Leiden deficiency Monitor CBC daily. Follow trends. No indication for transfusion of blood products at this time We'll continue coags with heparin drip while immobile/increased risk for thrombus. ENDO: Diabetes mellitus Has been on low-dose insulin sliding scale before meals at bedtime. Previously on detemir 60 mg daily. Continue at 10 mill grams twice a day with sliding scale insulin/Novulin R every 4 hours high scale PROPH: Continue heparin drip. Provide DVT prophylaxis lansoprazole 30 milligrams daily for stress ulcer prophylaxis ACCESS: Right IJ central venous line placed 11/1016 #5 Family updated at bedside. Patient is full code. Overall impression: Improved. May transfer to floor. Problem Qualifiers (1) CKD (chronic kidney disease): Qualified Codes: N18.9 - Chronic kidney disease, unspecified (2) HTN (hypertension): Qualified Codes: I10 - Essential (primary) hypertension (3) Obesity: (4) Diabetes mellitus: Qualified Codes: E11.52 - Type 2 diabetes mellitus with diabetic peripheral angiopathy with gangrene; Z79.4 - shelter (current) use of insulin Geronimo Rangel MD Dec 11, 2016 12:37
[2016-12-11] MEDS: METOCLOPRAMIDE HCL 10 MG TAB PO SCH (15:23)
[2016-12-11] MEDS: FUROSEMIDE 40 MG TAB PO SCH (15:23)
[2016-12-11] MEDS ORDERED: INSULIN DETEMIR 60 UNIT SQ SCH (21:00)
[2016-12-11] MEDS: CARVEDILOL 3.125 MG TAB PO SCH (21:41)
[2016-12-11] MEDS: ATORVASTATIN 80 MG TAB PO SCH (21:41)
[2016-12-11] MEDS: LORazepam 0.5 MG TAB PO PRN (22:02)
[2016-12-11] MEDS: INSULIN DETEMIR 100 UNITS/ML VIAL SQ SCH (22:03)
[2016-12-11] MEDS: ACETAMINOPHEN/HYDROcodone 325 MG/5 MG TAB PO PRN (22:03)
[2016-12-12] VITALS (7 sets, daily range): BP systolic 113–146; BP diastolic 58–70; PULSE 76–86; RESP 18–22; TEMP 96.8–99; O2SAT 95–96
[2016-12-12] MEDS: INSULIN NovoLIN REGULAR SUPPLEMENTAL SCALE SQ SCH ×7 (01:33→23:54)
[2016-12-12] MEDS: NYSTATIN 100,000 U/GM OINT 15 GM TUBE TOPICAL SCH ×3 (05:15→20:59)
[2016-12-12] MEDS: ARTIFICIAL TEARS OPTH SOLN 15 ML BTL EACH EYE SCH ×3 (05:15→20:59)
[2016-12-12 05:25] LABS: BICARBONATE 36.4 MEQ/L (21.0-32.0); POTASSIUM 3.6 MEQ/L (3.5-5.1)
[2016-12-12] MEDS: CHLORHEXIDINE 0.12% (ORAL KIT) 15 ML CUP MT SCH ×2 (08:00→20:00)
[2016-12-12] MEDS: METOCLOPRAMIDE HCL 10 MG TAB PO SCH (08:39)
[2016-12-12] MEDS: ASPIRIN EC 81 MG TABEC PO SCH (08:39)
[2016-12-12] MEDS: DOCUSATE SODIUM 50 MG/SENNA 8.6 MG TAB PO SCH ×3 (08:40→21:00)
[2016-12-12] MEDS: POLYETHYLENE GLYCOL 17 GM PKG PO SCH ×2 (08:40→21:00)
[2016-12-12] MEDS: FUROSEMIDE 40 MG TAB PO SCH (08:40)
[2016-12-12] MEDS: LANSOPRAZOLE SOLUTAB 30 MG TAB NG SCH (08:40)
[2016-12-12] MEDS: LACTULOSE SYRUP 20 GM/30 ML CUP PO SCH ×5 (08:40→21:00)
[2016-12-12] MEDS: TICAGRELOR 90 MG TAB PO SCH ×2 (08:40→21:12)
[2016-12-12] MEDS: CARVEDILOL 3.125 MG TAB PO SCH ×2 (08:40→20:58)
--- NOTE | 2016-12-12 09:23 | HHI.PR ---
Subjective Remarks Patient inbed. Appears in nad. She si able to eat no n/v/d/c. No cough. No n/v/d /c. Denies fever or chills. Objective Vitals Vital Signs Date Time Temp Pulse Resp B/P (MAP) Pulse Ox O2 Delivery O2 Flow Rate FiO2 12/12/16 05:48 96 Nasal Cannula 2.00 12/12/16 05:01 Nasal Cannula 2.00 12/12/16 00:00 98.8 81 18 140/65 (90) 96 12/11/16 21:40 Nasal Cannula 2.00 12/11/16 20:00 99.3 81 18 135/65 (88) 93 12/11/16 18:00 78 12/11/16 16:00 98.4 86 24 166/74 (104) 96 12/11/16 16:00 86 12/11/16 16:00 Nasal Cannula 2.00 12/11/16 14:00 86 12/11/16 12:00 82 12/11/16 12:00 98.8 82 29 145/75 (98) 97 12/11/16 12:00 Nasal Cannula 2.00 12/11/16 10:00 86 I/O 12/11/16 12/11/16 12/11/16 12/12/16 12/12/16 12/12/16 06:59 14:59 22:59 06:59 14:59 22:59 Intake Total 480 ml 420 ml Output Total 1600 ml 1650 ml 800 ml Balance -1120 ml -1230 ml -800 ml Intake Oral 480 ml 420 ml Output Urine Total 1600 ml 1650 ml 800 ml # Bowel Movements 0 1 Result Diagram: 12/11/16 0430 12/12/16 0440 Imaging Last Impressions Chest X-Ray 12/10/16 1215 Signed Impressions: Service Date/Time: Saturday, December 10, 2016 04:35 - CONCLUSION: Hazy density at the left perihilar and left base regions likely related to atelectasis or consolidation. Freddy Gore MD Abdomen X-Ray 12/09/16 0000 Signed Impressions: Service Date/Time: Friday, December 09, 2016 15:49 - CONCLUSION: 1. No evidence of obstruction. Marquez Moser MD Neck CT 12/06/16 0000 Signed Impressions: Service Date/Time: Tuesday, December 06, 2016 14:44 - CONCLUSION: 1. Unremarkable CT scan of the neck. No masses are identified. Nonspecific adenopathy Marquez Moser MD Upper Extremity Ultrasound 12/05/16 Signed Impressions: Service Date/Time: Monday, December 05, 2016 16:07 - CONCLUSION: No evidence of superficial or deep venous thrombosis. Suboptimal visualization of the right subclavian vein do to central line. Jono Jose MD Neck Magnetic Resonance Angiography 12/05/16 Signed Impressions: Service Date/Time: Monday, December 05, 2016 09:06 - CONCLUSION: 1. Left carotid: 2. There is mild narrowing at the origin of the left internal carotid this is estimated to be in the range of 20-30%% by NASCET criteria. 3. 4. Right carotid: 5. There is no hemodynamically significant carotid artery stenosis. 6. Both vertebral arteries are widely patent. Gus Iverson MD Lower Extremity Ultrasound 12/05/16 Signed Impressions: Service Date/Time: Monday, December 05, 2016 08:08 - CONCLUSION: 1. No sonographic evidence for lower extremity DVT. Pierce Avendano MD Liver Ultrasound 12/05/16 Signed Impressions: Service Date/Time: Monday, December 05, 2016 07:57 - CONCLUSION: 1. Hepatomegaly with diffusely increased hepatic echogenicity consistent with hepatic steatosis versus medical liver disease. 2. Trace free fluid along the inferior hepatic margin. 3. Status post cholecystectomy with normal caliber common bile duct. Pierce Avendano MD Head Magnetic Resonance Angiography 12/05/16 Signed Impressions: Service Date/Time: Monday, December 05, 2016 09:06 - CONCLUSION: Normal examination. No evidence of aneurysm, AVM, vasculopathy or stenosis. Jono Jose MD CT Angiography 12/05/16 Signed Impressions: Service Date/Time: Monday, December 05, 2016 05:15 - CONCLUSION: No evidence of pulmonary embolism Freddy Montez MD Brain MRI 12/05/16 Signed Impressions: Service Date/Time: Monday, December 05, 2016 09:06 - CONCLUSION: No acute disease. No evidence of acute infarct, hemorrhage, mass or edema. Jono Jose MD Renal Scan w/Medication NM 12/04/16 0000 Signed Impressions: Service Date/Time: Sunday, December 04, 2016 08:59 - CONCLUSION: There is no evidence for obstruction. John Iverson MD FACR Abdomen/Pelvis CT 12/01/16 0908 Signed Impressions: Service Date/Time: Thursday, December 01, 2016 09:43 - CONCLUSION: 1. Striated left nephrogram from recent prior contrast administration with associated mild left hydroureteronephrosis extending to the UVJ. A definite radiopaque ureteral calculus is not visualized although a very small calculus can be obscured by the dense contrast in the left ureter. Findings are most consistent with at least a partial left UVJ obstruction although differential consideration includes left sided pyelonephritis. Clinical correlation is recommended. Pierce Avendano MD Objective Remarks GENERAL: This is a well-nourished, well-developed patient, in no apparent distress. CARDIOVASCULAR: Regular rate and regular rhythm without murmurs, gallops, or rubs. RESPIRATORY: Clear to auscultation. Breath sounds equal bilaterally. No wheezes , rales, or rhonchi. GASTROINTESTINAL: Abdomen soft, some left flank tenderness, nondistended. Normal, active bowel sounds MUSCULOSKELETAL: Extremities without clubbing, cyanosis, or edema. NEURO: Alert & Oriented x4 to person, place, time, situation. Moves all ext x4 Line: Central Venous Catheter Location: Internal, Jugular A/P Problem List: (1) Ureteral obstruction ICD Code: N13.5 - Crossing vessel and stricture of ureter without hydronephrosis Status: Acute Assessment and Plan Left hydronephrosis urology follow-up appreciated- no surgical intervention at this time. renogram neg cleared by urology, to follow-up as OP. continue with pain control and antiemetics as needed. -acute kidney injury- likely post-renal- improving- continue IV fluid- -CAD- s/p stent placement- resume antiplatelets soon - resumed BB -diabetes mellitus; hold long acting insulin- accu-check with SSI -DVT prophylaxis with SCD's Discharge Planning Improved,planm to DC to SNF. CM ff for DC plan. To f/u as OP with PCP and consultants. Luci Pope MD Dec 12, 2016 09:23
[2016-12-12] MEDS: ONDANSETRON HCL 4 MG/2 ML VIAL IV PUSH PRN (09:35)
[2016-12-12] MEDS ORDERED: PREV30TA3 NG (09:46)
[2016-12-12] MEDS ORDERED: LORA-373 PO (09:46)
[2016-12-12] MEDS ORDERED: NYST100084 TOPICAL (09:46)
[2016-12-12] MEDS ORDERED: SENN1TAB PO (09:46)
--- NOTE | 2016-12-12 09:47 | HHI.DS ---
Discharge Summary Admission Date Dec 01, 2016 at 11:53 Discharge Date: Dec 13, 2016 Admitting Diagnosis ureteral colic, flank pain, intractable pain (1) Ureteral obstruction ICD Code: N13.5 - Crossing vessel and stricture of ureter without hydronephrosis Diagnosis: Principal Status: Acute Procedures intubation/extubation Brief History - From Admission patient is a 51 y/o female with history of CAD, hypertension, diabetes, who presented to ER with left flank pain. she says that the pain started yesterday. pain was severe in intensity with no radiation. pain was associated with nausea but with no fever, dysuria or gross hematuria. she says that she went to [facility], had a CT of the abdomen with contrast and was discharged home with Keflex for possible UTI. she says that her pain got worse to the extent that she decided to come back to ER. CBC/BMP: 12/11/16 0430 12/12/16 0440 Significant Findings Laboratory Tests Test 12/09/16 18:17 12/10/16 04:00 12/11/16 04:30 12/12/16 04:40 White Blood Count 11.2 TH/MM3 (4.0-11.0) Red Blood Count 3.67 MIL/MM3 (4.00-5.30) 3.63 MIL/MM3 (4.00-5.30) 3.69 MIL/MM3 (4.00-5.30) Hemoglobin 10.5 GM/DL (11.6-15.3) 10.4 GM/DL (11.6-15.3) 10.7 GM/DL (11.6-15.3) Hematocrit 32.1 % (35.0-46.0) 31.6 % (35.0-46.0) 32.4 % (35.0-46.0) Random Glucose 197 MG/DL (74-106) 136 MG/DL (74-106) 165 MG/DL (74-106) Anion Gap 4 MEQ/L (5-15) 4 MEQ/L (5-15) Estimat Glomerular Filtration Rate 74 ML/MIN (>89) 72 ML/MIN (>89) 71 ML/MIN (>89) Mean Platelet Volume 6.9 FL (7.0-11.0) 6.7 FL (7.0-11.0) Monocytes (%) (Auto) 9.0 % (0.0-8.0) Phosphorus Level 2.4 MG/DL (2.5-4.9) Carbon Dioxide Level 33.4 MEQ/L (21.0-32.0) 36.4 MEQ/L (21.0-32.0) Imaging Last Impressions Chest X-Ray 12/10/16 1215 Signed Impressions: Service Date/Time: Saturday, December 10, 2016 04:35 - CONCLUSION: Hazy density at the left perihilar and left base regions likely related to atelectasis or consolidation. Freddy Gore MD Abdomen X-Ray 12/09/16 Signed Impressions: Service Date/Time: Friday, December 09, 2016 15:49 - CONCLUSION: 1. No evidence of obstruction. Marquez Moser MD Neck CT 12/06/16 Signed Impressions: Service Date/Time: Tuesday, December 06, 2016 14:44 - CONCLUSION: 1. Unremarkable CT scan of the neck. No masses are identified. Nonspecific adenopathy Marquez Moser MD Upper Extremity Ultrasound 12/05/16 Signed Impressions: Service Date/Time: Monday, December 05, 2016 16:07 - CONCLUSION: No evidence of superficial or deep venous thrombosis. Suboptimal visualization of the right subclavian vein do to central line. Jono Jose MD Neck Magnetic Resonance Angiography 12/05/16 Signed Impressions: Service Date/Time: Monday, December 05, 2016 09:06 - CONCLUSION: 1. Left carotid: 2. There is mild narrowing at the origin of the left internal carotid this is estimated to be in the range of 20-30%% by NASCET criteria. 3. 4. Right carotid: 5. There is no hemodynamically significant carotid artery stenosis. 6. Both vertebral arteries are widely patent. Gus Iverson MD Lower Extremity Ultrasound 12/05/16 Signed Impressions: Service Date/Time: Monday, December 05, 2016 08:08 - CONCLUSION: 1. No sonographic evidence for lower extremity DVT. Pierce Avendano MD Liver Ultrasound 12/05/16 Signed Impressions: Service Date/Time: Monday, December 05, 2016 07:57 - CONCLUSION: 1. Hepatomegaly with diffusely increased hepatic echogenicity consistent with hepatic steatosis versus medical liver disease. 2. Trace free fluid along the inferior hepatic margin. 3. Status post cholecystectomy with normal caliber common bile duct. Pierce Avendano MD Head Magnetic Resonance Angiography 12/05/16 Signed Impressions: Service Date/Time: Monday, December 05, 2016 09:06 - CONCLUSION: Normal examination. No evidence of aneurysm, AVM, vasculopathy or stenosis. Jono Jose MD CT Angiography 12/05/16 Signed Impressions: Service Date/Time: Monday, December 05, 2016 05:15 - CONCLUSION: No evidence of pulmonary embolism Freddy Montez MD Brain MRI 12/05/16 Signed Impressions: Service Date/Time: Monday, December 05, 2016 09:06 - CONCLUSION: No acute disease. No evidence of acute infarct, hemorrhage, mass or edema. Jono Jose MD Renal Scan w/Medication NM 12/04/16 Signed Impressions: Service Date/Time: Sunday, December 04, 2016 08:59 - CONCLUSION: There is no evidence for obstruction. John Iverson MD FACR Abdomen/Pelvis CT 12/01/16 0908 Signed Impressions: Service Date/Time: Thursday, December 01, 2016 09:43 - CONCLUSION: 1. Striated left nephrogram from recent prior contrast administration with associated mild left hydroureteronephrosis extending to the UVJ. A definite radiopaque ureteral calculus is not visualized although a very small calculus can be obscured by the dense contrast in the left ureter. Findings are most consistent with at least a partial left UVJ obstruction although differential consideration includes left sided pyelonephritis. Clinical correlation is recommended. Pierce Avendano MD PE at Discharge GENERAL: This is a well-nourished, well-developed patient, in no apparent distress. CARDIOVASCULAR: Regular rate and regular rhythm without murmurs, gallops, or rubs. RESPIRATORY: Clear to auscultation. Breath sounds equal bilaterally. No wheezes , rales, or rhonchi. GASTROINTESTINAL: Abdomen soft, some left flank tenderness, nondistended. Normal, active bowel sounds MUSCULOSKELETAL: Extremities without clubbing, cyanosis, or edema. NEURO: Alert & Oriented x4 to person, place, time, situation. Moves all ext x4 Pt update on day of discharge Patient in nad. Eating breakfast . No pain. No cough. Feels improved. Plan to go to [facility] Course 51-year-old female with past medical history of coronary artery disease with stents, hypertension, diabetes, morbid obesity, PAD status post left BKA, CKD who originally arrived at [facility] emergency department on 12/01/16 with a one-day history of left lower quadrant pain. She had previously had a CT abdomen and pelvis with IV contrast at [facility] that was reportedly negative. On the CT abdomen and pelvis that was obtained at [place] had residual contrast in the left ureter. There was mild left hydrouretero-hydronephrosis. No ureteral stone was visible. Urology has evaluated and felt that this may represent a small ureteral stone which would likely pass spontaneously versus a UVJ stricture. Renogram was negative for obstruction on 12/04 and she was cleared for d/c by urology. Creatinine on admission was 1.73 and had down trended to 1.36. She was afebrile and urinalysis was negative for evidence of infection. [facility] responded to [facility]. RN states that patient had gotten up with the tech to go to the bathroom and when she returned to the bed she began complaining of sudden onset of shortness of breath. She reportedly did not mention chest pain. She then became unresponsive and was in asystolic cardiac arrest and CPR was initiated. She had no IV access as multiple nurses had attempted to place a peripheral IV access prior to the arrest. She was intubated and had ROSC after 6 minutes. Glucose was greater than 200. She did not receive any ACLS meds due to lack of IV access despite ongoing attempts by nursing to place PIV. She obtained ROSC before intubation. She is in sinus rhythm in the 70s and hypertensive. CVL was placed. Patient with acute respiratory failure requiring intubation. Resolved. Patient with DAE/ sleep apnea. Tp f/u as OP with pulm for sleep study. Morbid obesity BMI 44.6, advice dietary changes, f/u as OP with psychiatric aide and surgeon for eval of bariatric surgery Left hydronephrosis urology follow-up appreciated- no surgical intervention at this time. renogram neg cleared by urology, to follow-up as OP. Received pain control and antiemetics as needed. Acute kidney injury- likely post-renal- improving- Received IV fluid- Improved. , CAD- s/p stent placement- resume antiplatelets soon - resumed BB Diabetes mellitus; hold long acting insulin- accu-check with SSI, resume meds at DC Morbid obesity BMI 44.6, advice dietary changes, f/u as OP with psychiatric aide and surgeon for eval of bariatric surgery Improved, DC to SNF in stable condition. To f/u as OP with PCP and consultants. Pt Condition on Discharge: Stable Discharge Disposition: Discharge to SNF Discharge Time: > 30 minutes Discharge Instructions DIET: Follow Instructions for: Heart Healthy Diet, Diabetic Diet Speech Therapy-Diet Recommends: Soft Activities you can perform: Regular-No Restrictions Follow up Referrals: Cardiology - 1 Week PCP Follow-up - 2-3 Days Pulmonology - 1 Week Surgical - 1 Week with Jason Valladares MD Urology - 1 Week with Bobo Briseno MD New Medications: Lansoprazole ODT (Prevacid Solutab ODT) 30 Mg Tab 30 MG NG DAILY for gerd for 30 Days, #30 TAB Mix with 4 ml water before giving via tube. Nystatin Topical (Nystatin Topical) 100,000 unit/gm Oint 1 APPLIC TOPICAL Q8HR for fungal infection for 7 Days, TUBE Sennosides-Docusate Sodium (Senna Plus 8.6-50 mg) 8.6 Mg-50 Mg Tab 1 TAB PO BID for Constipation, #60 TAB Continued Medications: Aspirin DR (Aspirin EC) 81 Mg Tabdr 81 MG PO DAILY, TAB 0 Refills Atorvastatin (Atorvastatin) 80 Mg Tab 80 MG PO HS for Cholesterol Management, #30 TAB 0 Refills Carvedilol (Carvedilol) 3.125 Mg Tab 3.125 MG PO BID, #60 TAB 0 Refills Furosemide (Furosemide) 40 Mg Tab 40 MG PO DAILY, #30 TAB 0 Refills Insulin Aspart Inj (Novolog Flexpen Inj) 300 Unit/3 Ml Pen 1 UNITS SQ for Blood Sugar Management, #1 PEN 0 Refills Insulin Detemir Inj (Levemir Flextouch Pen Inj) 300 unit/3 ML Pen 60 UNITS SQ HS for Blood Sugar Management, PEN 0 Refills Lorazepam (Lorazepam) 0.5 Mg Tab 0.5 MG PO DAILY PRN for ANXIETY, #10 TAB 0 Refills (This prescription has been renewed) Metoclopramide (Metoclopramide) 5 Mg Tab 5 MG PO DAILY, TAB 0 Refills Ondansetron (Ondansetron) 4 Mg Tab 4 MG PO Ticagrelor (Brilinta) 90 Mg Tab 90 MG PO BID for Blood Clot Prevention, #60 TAB 0 Refills Luci Pope MD Dec 12, 2016 09:47
[2016-12-12] MEDS: ATORVASTATIN 80 MG TAB PO SCH (20:58)
[2016-12-12] MEDS: INSULIN DETEMIR 100 UNITS/ML VIAL SQ SCH (20:59)
[2016-12-12] MEDS: LORazepam 0.5 MG TAB PO PRN (21:06)
[2016-12-13] VITALS: BP 99/54; PULSE 79; RESP 20; TEMP 97.6; O2SAT 96
[2016-12-13] MEDS: INSULIN NovoLIN REGULAR SUPPLEMENTAL SCALE SQ SCH ×3 (03:33→12:00)
[2016-12-13 04:00] VITALS: BP 120/58; PULSE 77; RESP 20; TEMP 98.7; O2SAT 97
[2016-12-13] MEDS: NYSTATIN 100,000 U/GM OINT 15 GM TUBE TOPICAL SCH ×2 (05:08→12:38)
[2016-12-13] MEDS: ARTIFICIAL TEARS OPTH SOLN 15 ML BTL EACH EYE SCH ×2 (05:08→12:38)
[2016-12-13 08:00] VITALS: BP 105/54; PULSE 75; RESP 17; TEMP 97.9; O2SAT 96
[2016-12-13] MEDS: DOCUSATE SODIUM 50 MG/SENNA 8.6 MG TAB PO SCH (08:05)
[2016-12-13] MEDS: TICAGRELOR 90 MG TAB PO SCH (08:05)
[2016-12-13] MEDS: POLYETHYLENE GLYCOL 17 GM PKG PO SCH (08:05)
[2016-12-13] MEDS: FUROSEMIDE 40 MG TAB PO SCH (08:05)
[2016-12-13] MEDS: LANSOPRAZOLE SOLUTAB 30 MG TAB NG SCH (08:06)
[2016-12-13] MEDS: LACTULOSE SYRUP 20 GM/30 ML CUP PO SCH ×2 (08:06→12:38)
[2016-12-13] MEDS: ASPIRIN EC 81 MG TABEC PO SCH (08:06)
[2016-12-13] MEDS: METOCLOPRAMIDE HCL 10 MG TAB PO SCH (08:06)
[2016-12-13] MEDS: CARVEDILOL 3.125 MG TAB PO SCH (08:06)
[2016-12-13] MEDS: ACETAMINOPHEN/HYDROcodone 325 MG/5 MG TAB PO PRN (08:18)
[2016-12-13 09:18] VITALS: RESP 18
== END 2016-12-13 14:06 | DRG 693 ==
LOC: NEPE 08:31 → NEDA 11:53 → N04B 15:09 → N03B 12-04 23:28 → N07B 12-11 18:57
PROVIDERS: ADMIT Hospitalist; ATTEND Hospitalist
PROC: 5A1945Z Respiratory Ventilation, 24-96 Consecutive Hours (ICD-10-PCS; principal; 2016-12-05)
PROC: 5A12012 Performance of Cardiac Output, Single, Manual (ICD-10-PCS; 2016-12-05)
PROC: 0BH17EZ Insertion of Endotracheal Airway into Trachea, Via Natural or Artificial Opening (ICD-10-PCS; 2016-12-05)
PROC: 0T9B70Z Drainage of Bladder with Drainage Device, Via Natural or Artificial Opening (ICD-10-PCS; 2016-12-05)
PROC: B543ZZA Ultrasonography of Right Jugular Veins, Guidance (ICD-10-PCS; 2016-12-05)
PROC: 02HV33Z Insertion of Infusion Device into Superior Vena Cava, Percutaneous Approach (ICD-10-PCS; 2016-12-05)
DX: N13.1 Hydronephrosis with ureteral stricture, not elsewhere classified (principal); J96.00 Acute respiratory failure, unspecified whether with hypoxia or hypercapnia; N17.9 Acute kidney failure, unspecified; K31.84 Gastroparesis; E11.52 Type 2 diabetes mellitus with diabetic peripheral angiopathy with gangrene; E11.43 Type 2 diabetes mellitus with diabetic autonomic (poly)neuropathy; Z68.41 Body mass index [BMI] 40.0-44.9, adult; E66.2 Morbid (severe) obesity with alveolar hypoventilation; E11.22 Type 2 diabetes mellitus with diabetic chronic kidney disease; I25.10 Atherosclerotic heart disease of native coronary artery without angina pectoris; N18.9 Chronic kidney disease, unspecified; I12.9 Hypertensive chronic kidney disease with stage 1 through stage 4 chronic kidney disease, or unspecified chronic kidney disease; D64.9 Anemia, unspecified; E86.0 Dehydration; E78.5 Hyperlipidemia, unspecified; K76.0 Fatty (change of) liver, not elsewhere classified; I51.7 Cardiomegaly; I25.2 Old myocardial infarction; F41.9 Anxiety disorder, unspecified; Z79.4 Long term (current) use of insulin; Z88.0 Allergy status to penicillin; Z88.1 Allergy status to other antibiotic agents; Z95.5 Presence of coronary angioplasty implant and graft; Z89.512 Acquired absence of left leg below knee; Z23 Encounter for immunization
CPT/HCPCS: 31500; 36600; 70490; 70544; 70547; 70551; 71010; 71275; 74000; 74176; 76705; 78708; 80048; 80053; 81001; 82550; 82805; 82948; 83605; 83690; 83735; 84100; 84443; 84484; 84702; 85025; 85027; 85379; 85384; 85610; 85730; 87040; 87070; 87205; 90686; 92950; 93005; 93306; 93970; 94002; 94003; 94150; 94640; 94664; 95819; 96361; 96374; 96375; A9539; J0131; J0360; J1100; J1170; J1644; J1815; J1940; J2212; J2250; J2270; J2405; J3010; J3475; J7030; J7120; P9045; Q2038; Q9967

== ENCOUNTER 2016-12-27 13:57 | Inpatient (IN) | payer OTHER, MEDICAID ==
[~2016-12-27] VITALS: Ht 157.5 cm; Wt 102.0 kg
[~2016-12-27 13:57] MED LIST changes: +ASPI81TA11 PO; +ATOR1TAB18 PO; -BACI500O61 TOP; +BRIL90TA PO; -CALC250 PO; +CARV3.12 PO; -CHOL50006 PO; -DOCU100T9 PO; -DOXY100 PO; -FIORIC PO; -FLUC200T63 PO; +FURO40TA PO; -GABA300 PO; -HEPA10KP SQ; +INSU1INJ5 SQ; -LACTG PO; -LANTUS2P SC; +LORA-373 PO; -LORTA5 PO; +METO5TAB PO; -NEPHRO PO; +NOVOINJ3 SQ; -NOVOLOGP2 SQ; -NOVOLOGSS SQ; +NYST100084 TOPICAL; -NYSTT TOPICAL; +ONDA1TAB16 PO; -OXYC1TAB PO; -POLY119S PO; +PREV30TA3 NG; -RANI150 PO; -ROCE1INJ IV; +SENN1TAB PO; -ZINC220 PO
[2016-12-27 13:58] VITALS: BP 159/77; PULSE 92; RESP 18; TEMP 98.9; O2SAT 93
[2016-12-27 14:57] LABS: AUTOMATED NEUTROPHIL # 9.1 TH/MM3 (1.8-7.7); BASOPHIL % 0.3 % (0.0-2.0); EOSINOPHIL # 0.1 TH/MM3 (0-0.4); EOSINOPHIL % 0.8 % (0.0-4.0); HEMATOCRIT 41.8 % (35.0-46.0); HEMOGLOBIN 13.7 GM/DL (11.6-15.3); LYMPHOCYTE # 2.4 TH/MM3 (1.0-4.8); MEAN CELL VOLUME 88.6 FL (80.0-100.0); MEAN CORPUSCULAR HEMOGLOBIN 29.2 PG (27.0-34.0); MEAN CORPUSCULAR HGB CONC 32.9 % (32.0-36.0); MEAN PLATELET VOLUME 7.4 FL (7.0-11.0); MONO % 6.5 % (0.0-8.0); MONOCYTE # 0.8 TH/MM3 (0-0.9); NEUT % 73.4 % (16.0-70.0); PLATELET COUNT 374 TH/MM3 (150-450); RED BLOOD COUNT 4.71 MIL/MM3 (4.00-5.30); RED CELL DISTRIBUTION WIDTH 15.4 % (11.6-17.2); WHITE BLOOD COUNT 12.4 TH/MM3 (4.0-11.0)
[2016-12-27] MEDS ORDERED: SODIUM CHLOR 0.9% 1000 ML INJ 1,000 ML IV SCH (14:59)
[2016-12-27 15:00] VITALS: O2SAT 94
[2016-12-27] MEDS ORDERED: SODIUM CHLORIDE 0.9% FLUSH 10 ML FLUSH IV FLUSH PRN (15:00)
[2016-12-27] MEDS ORDERED: MORPHINE SULFATE 4 MG/ML INJ IV PUSH ONE ×2 (15:00→17:00)
[2016-12-27] MEDS ORDERED: ONDANSETRON HCL 4 MG/2 ML VIAL IVP ONE (15:00)
--- NOTE | 2016-12-27 15:09 | PD ---
HPI Chief Complaint: Abdominal Pain Time Seen by Provider: 14:48 Travel History International Travel<30 days: No Contact w/Intl Traveler<30days: No Traveled to known affect area: No History of Present Illness HPI 51-year-old female past medical history of CAD, hypertension, diabetes, appendectomy, cholecystectomy, hysterectomy, left BKA presents to the emergency department for evaluation of left lower quadrant abdominal pain that started today, but has been worsening throughout the day. Patient was admitted on December 01, 2016 and discharged December 13, 2016. She states this was for similar pain. She had a renogram which was negative for obstruction on December 04. She was cleared by urology for discharge. However, just before discharge, she went to a systolic cardiac arrest and was intubated. The patient states that the abdominal pain has been gone since discharge. She has been having shortness of breath since discharge and was has been seeing a cheesemaker helper. She denies any fevers or chills. She denies any chest pain. Patient reports nausea, no vomiting. No constipation or diarrhea. She had a normal bowel movement this morning. No blood in her stool. Patient states that it was never found out why she was having abdominal pain or why she went into cardiac arrest. The patient states that her segmental paver installer Dr. Reeves, wants to be consulted if she is admitted again. She denies any history of nephrolithiasis. PFSH Past Medical History Hx Anticoagulant Therapy: Yes Arthritis: Yes Asthma: No Autoimmune Disease: No Anxiety: No Depression: No Heart Rhythm Problems: No Cancer: No Cardiovascular Problems: Yes High Cholesterol: Yes Chemotherapy: No Chest Pain: No Congestive Heart Failure: No COPD: No Cerebrovascular Accident: No Diabetes: Yes Endocrine: Yes (diabetes) GERD: No Glaucoma: No Genitourinary: Yes Headaches: Yes Hepatitis: Yes (HEPATITIS A) Hiatal Hernia: No Hypertension: No Immune Disorder: No Kidney Stones: Yes (This admission) Musculoskeletal: Yes Neurologic: Yes (LOWER EXTREMITY NEUROPATHY) Psychiatric: No Reproductive: Yes (HYST ) Respiratory: Yes Migraines: Yes (Feriocet) Radiation Therapy: No Renal Failure: No Seizures: No Sickle Cell Disease: No Sleep Apnea: No Thyroid Disease: No Ulcer: No : 1 Para: 1 Dilation and Curettage (D&C): Yes Past Surgical History Abdominal Surgery: No (Gallbladder removed, ) AICD: No Arteriovenous Shunt: No Cardiac Surgery: No Section: Yes Ear Surgery: No Endocrine Surgery: No Eye Surgery: No Genitourinary Surgery: No Gynecologic Surgery: Yes (TOTAL HYST) Hysterectomy: Yes (09/27/2009) Insulin Pump: No Joint Replacement: Yes (Pin in foot) Oral Surgery: No Pacemaker: No Thoracic Surgery: No Other Surgery: Yes (LEFT FOOT AMPUTATION ) Social History Alcohol Use: No Tobacco Use: No Substance Use: No Allergies-Medications (Allergen,Severity, Reaction): Coded Allergies: cefaclor (Unverified Allergy, Severe, HIVES, 12/01/16) erythromycin base (Unverified Allergy, Severe, HIVES, 12/01/16) levofloxacin (Unverified Allergy, Severe, HIVES, 12/01/16) penicillin G (Unverified Allergy, Severe, HIVES, 12/01/16) amoxicillin (Verified Allergy, Unknown, 12/01/16) promethazine (Verified Allergy, Unknown, 12/01/16) Reported Meds & Prescriptions Reported Meds & Active Scripts Active Senna Plus 8.6-50 mg (Sennosides-Docusate Sodium) 8.6 Mg-50 Mg Tab 1 Tab PO BID Prevacid Solutab ODT (Lansoprazole) 30 Mg Tab 30 Mg NG DAILY 30 Days Mix with 4 ml water before giving via tube. Nystatin Topical 100,000 unit/gm Oint 1 Applic TOPICAL Q8HR 7 Days Lorazepam 0.5 Mg Tab 0.5 Mg PO DAILY PRN Reported Novolog Flexpen Inj (Insulin Aspart) 300 Unit/3 Ml Pen 1 Units SQ Levemir Flextouch Pen Inj (Insulin Detemir) 300 unit/3 ML Pen 60 Units SQ HS Carvedilol 3.125 Mg Tab 3.125 Mg PO BID Furosemide 40 Mg Tab 40 Mg PO DAILY Atorvastatin (Atorvastatin Calcium) 80 Mg Tab 80 Mg PO HS Aspirin EC (Aspirin) 81 Mg Tabdr 81 Mg PO DAILY Metoclopramide (Metoclopramide HCl) 5 Mg Tab 5 Mg PO DAILY Brilinta (Ticagrelor) 90 Mg Tab 90 Mg PO BID Review of Systems Except as stated in HPI: all other systems reviewed are Neg Physical Exam Narrative GENERAL: Well-nourished, well-developed obese female patient, afebrile. SKIN: Focused skin assessment warm/dry. HEAD: Normocephalic. Atraumatic. EYES: No scleral icterus. No injection or drainage. NECK: Supple, trachea midline. No JVD or lymphadenopathy. CARDIOVASCULAR: Regular rate and rhythm without murmurs, gallops, or rubs. RESPIRATORY: Breath sounds equal bilaterally. No accessory muscle use. Lungs sounds are clear to auscultation. GASTROINTESTINAL: Abdomen obese, tender to left lower quadrant to palpation. MUSCULOSKELETAL: No cyanosis, or edema. Patient has left BKA. BACK: Nontender without obvious deformity. No CVA tenderness. Data Data Last Documented VS Vital Signs Date Time Temp Pulse Resp B/P (MAP) Pulse Ox O2 Delivery O2 Flow Rate FiO2 12/27/16 15:00 94 Room Air 12/27/16 13:58 98.9 92 18 Orders Orders Complete Blood Count With Diff (12/27/16 14:06) Comprehensive Metabolic Panel (12/27/16 14:06) Lipase (12/27/16 14:06) Prothrombin Time / Inr (Pt) (12/27/16 14:06) Act Partial Throm Time (Ptt) (12/27/16 14:06) Urinalysis - C+S If Indicated (12/27/16 14:06) Ct Abd/Pel W/O Iv Contrast (12/27/16 14:59) Iv Access Insert/Monitor (12/27/16 14:59) Ecg Monitoring (12/27/16 14:59) Oximetry (12/27/16 14:59) Morphine Inj (Morphine Inj) (12/27/16 15:00) Ondansetron Inj (Zofran Inj) (12/27/16 15:00) Sodium Chlor 0.9% 1000 Ml Inj (Ns 1000 M (12/27/16 14:59) Sodium Chloride 0.9% Flush (Ns Flush) (12/27/16 15:00) Electrocardiogram (12/27/16 14:59) Chest, Single Ap (12/27/16 14:59) Cath For Specimen (12/27/16 16:33) Ketorolac Inj (Toradol Inj) (12/27/16 17:00) Morphine Inj (Morphine Inj) (12/27/16 17:00) Labs Laboratory Tests Test 12/27/16 14:25 12/27/16 16:00 White Blood Count 12.4 TH/MM3 Red Blood Count 4.71 MIL/MM3 Hemoglobin 13.7 GM/DL Hematocrit 41.8 % Mean Corpuscular Volume 88.6 FL Mean Corpuscular Hemoglobin 29.2 PG Mean Corpuscular Hemoglobin Concent 32.9 % Red Cell Distribution Width 15.4 % Platelet Count 374 TH/MM3 Mean Platelet Volume 7.4 FL Neutrophils (%) (Auto) 73.4 % Lymphocytes (%) (Auto) 19.0 % Monocytes (%) (Auto) 6.5 % Eosinophils (%) (Auto) 0.8 % Basophils (%) (Auto) 0.3 % Neutrophils # (Auto) 9.1 TH/MM3 Lymphocytes # (Auto) 2.4 TH/MM3 Monocytes # (Auto) 0.8 TH/MM3 Eosinophils # (Auto) 0.1 TH/MM3 Basophils # (Auto) 0.0 TH/MM3 CBC Comment DIFF FINAL Differential Comment Prothrombin Time 11.0 SEC Prothromb Time International Ratio 1.0 RATIO Activated Partial Thromboplast Time 24.8 SEC Blood Urea Nitrogen 25 MG/DL Creatinine 1.48 MG/DL Random Glucose 145 MG/DL Total Protein 7.5 GM/DL Albumin 3.4 GM/DL Calcium Level 9.5 MG/DL Alkaline Phosphatase 170 U/L Aspartate Amino Transf (AST/SGOT) 33 U/L Alanine Aminotransferase (ALT/SGPT) 45 U/L Total Bilirubin 0.5 MG/DL Sodium Level 141 MEQ/L Potassium Level 3.6 MEQ/L Chloride Level 102 MEQ/L Carbon Dioxide Level 29.5 MEQ/L Anion Gap 10 MEQ/L Estimat Glomerular Filtration Rate 37 ML/MIN Lipase 175 U/L Urine Color LIGHT-YELLOW Urine Turbidity CLEAR Urine pH 5.5 Urine Specific [place] 1.007 Urine Protein NEG mg/dL Urine Glucose (UA) NEG mg/dL Urine Ketones NEG mg/dL Urine Occult Blood NEG Urine Nitrite NEG Urine Bilirubin NEG Urine Urobilinogen LESS THAN 2.0 MG/DL Urine Leukocyte Esterase NEG Urine RBC 2 /hpf Urine WBC LESS THAN 1 /hpf Urine Squamous Epithelial Cells 1 /hpf Microscopic Urinalysis Comment CULT NOT INDICATED MDM Medical Decision Making Medical Screen Exam Complete: Yes Emergency Medical Condition: Yes Medical Record Reviewed: Yes Interpretation(s) CT abdomen/pelvis - CONCLUSION: 1 mm stone left UVJ with minimal perinephric stranding. Remaining 1 mm stone in the left kidney. chest x-ray - compensated cardiomegaly, otherwise negative. Differential Diagnosis Diverticulitis versus UTI versus nephrolithiasis versus hydronephrosis versus pancreatitis Narrative Course 51-year-old female presents to the emergency department for left lower quadrant abdominal pain that started today and has been worsening throughout the day. Patient states similar symptoms with recent admission and subsequent cardiac arrest. EKG, CBC, CMP, lipase, UA, PTT, PT/INR are ordered and pending. Chest x-ray and CT abdomen/pelvis without contrast are ordered and pending. Patient is given normal saline 1 L IV bolus, Zofran 4 mg IV, morphine 4 mg IV. EKG shows sinus rhythm, no acute ST changes. CBC shows leukocytosis 12.4. CMP shows BUN 25, creatinine 1.48, glucose 145, alkaline phosphatase 170. Lipase is 175. UA is negative for acute infection. Coags are unremarkable. Chest x- ray shows compensated cardiomegaly, otherwise negative. CT abdomen/pelvis shows 1 mm stone left UVJ with minimal perinephric stranding; Remaining 1 mm stone in the left kidney. Patient still reports 10/10 abdominal pain. Patient is given Toradol 30 mg IV and Morphine 4 mg IV. Patient will be admitted for 23 hour observation for intractable abdominal pain. Dr. House accepted admission. Diagnosis Primary Impression: Intractable abdominal pain Admitting Information Admitting Physician Requests: Observation Ellen Erickson Dec 27, 2016 15:09
[2016-12-27 15:15] LABS: ALBUMIN 3.4 GM/DL (3.4-5.0); ALT (GPT) 45 U/L (10-53); AST (GOT) 33 U/L (15-37); BICARBONATE 29.5 MEQ/L (21.0-32.0); BLOOD UREA NITROGEN 25 MG/DL (7-18); CALCIUM 9.5 MG/DL (8.5-10.1); CHLORIDE 102 MEQ/L (98-107); CREATININE 1.48 MG/DL (0.50-1.00); GLOMERULAR FILTRATION RATE 37 ML/MIN (>89); GLUCOSE,RANDOM 145 MG/DL (74-106); LIPASE 175 U/L (73-393); SODIUM (NA) 141 MEQ/L (136-145)
[2016-12-27 15:17] LABS: ALKALINE PHOSPHATASE 170 U/L (45-117); TOTAL BILIRUBIN ADULT 0.5 MG/DL (0.2-1.0); TOTAL PROTEIN 7.5 GM/DL (6.4-8.2)
--- NOTE | 2016-12-27 15:38 | RADRPT ---
EXAM DATE/TIME: 12/27/2016 15:18 [facility] COMPARISON: CHEST SINGLE AP, December 10, 2016, 4:35. INDICATIONS : Shortness of breath. MEDICAL HISTORY : Hypertension. Diabetes mellitus type II. SURGICAL HISTORY : Appendectomy. Cholecystectomy. Coronary artery stent. ENCOUNTER: Subsequent ACUITY: 3 days PAIN SCORE: 0/10 LOCATION: chest FINDINGS: The lungs are clear. The heart is minimally enlarged. The pulmonary vascularity is normal. There is n o evidence for infiltrate or failure. The portion of the bony skeleton visualized is unremarkable. CONCLUSION: Compensated cardiomegaly otherwise negative Board Certified Radiologist. This report was verified electronically.
--- NOTE | 2016-12-27 15:42 | RADRPT ---
EXAM DATE/TIME: 12/27/2016 15:20 [facility] COMPARISON: CT ABDOMEN & PELVIS W/O CONTRAST, December 01, 2016, 9:43. INDICATIONS : Left lower quadrant pain today ORAL CONTRAST: No oral contrast ingested. RADIATION DOSE: 22.78 CTDIvol (mGy) MEDICAL HISTORY : Cardiovascular disease. Diabetes mellitus type 1. SURGICAL HISTORY : Hysterectomy. Cholecystectomy. ENCOUNTER: Initial ACUITY: 1 day PAIN SCALE: 10/10 LOCATION: Left lower quadrant TECHNIQUE: Volumetric scanning of the abdomen and pelvis was performed. Using automated exposure control and ad justment of the mA and/or kV according to patient size, radiation dose was kept as low as reasonably achievable to obtain optimal diagnostic quality images. DICOM format image data is available electro nically for review and comparison. FINDINGS: LOWER LUNGS: The visualized lower lungs are clear. LIVER: Homogeneous density without lesion. There is no dilation of the biliary tree. No calcified gallston es. SPLEEN: Normal size without lesion. PANCREAS: Within normal limits. KIDNEYS: 1 mm calcification lower pole left kidney there is mild perinephric stranding. As the prominent uret er extending down to the UVJ only there is a1 mm stone evident. ADRENAL GLANDS: Within normal limits. VASCULAR: There is no aortic aneurysm. BOWEL/MESENTERY: The stomach, small bowel, and colon demonstrate no acute abnormality. There is no free intraperitone al air or fluid. ABDOMINAL WALL: Within normal limits. RETROPERITONEUM: There is no lymphadenopathy. BLADDER: No wall thickening or mass. REPRODUCTIVE: Within normal limits. INGUINAL: There is no lymphadenopathy or hernia. MUSCULOSKELETAL: Within normal limits for patient age. CONCLUSION: 1 mm stone left UVJ with minimal perinephric stranding. Remaining 1 mm stone in the left kidney. John Iverson MD FACR on December 27, 2016 at 15:37 Board Certified Radiologist. This report was verified electronically.
[2016-12-27 16:15] VITALS: BP 139/73; PULSE 89; RESP 16; O2SAT 96
[2016-12-27 16:54] LABS: BILIRUBIN, URINE NEG (NEG); BLOOD, URINE NEG (NEG); GLUCOSE,URINE NEG (NEG); KETONE, URINE NEG (NEG); NITRITE,URINE NEG (NEG); PH, URINE 5.5 (5.0-8.5); SQUAMOUS EPITHELIAL CELL URINE 1 /hpf (0-5); URINE COLOR LIGHT-YELLOW (YELLW/STRAW); URINE LEUKOCYTE ESTERASE NEG (NEG)
[2016-12-27] MEDS ORDERED: KETOROLAC TROMETHAMINE 30 MG/ML (IVP) VIAL IV PUSH ONE (17:00)
[2016-12-27] MEDS ORDERED: HYDR-3533 PO (17:21)
[2016-12-27] MEDS ORDERED: PREV30CA11 PO (17:21)
[2016-12-27] MEDS ORDERED: DOXY100C PO (17:21)
--- NOTE | 2016-12-27 17:28 | HHI.HP ---
HPI Service [facility] Hospitalists Primary Care Physician Flash [place] M.D. Admission Diagnosis intractable abdominal pain Chief Complaint: LLQ abd pain Travel History International Travel<30 Days: No Contact w/Intl Traveler <30 Da: No Traveled to Known Affected Are: No History of Present Illness Mrs. Robertson is a 51 y/o WF with CAD, diabetes, and HTN who presented to the ED at [facility] on 12/27/16 with complaints of LLQ abd pain, that started earlier today around 11:30 this morning. She reports that this pain is similar to pain she had 1 month ago. Pt was admitted from December 01, 2016 to December 13, 2016 with LLQ/left flank pain. She had a renogram which was negative for obstruction on December 04. She was cleared by urology for discharge. However, just before discharge, she went into asystolic cardiac arrest and was intubated. Pt improved clinically and was discharged to rehab. The patient states that the abdominal pain has been gone since discharge. Pt saw her PCP last week and was given Doxycycline for her "chest congestion" and some redness on her right ankle where she sustained a cut from a catheter bag while in rehab per the pt. She has also been taking Mucinex BID. She has been having issues with a dry cough and "raspy voice" since her intubation and has been seeing a prison guard , Dr. Hager, two days ago. Pt was given Breo Elipta to start. She has an appt for sleep study next month. She denies any fevers or chills. She feels that the chest congestion is a bit better. She denies any chest pain. Patient reports nausea, but denies any vomiting. Patient states that it was never found out why she was having abdominal pain or why she went into cardiac arrest. The patient states that she was seen by her mechanical facilities technician, Dr. Reeves, yesterday and she states that she was recommended to have a Holter monitor placed. Pt reports that she had a normal BM this morning. Denies any constipation or diarrhea. No reported melena or BRBPR. Denies any dysuria, urinary frequency or hematuria. Review of Systems Constitutional: DENIES: Fever, Chills Eyes: DENIES: Vision loss Ears, nose, mouth, throat: DENIES: Hearing loss Respiratory: COMPLAINS OF: Cough, DENIES: Shortness of breath Cardiovascular: DENIES: Chest pain, Palpitations, Syncope Gastrointestinal: COMPLAINS OF: Abdominal pain, DENIES: Black stools, Bloody stools, Constipation, Diarrhea, Nausea, Vomiting Genitourinary: DENIES: Urinary frequency, Urinary incontinence, Urgency, Dysuria Musculoskeletal: DENIES: Joint pain, Back pain, Neck pain Integumentary: DENIES: Rash Neurologic: DENIES: Headache Psychiatric: DENIES: Confusion Past Family Social History Past Medical History CAD Hypertension Diabetes mellitus Hx of endometriosis Gastroparesis Hx of esophageal stricture Past Surgical History Cardiac stent placement in February 2015 Appendectomy Cholecystectomy JULIA with BSO Left BKA Colonoscopy, last done in 1998 EGD with dilation in 08/2016 Reported Medications Senna Plus 8.6-50 mg (Sennosides-Docusate Sodium) 8.6 Mg-50 Mg Tab 1 Tab PO BID Lorazepam 0.5 Mg Tab 0.5 Mg PO DAILY PRN Lortab (Hydrocodone-Acetaminophen) 5-325 Mg Tab 1 Tab PO Q3HR PRN Doxycycline Hyclate 100 Mg Cap 100 Mg PO Q12HR 10 Days (started 6 days ago) Prevacid (Lansoprazole) 30 Mg Capdr 30 Mg PO DAILY Novolog Flexpen Inj (Insulin Aspart) 300 Unit/3 Ml Pen 10 Units SQ TID With sliding scale Levemir Flextouch Pen Inj (Insulin Detemir) 300 unit/3 ML Pen 60 Units SQ HS Carvedilol 3.125 Mg Tab 3.125 Mg PO BID Furosemide 40 Mg Tab 40 Mg PO DAILY PRN Atorvastatin (Atorvastatin Calcium) 80 Mg Tab 80 Mg PO HS Aspirin EC (Aspirin) 81 Mg Tabdr 81 Mg PO DAILY Metoclopramide (Metoclopramide HCl) 5 Mg Tab 5 Mg PO DAILY Brilinta (Ticagrelor) 90 Mg Tab 90 Mg PO BID Breo Ellipta i puff daily, started 2 days prior to admission. Allergies: Coded Allergies: cefaclor (Unverified Allergy, Severe, HIVES, 12/01/16) erythromycin base (Unverified Allergy, Severe, HIVES, 12/01/16) levofloxacin (Unverified Allergy, Severe, HIVES, 12/01/16) penicillin G (Unverified Allergy, Severe, HIVES, 12/01/16) amoxicillin (Verified Allergy, Unknown, 12/01/16) promethazine (Verified Allergy, Unknown, 12/01/16) Family History Denies any family hx of GI related malignancy Social History Denies any alcohol, tobacco or illicit drug use Physical Exam Vital Signs Vital Signs Date Time Temp Pulse Resp B/P (MAP) Pulse Ox O2 Delivery O2 Flow Rate FiO2 12/27/16 16:15 89 16 139/73 (95) 96 Room Air 12/27/16 15:00 94 Room Air 12/27/16 13:58 98.9 92 18 159/77 (104) 93 Room Air Physical Exam GENERAL: This is a well-nourished, well-developed patient, in no apparent distress. SKIN: No rashes, ecchymoses or lesions. Cool and dry. HEENT: Atraumatic. Normocephalic. No temporal or scalp tenderness. No scleral icterus. Airway patent. NECK: Trachea midline, supple, nontender. CARDIO: Regular RESP: CTA bilaterally. No wheezes, rales, or rhonchi. ABD: +BS, soft, mildly distended. mild LLQ tenderness. No guarding. EXT: Extremities without clubbing, cyanosis, or edema. NEURO: Awake and alert. Motor and sensory grossly within normal limits. Normal speech. Laboratory Laboratory Tests Test 12/27/16 14:25 12/27/16 16:00 White Blood Count 12.4 Red Blood Count 4.71 Hemoglobin 13.7 Hematocrit 41.8 Mean Corpuscular Volume 88.6 Mean Corpuscular Hemoglobin 29.2 Mean Corpuscular Hemoglobin Concent 32.9 Red Cell Distribution Width 15.4 Platelet Count 374 Mean Platelet Volume 7.4 Neutrophils (%) (Auto) 73.4 Lymphocytes (%) (Auto) 19.0 Monocytes (%) (Auto) 6.5 Eosinophils (%) (Auto) 0.8 Basophils (%) (Auto) 0.3 Neutrophils # (Auto) 9.1 Lymphocytes # (Auto) 2.4 Monocytes # (Auto) 0.8 Eosinophils # (Auto) 0.1 Basophils # (Auto) 0.0 CBC Comment DIFF FINAL Differential Comment Prothrombin Time 11.0 Prothromb Time International Ratio 1.0 Activated Partial Thromboplast Time 24.8 Blood Urea Nitrogen 25 Creatinine 1.48 Random Glucose 145 Total Protein 7.5 Albumin 3.4 Calcium Level 9.5 Alkaline Phosphatase 170 Aspartate Amino Transf (AST/SGOT) 33 Alanine Aminotransferase (ALT/SGPT) 45 Total Bilirubin 0.5 Sodium Level 141 Potassium Level 3.6 Chloride Level 102 Carbon Dioxide Level 29.5 Anion Gap 10 Estimat Glomerular Filtration Rate 37 Lipase 175 Urine Color LIGHT-YELLOW Urine Turbidity CLEAR Urine pH 5.5 Urine Specific [place] 1.007 Urine Protein NEG Urine Glucose (UA) NEG Urine Ketones NEG Urine Occult Blood NEG Urine Nitrite NEG Urine Bilirubin NEG Urine Urobilinogen LESS THAN 2.0 Urine Leukocyte Esterase NEG Urine RBC 2 Urine WBC LESS THAN 1 Urine Squamous Epithelial Cells 1 Microscopic Urinalysis Comment CULT NOT INDICATED Result Diagram: 12/27/16 1425 12/27/[address] Abd/pelvis W/O IV Contrast (12/27/16) - 1mm stone left UVJ with minimal perinephritic stranding - Remaining 1mm stone in the left kidney Septic Shock Reassessment Heart: Regular rate and rhythm Lungs: Clear Skin: Warm Caprini VTE Risk Assessment Caprini VTE Risk Assessment: Mod/High Risk (score >= 2) Caprini Risk Assessment Model Point Value = 1 Point Value = 2 Point Value = 3 Point Value = 5 Age 41-60 Minor surgery BMI > 25 kg/m2 Swollen legs Varicose veins or History of unexplained or recurrent spontaneous Oral contraceptives or hormone replacement Sepsis (< 1 month) Serious lung disease, including pneumonia (< 1 month) Abnormal pulmonary function Acute myocardial infarction Congestive heart failure (< 1 month) History of inflammatory bowel disease Medical patient at bed rest Age 61-74 Arthroscopic surgery Major open surgery (> 45 min) Laparoscopic surgery (> 45 min) Malignancy Confined to bed (> 72 hours) Immobilizing plaster cast Central venous access Age >= 75 History of VTE Family history of VTE Factor V Leiden Prothrombin [id number] Lupus anticoagulant Anticardiolipin antibodies Elevated serum homocysteine Heparin-induced thrombocytopenia Other congenital or acquired thrombophilia Stroke (< 1 month) Elective arthroplasty Hip, pelvis, or leg fracture Acute spinal cord injury (< 1 month) Prophylaxis Regimen Total Risk Factor Score Risk Level Prophylaxis Regimen 0-1 Low Early ambulation 2 Moderate Order ONE of the following: *Sequential Compression Device (SCD) *Heparin 5000 units SQ BID 3-4 Higher Order ONE of the following medications: *Heparin 5000 units SQ TID *Enoxaparin/Lovenox 40 mg SQ daily (WT < 150 kg, CrCl > 30 mL/min) *Enoxaparin/Lovenox 30 mg SQ daily (WT < 150 kg, CrCl > 10-29 mL/min) *Enoxaparin/Lovenox 30 mg SQ BID (WT < 150 kg, CrCl > 30 mL/min) AND/OR *Sequential Compression Device (SCD) 5 or more Highest Order ONE of the following medications: *Heparin 5000 units SQ TID (Preferred with Epidurals) *Enoxaparin/Lovenox 40 mg SQ daily (WT < 150 kg, CrCl > 30 mL/min) *Enoxaparin/Lovenox 30 mg SQ daily (WT < 150 kg, CrCl > 10-29 mL/min) *Enoxaparin/Lovenox 30 mg SQ BID (WT < 150 kg, CrCl > 30 mL/min) AND *Sequential Compression Device (SCD) Assessment and Plan Problem List: (1) LLQ abdominal pain ICD Codes: R10.32 - Left lower quadrant pain Status: Acute Plan: - Pt is 51 y/o WF with CAD, diabetes, and HTN who presented to the ED at [facility] on 12/27/16 with complaints of LLQ abd pain, that started earlier today around 11:30 this morning. She reports that this pain is similar to pain she had 1 month ago. - Pt was admitted from December 01, 2016 to December 13, 2016 with LLQ/left flank pain. She had a renogram which was negative for obstruction on December 04. She was cleared by urology for discharge. However, just before discharge, she went into asystolic cardiac arrest and was intubated. Pt improved clinically and was discharged to rehab. The patient states that the abdominal pain has been gone since discharge until today - Noncontrasted CT Abd/pelvis in the ED noted 1mm stone left UVJ with minimal perinephritic stranding and remaining 1mm stone in the left kidney - Etiology for LLQ pain is unclear, possibly related to perinephritic stranding vs. musculoskeletal related to recent coughing vs. mild diverticulitis that is not yet noted on CT on noncontrasted study and the pt had recently been on antibiotics vs. other. - Consult Urology given findings on CT scan - Check Renal US with doppler - Consult GI - If WBC count still elevated tomorrow, consider adding Levaquin and Flagyl - Pts last colonoscopy was in 1998 per the pt - Pain control PRN - IVF - Diet as tolerated - Supportive care - DVT prophylaxis (2) Acute kidney injury ICD Codes: N17.9 - Acute kidney failure, unspecified Status: Acute Plan: - IVF - Monitor labs (3) Leukocytosis ICD Codes: D72.829 - Elevated white blood cell count, unspecified Status: Acute (4) HTN (hypertension) ICD Codes: I10 - Essential (primary) hypertension Status: Chronic Plan: - Home meds continued (5) Cardiac arrest ICD Codes: I46.9 - Cardiac arrest, cause unspecified Status: Resolved Plan: - Pt previously went into asystolic cardiac arrest and was intubated during recent admission in 11/2016. - Patient states that it was never found out why she was having abdominal pain or why she went into cardiac arrest. - Pt was seen by Dr. Reeves yesterday as an outpt and is planned to have Holter Monitor evaluation - Pt is requesting that she be seen by her Web Applications Administrator, Dr. Reeves during this admission. (6) Diabetes mellitus ICD Codes: E11.9 - Diabetes mellitus Status: Chronic Plan: - NovoLog SSI - Levemir 30 units BID - Accu checks (7) Hyperlipidemia ICD Codes: E78.5 - Hyperlipidemia, unspecified Status: Chronic Problem Qualifiers (1) Diabetes mellitus: Sera Oreilly Dec 27, 2016 17:28
[2016-12-27] MEDS ORDERED: LORazepam 0.5 MG TAB PO PRN (18:15)
[2016-12-27] MEDS ORDERED: ACETAMINOPHEN 325 MG TAB PO PRN (18:15)
[2016-12-27] MEDS ORDERED: ONDANSETRON HCL 4 MG/2 ML VIAL IV PRN (18:15)
[2016-12-27] MEDS ORDERED: MORPHINE SULFATE 4 MG/ML INJ IV PUSH PRN (18:15)
[2016-12-27] MEDS ORDERED: PILL SPLITTER OTHER PRN (18:45)
[2016-12-27 18:50] VITALS: BP 119/61; PULSE 84; RESP 24; TEMP 98.7; O2SAT 92
[2016-12-27] MEDS: SODIUM CHLOR 0.9% 1000 ML INJ 1,000 ML IV SCH (19:24)
[2016-12-27 19:47] VITALS: BP 135/68; PULSE 83; RESP 18; TEMP 98; O2SAT 95
[2016-12-27] MEDS: INSULIN ASPART SUPPLEMENTAL SCALE SQ SCH (21:00)
[2016-12-27] MEDS: INSULIN DETEMIR 100 UNITS/ML VIAL SQ SCH (21:12)
[2016-12-27] MEDS: ATORVASTATIN 80 MG TAB PO SCH (21:12)
[2016-12-27] MEDS: CARVEDILOL 3.125 MG TAB PO SCH (21:12)
[2016-12-27] MEDS: TICAGRELOR 90 MG TAB PO SCH (21:45)
[2016-12-27 23:59] VITALS: BP 93/55; PULSE 77; RESP 20; TEMP 96.3; O2SAT 93
[2016-12-28] VITALS (8 sets, daily range): BP systolic 93–130; BP diastolic 48–62; PULSE 66–91; RESP 16–20; TEMP 95.9–98.9; O2SAT 91–97
[2016-12-28] MEDS: ACETAMINOPHEN/HYDROcodone 325 MG/7.5 MG TAB PO PRN ×4 (00:07→23:30)
[2016-12-28 06:54] LABS: BICARBONATE 28.2 MEQ/L (21.0-32.0); CALCIUM 8.3 MG/DL (8.5-10.1); CREATININE 1.95 MG/DL (0.50-1.00)
[2016-12-28 06:55] LABS: AUTOMATED NEUTROPHIL # 6.3 TH/MM3 (1.8-7.7); BASOPHIL % 0.4 % (0.0-2.0); EOSINOPHIL # 0.1 TH/MM3 (0-0.4); EOSINOPHIL % 1.1 % (0.0-4.0); HEMATOCRIT 33.2 % (35.0-46.0); HEMOGLOBIN 10.9 GM/DL (11.6-15.3); LYMPH % 30.7 % (9.0-44.0); LYMPHOCYTE # 3.3 TH/MM3 (1.0-4.8); MEAN CELL VOLUME 89.2 FL (80.0-100.0); MEAN CORPUSCULAR HEMOGLOBIN 29.2 PG (27.0-34.0); MEAN CORPUSCULAR HGB CONC 32.8 % (32.0-36.0); MEAN PLATELET VOLUME 7.2 FL (7.0-11.0); MONO % 7.9 % (0.0-8.0); MONOCYTE # 0.8 TH/MM3 (0-0.9); NEUT % 59.9 % (16.0-70.0); PLATELET COUNT 306 TH/MM3 (150-450); RED BLOOD COUNT 3.72 MIL/MM3 (4.00-5.30); RED CELL DISTRIBUTION WIDTH 15.2 % (11.6-17.2); WHITE BLOOD COUNT 10.6 TH/MM3 (4.0-11.0)
--- NOTE | 2016-12-28 08:01 | HHI.PR ---
Subjective Remarks Pt with less LLQ abd pain today, more of a dull ache No nausea or vomiting No BM Objective Vitals Vital Signs Date Time Temp Pulse Resp B/P (MAP) Pulse Ox O2 Delivery O2 Flow Rate FiO2 12/28/16 04:28 96.9 75 20 99/54 (69) 91 12/28/16 00:42 18 12/27/16 23:59 96.3 77 20 93/55 (68) 93 12/27/16 19:47 98.0 83 18 135/68 (90) 95 12/27/16 19:00 18 12/27/16 19:00 18 12/27/16 18:50 98.7 84 24 119/61 (80) 92 12/27/16 18:30 12/27/16 16:15 89 16 139/73 (95) 96 Room Air 12/27/16 15:00 94 Room Air 12/27/16 13:58 98.9 92 18 159/77 (104) 93 Room Air Result Diagram: 12/28/16 0610 12/28/16 0610 Other Results Laboratory Tests Test 12/27/16 14:25 12/27/16 16:00 12/28/16 06:10 White Blood Count 12.4 TH/MM3 10.6 TH/MM3 Red Blood Count 4.71 MIL/MM3 3.72 MIL/MM3 Hemoglobin 13.7 GM/DL 10.9 GM/DL Hematocrit 41.8 % 33.2 % Mean Corpuscular Volume 88.6 FL 89.2 FL Mean Corpuscular Hemoglobin 29.2 PG 29.2 PG Mean Corpuscular Hemoglobin Concent 32.9 % 32.8 % Red Cell Distribution Width 15.4 % 15.2 % Platelet Count 374 TH/MM3 306 TH/MM3 Mean Platelet Volume 7.4 FL 7.2 FL Neutrophils (%) (Auto) 73.4 % 59.9 % Lymphocytes (%) (Auto) 19.0 % 30.7 % Monocytes (%) (Auto) 6.5 % 7.9 % Eosinophils (%) (Auto) 0.8 % 1.1 % Basophils (%) (Auto) 0.3 % 0.4 % Neutrophils # (Auto) 9.1 TH/MM3 6.3 TH/MM3 Lymphocytes # (Auto) 2.4 TH/MM3 3.3 TH/MM3 Monocytes # (Auto) 0.8 TH/MM3 0.8 TH/MM3 Eosinophils # (Auto) 0.1 TH/MM3 0.1 TH/MM3 Basophils # (Auto) 0.0 TH/MM3 0.0 TH/MM3 CBC Comment DIFF FINAL DIFF FINAL Differential Comment Prothrombin Time 11.0 SEC Prothromb Time International Ratio 1.0 RATIO Activated Partial Thromboplast Time 24.8 SEC Blood Urea Nitrogen 25 MG/DL 29 MG/DL Creatinine 1.48 MG/DL 1.95 MG/DL Random Glucose 145 MG/DL 129 MG/DL Total Protein 7.5 GM/DL Albumin 3.4 GM/DL Calcium Level 9.5 MG/DL 8.3 MG/DL Alkaline Phosphatase 170 U/L Aspartate Amino Transf (AST/SGOT) 33 U/L Alanine Aminotransferase (ALT/SGPT) 45 U/L Total Bilirubin 0.5 MG/DL Sodium Level 141 MEQ/L 140 MEQ/L Potassium Level 3.6 MEQ/L 3.5 MEQ/L Chloride Level 102 MEQ/L 103 MEQ/L Carbon Dioxide Level 29.5 MEQ/L 28.2 MEQ/L Anion Gap 10 MEQ/L 9 MEQ/L Estimat Glomerular Filtration Rate 37 ML/MIN 27 ML/MIN Lipase 175 U/L Urine Color LIGHT-YELLOW Urine Turbidity CLEAR Urine pH 5.5 Urine Specific [place] 1.007 Urine Protein NEG mg/dL Urine Glucose (UA) NEG mg/dL Urine Ketones NEG mg/dL Urine Occult Blood NEG Urine Nitrite NEG Urine Bilirubin NEG Urine Urobilinogen LESS THAN 2.0 MG/DL Urine Leukocyte Esterase NEG Urine RBC 2 /hpf Urine WBC LESS THAN 1 /hpf Urine Squamous Epithelial Cells 1 /hpf Microscopic Urinalysis Comment CULT NOT INDICATED Imaging CT Abd/pelvis W/O IV Contrast (12/27/16) - 1mm stone left UVJ with minimal perinephritic stranding - Remaining 1mm stone in the left kidney Objective Remarks General: NAD, AAOx3 Chest: CTA Cardiac: Regular Abd: +BS, soft mildly distended, mild LLQ tenderness Ext: No edema A/P Problem List: (1) LLQ abdominal pain ICD Codes: R10.32 - Left lower quadrant pain Status: Acute Plan: - Pt is 51 y/o WF with CAD, diabetes, and HTN who presented to the ED at [facility] on 12/27/16 with complaints of LLQ abd pain, that started earlier today around 11:30 this morning. She reports that this pain is similar to pain she had 1 month ago. - Pt was admitted from December 01, 2016 to December 13, 2016 with LLQ/left flank pain. She had a renogram which was negative for obstruction on December 04. She was cleared by urology for discharge. However, just before discharge, she went into asystolic cardiac arrest and was intubated. Pt improved clinically and was discharged to rehab. The patient states that the abdominal pain has been gone since discharge until today - Noncontrasted CT Abd/pelvis in the ED noted 1mm stone left UVJ with minimal perinephritic stranding and remaining 1mm stone in the left kidney - Etiology for LLQ pain is unclear, possibly related to perinephritic stranding vs. musculoskeletal related to recent coughing vs. mild diverticulitis that is not yet noted on CT on noncontrasted study and the pt had recently been on antibiotics vs. other. - Consult Urology given findings on CT scan - Check Renal artery US - Consult GI - Pts last colonoscopy was in 1998 per the pt - Pain control PRN - IVF - Diet as tolerated - Supportive care - DVT prophylaxis (2) Acute kidney injury ICD Codes: N17.9 - Acute kidney failure, unspecified Status: Acute Plan: - Labs worse today, Cr 1.95, GFR 27 but pt was given Toradol in the ED last night - Renal artery US ordered - UA was WNL - IVF - Monitor labs (3) Leukocytosis ICD Codes: D72.829 - Elevated white blood cell count, unspecified Status: Acute Plan: - Improved (4) HTN (hypertension) ICD Codes: I10 - Essential (primary) hypertension Status: Chronic Plan: - Home meds continued (5) Cardiac arrest ICD Codes: I46.9 - Cardiac arrest, cause unspecified Status: Resolved Plan: - Pt previously went into asystolic cardiac arrest and was intubated during recent admission in 11/2016. - Patient states that it was never found out why she was having abdominal pain or why she went into cardiac arrest. - Pt was seen by Dr. Reeves yesterday as an outpt and is planned to have Holter Monitor evaluation - Pt is requesting that she be seen by her Cash Surrender Calculator, Dr. Reeves during this admission, but Dr. Reeves does not come to this hospital. I spoke with Emmie at [facility] office and she is the one who spoke with the pts sister on the way to the hospital yesterday and Emmie states that she told them that if the pts symptoms were cardiac related that her attending can consult cardiology. At this point there does not appear to be any cardiac issues currently. She has been on telemetry but there have not been any abnormalities noted on tele since admission. (6) Diabetes mellitus ICD Codes: E11.9 - Diabetes mellitus Status: Chronic Plan: - NovoLog SSI - Levemir 30 units BID - Accu checks (7) Hyperlipidemia ICD Codes: E78.5 - Hyperlipidemia, unspecified Status: Chronic Plan: - NovoLog SSI - Levemir 30units BID - Accuchecks Problem Qualifiers (1) Diabetes mellitus: Sera Oreilly Dec 28, 2016 08:01
[2016-12-28] MEDS: INSULIN ASPART SUPPLEMENTAL SCALE SQ SCH ×4 (08:35→23:26)
[2016-12-28] MEDS: INSULIN DETEMIR 100 UNITS/ML VIAL SQ SCH ×2 (08:38→23:25)
[2016-12-28] MEDS: CARVEDILOL 3.125 MG TAB PO SCH ×2 (08:38→23:34)
[2016-12-28] MEDS: ASPIRIN EC 81 MG TABEC PO SCH (08:39)
[2016-12-28] MEDS: PANTOPRAZOLE SOD 40 MG DELAYED RELEASE TAB PO SCH (08:39)
[2016-12-28] MEDS: TICAGRELOR 90 MG TAB PO SCH ×2 (08:39→23:34)
[2016-12-28] MEDS: METOCLOPRAMIDE HCL 10 MG TAB PO SCH (08:40)
[2016-12-28] MEDS ORDERED: INFLUENZA VIRUS VACCINE (QUADRIVALENT) 0.5 ML SYR IM ONE (10:00)
[2016-12-28] MEDS: SODIUM CHLOR 0.9% 1000 ML INJ 1,000 ML IV SCH ×2 (10:35→23:28)
--- NOTE | 2016-12-28 11:27 | PD.CONS ---
HPI History of Present Illness This is a 51 year old female who presented to the emergency room for evaluation of abdominal pain. She reports that the pain actually began about a month. She describes this as constant dull ache in her LLQ with intermittent stabbing sharp pains. She cannot identify any aggravating or alleviating factors. She went to the ER last month for this same pain and was hospitalized from 12/01/16- 12/13/16 for LLQ/Left flank pain. She was evaluated by urology and had a renogram, which was negative for obstruction. Her hospital course was complicated and she went into asystolic cardiac arrest and required intubation for respiratory failure. Her pain completely resolved while she was in the hospital and she was then discharged to a rehab center on 12/13/16. After her discharge, she was also treated with doxycycline and Mucinex for some chest congestion and cough. She reports that she was doing okay up until yesterday, when she started having the same LLQ pain again. She denies any fevers or chills. She does have some nausea when the pain gets real bad, but states she does not actually vomit. She denies any diarrhea, constipation, melena, or hematochezia. EGD (12/25/14)---> Mild gastritis, otherwise unremarkable esophagogastroduodenoscopy, s/p biopsy. Pathology with features of reactive gastropathy with edema, hyperemia, and focal mild chronic inflammation. Immunohistochemistry for h. pylori is negative. She also had an EGD about a year ago with Dr. Bryant with a dilatation for esophageal stricture at that time. She reports that she is not having any difficulty swallowing at this time. Her last colonoscopy was 1998. (Renata Massey) PFSH Past Medical History DM Esophageal stricture/Dysphagia Gastritis Hyperlipidemia Anxiety Atherosclerosis of aorta Chronic pain CKD Peripheral neuropathy Depression CAD Hx endometriosis HTN DDD Osteoarthritis Past Surgical History Left BKA Cardiac catheterization with stent placement Appendectomy Cholecystectomy JULIA with BSO EGD with dilatation- 2016 Colonoscopy 1998 (Renata Massey) Coded Allergies: cefaclor (Unverified Allergy, Severe, HIVES, 12/01/16) erythromycin base (Unverified Allergy, Severe, HIVES, 12/01/16) levofloxacin (Unverified Allergy, Severe, HIVES, 12/01/16) penicillin G (Unverified Allergy, Severe, HIVES, 12/01/16) amoxicillin (Verified Allergy, Unknown, 12/01/16) promethazine (Verified Allergy, Unknown, 12/01/16) Medications Allergies Coded Allergies Type Severity Reaction Last Updated Verified cefaclor Allergy Severe HIVES 12/01/16 No erythromycin base Allergy Severe HIVES 12/01/16 No levofloxacin Allergy Severe HIVES 12/01/16 No penicillin G Allergy Severe HIVES 12/01/16 No amoxicillin Allergy Unknown 12/01/16 Yes promethazine Allergy Unknown 12/01/16 Yes Active Scripts Medications Dose Route/Sig Max Daily Dose Days Date Category Dose Instructions Lortab (Hydrocodone-Acetaminophen) 5-325 Mg Tab 1 Tab PO Q3HR PRN 12/27/16 Reported Doxycycline Hyclate 100 Mg Cap 100 Mg PO Q12HR 10 12/27/16 Reported Prevacid (Lansoprazole) 30 Mg Capdr 30 Mg PO DAILY 12/27/16 Reported Senna Plus 8.6-50 mg (Sennosides-Docusate Sodium) 8.6 Mg-50 Mg Tab 1 Tab PO BID 12/12/16 Rx Lorazepam 0.5 Mg Tab 0.5 Mg PO DAILY PRN 12/12/16 Rx Novolog Flexpen Inj (Insulin Aspart) 300 Unit/3 Ml Pen 10 Units SQ TID 12/01/16 Reported With sliding scale Levemir Flextouch Pen Inj (Insulin Detemir) 300 unit/3 ML Pen 60 Units SQ HS 12/01/16 Reported Carvedilol 3.125 Mg Tab 3.125 Mg PO BID 12/01/16 Reported Furosemide 40 Mg Tab 40 Mg PO DAILY PRN 12/01/16 Reported Atorvastatin (Atorvastatin Calcium) 80 Mg Tab 80 Mg PO HS 12/01/16 Reported Aspirin EC (Aspirin) 81 Mg Tabdr 81 Mg PO DAILY 12/01/16 Reported Metoclopramide (Metoclopramide HCl) 5 Mg Tab 5 Mg PO DAILY 12/01/16 Reported Brilinta (Ticagrelor) 90 Mg Tab 90 Mg PO BID 12/01/16 Reported Family History No esophageal, gastric, colorectal cancer Social History No use of alcohol, tobacco, or illicit drug use (Renata Massey) Review of Systems Constitutional: COMPLAINS OF: Fatigue, DENIES: Fever, Chills Respiratory: COMPLAINS OF: Cough, Shortness of breath Cardiovascular: DENIES: Chest pain Gastrointestinal: COMPLAINS OF: Abdominal pain, Nausea, DENIES: Black stools, Bloody stools, Constipation, Diarrhea, Vomiting, Anorexia, Swelling of Abdomen, Heartburn, Hematemesis Musculoskeletal: COMPLAINS OF: Joint pain, Back pain Integumentary: DENIES: Abnormal pigmentation Hematologic/lymphatic: DENIES: Bruising Neurologic: DENIES: Headache Psychiatric: DENIES: Confusion (Renata Massey) GI Exam Vitals I&O Vital Signs Date Time Temp Pulse Resp B/P (MAP) Pulse Ox O2 Delivery O2 Flow Rate FiO2 12/28/16 08:59 95.9 77 18 108/56 (73) 92 12/28/16 04:28 96.9 75 20 99/54 (69) 91 12/28/16 00:42 18 12/27/16 23:59 96.3 77 20 93/55 (68) 93 12/27/16 19:47 98.0 83 18 135/68 (90) 95 12/27/16 19:00 18 12/27/16 19:00 18 12/27/16 18:50 98.7 84 24 119/61 (80) 92 12/27/16 18:30 12/27/16 16:15 89 16 139/73 (95) 96 Room Air 12/27/16 15:00 94 Room Air 12/27/16 13:58 98.9 92 18 159/77 (104) 93 Room Air I/O 12/27/16 12/27/16 12/27/16 12/28/16 12/28/16 12/28/16 07:00 15:00 23:00 07:00 15:00 23:00 Intake Total 1300 ml Balance 1300 ml Intake Oral 300 ml IV Total 1000 ml Imaging Last Impressions Chest X-Ray 12/27/16 5569 Signed Impressions: Service Date/Time: Tuesday, December 27, 2016 15:18 - CONCLUSION: Compensated cardiomegaly otherwise negative Board Certified Radiologist. This report was verified electronically. Abdomen/Pelvis CT 12/27/16 1459 Signed Impressions: Service Date/Time: Tuesday, December 27, 2016 15:20 - CONCLUSION: 1 mm stone left UVJ with minimal perinephric stranding. Remaining 1 mm stone in the left kidney. John Iverson MD FACR Laboratory Test 12/27/16 14:25 12/27/16 16:00 12/28/16 06:10 White Blood Count 12.4 TH/MM3 10.6 TH/MM3 Red Blood Count 4.71 MIL/MM3 3.72 MIL/MM3 Hemoglobin 13.7 GM/DL 10.9 GM/DL Hematocrit 41.8 % 33.2 % Mean Corpuscular Volume 88.6 FL 89.2 FL Mean Corpuscular Hemoglobin 29.2 PG 29.2 PG Mean Corpuscular Hemoglobin Concent 32.9 % 32.8 % Red Cell Distribution Width 15.4 % 15.2 % Platelet Count 374 TH/MM3 306 TH/MM3 Mean Platelet Volume 7.4 FL 7.2 FL Neutrophils (%) (Auto) 73.4 % 59.9 % Lymphocytes (%) (Auto) 19.0 % 30.7 % Monocytes (%) (Auto) 6.5 % 7.9 % Eosinophils (%) (Auto) 0.8 % 1.1 % Basophils (%) (Auto) 0.3 % 0.4 % Neutrophils # (Auto) 9.1 TH/MM3 6.3 TH/MM3 Lymphocytes # (Auto) 2.4 TH/MM3 3.3 TH/MM3 Monocytes # (Auto) 0.8 TH/MM3 0.8 TH/MM3 Eosinophils # (Auto) 0.1 TH/MM3 0.1 TH/MM3 Basophils # (Auto) 0.0 TH/MM3 0.0 TH/MM3 CBC Comment DIFF FINAL DIFF FINAL Differential Comment Prothrombin Time 11.0 SEC Prothromb Time International Ratio 1.0 RATIO Activated Partial Thromboplast Time 24.8 SEC Blood Urea Nitrogen 25 MG/DL 29 MG/DL Creatinine 1.48 MG/DL 1.95 MG/DL Random Glucose 145 MG/DL 129 MG/DL Total Protein 7.5 GM/DL Albumin 3.4 GM/DL Calcium Level 9.5 MG/DL 8.3 MG/DL Alkaline Phosphatase 170 U/L Aspartate Amino Transf (AST/SGOT) 33 U/L Alanine Aminotransferase (ALT/SGPT) 45 U/L Total Bilirubin 0.5 MG/DL Sodium Level 141 MEQ/L 140 MEQ/L Potassium Level 3.6 MEQ/L 3.5 MEQ/L Chloride Level 102 MEQ/L 103 MEQ/L Carbon Dioxide Level 29.5 MEQ/L 28.2 MEQ/L Anion Gap 10 MEQ/L 9 MEQ/L Estimat Glomerular Filtration Rate 37 ML/MIN 27 ML/MIN Lipase 175 U/L Urine Color LIGHT-YELLOW Urine Turbidity CLEAR Urine pH 5.5 Urine Specific [place] 1.007 Urine Protein NEG mg/dL Urine Glucose (UA) NEG mg/dL Urine Ketones NEG mg/dL Urine Occult Blood NEG Urine Nitrite NEG Urine Bilirubin NEG Urine Urobilinogen LESS THAN 2.0 MG/DL Urine Leukocyte Esterase NEG Urine RBC 2 /hpf Urine WBC LESS THAN 1 /hpf Urine Squamous Epithelial Cells 1 /hpf Microscopic Urinalysis Comment CULT NOT INDICATED Physical Examination HEENT: Normocephalic; atraumatic; no jaundice. CHEST: CTA CARDIAC: RRR ABDOMEN: Soft, nondistended, mild LLQ; no hepatosplenomegaly; bowel sounds are present in all four quadrants. EXTREMITIES: Left BKA SKIN: Normal; no rash; no jaundice. ASSISTANT PLANT CONTROL OPERATOR: No focal deficits; alert and oriented times three. (Renata Massey) Assessment and Plan Plan ASSESSMENT: - LLQ Pain, undetermined etiology. She was recently hospitalized for the same pain- constant dull ache in her LLQ with intermittent stabbing sharp pains from 12/01/16-12/13/16. She was evaluated by urology for ureteral colic, possible ureteral obstruction and had a renogram, which was negative for obstruction. Her hospital course was complicated and she went into asystolic cardiac arrest and required intubation for respiratory failure. Her pain completely resolved while she was in the hospital and she was then discharged to a rehab center on 12/13/16. After her discharge, she was also treated with doxycycline and Mucinex for some chest congestion and cough. The same pain then returned yesterday. She has associated nausea if the pain becomes bad, but otherwise no fever/chills, diarrhea, constipation, melena, hematochezia. She had an EGD for dysphagia about 1 year ago, last colonoscopy 1998. CT Scan abdomen and pelvis (12/27/16)---> 1 mm stone left UVJ with minimal perinephric stranding. Remaining 1 mm stone in the left kidney. WBC on admission 12.4---> 10.6. She also has CLARISA (worsening) 1.95. Of note, she is on Brilinta. Renal US pending. following. ? vs. GI etiology. Consider colonoscopy if no improvement, but would need to be off the Brilinta. - CLARISA. Creat 1.95. - Leukocytosis. Improved. PLAN: - MELIA - Await renal US - Await evaluation - Protonix 40mg po daily - Reglan 5mg po daily - Consider colonoscopy (inpatient vs. outpatient) if no improvement. However, would need to be off the Brilinta 5 days prior to the procedure. - Supportive care - Further recommendations to follow based on results of above - Pt seen and examined by Dr. Costa and myself and this note is written on his behalf (Renata Massey) Physician Comments Seen and examined with Renata. Plan discussed with the patient and family. Endoscopic evaluation after workup and after holding Brilinta. Will follow up with you. (Alysia Costa MD) Renata Massey Dec 28, 2016 11:27 Alysia Costa MD Dec 28, 2016 12:52
--- NOTE | 2016-12-28 13:42 | EKG ---
Date Performed: 12/27/2016 Time Performed: 16:58:25 PTAGE: 51 years EKG: Sinus rhythm Diffuse nonspecific ST T wave changes Compared to prior tracing no significant change PREVIOUS TRACING : 12/27/16 15:52 DOCTOR: Jose C Sanders Interpretating Date/Time 12/28/2016 13:41:28
--- NOTE | 2016-12-28 13:42 | EKG ---
Date Performed: 12/27/2016 Time Performed: 15:52:24 PTAGE: 51 years EKG: Sinus rhythm Diffuse nonspecific ST T wave changes Compared to prior tracing no significant change PREVIOUS TRACING : 12/05/2016 21.17 DOCTOR: Jose C Sanders Interpretating Date/Time 12/28/2016 13:41:02
--- NOTE | 2016-12-28 14:14 | RADRPT ---
EXAM DATE/TIME: 12/28/2016 07:35 [place] COMPARISON: No previous studies available for comparison. INDICATIONS : Increase Bun and Creatinine., evaluate for stenosis. MEDICAL HISTORY : Myocardial infarction. Hypercholesterolemia. SURGICAL HISTORY : Cholecystectomy. Hysterectomy. section. Dilation and curettage. Left foot amputation. ENCOUNTER: Initial ACUITY: 4-6 days PAIN SCORE: 4/10 LOCATION: Bilateral flank PEAK FLOW VELOCITIES (cm/sec): AORTA: PROXIMAL: 40.1 MID: 27.0 DISTAL: 28.7 RIGHT RENAL ARTERY: PROXIMAL: unable to obtain MID: 17.9 DISTAL: 37.8 RENAL ARTERY RATIO: 1.1 ARCUATE ARTERY RESISTIVE INDEX: Upper: unable to see Mid: 1.0 Lower: 1.0 LEFT RENAL ARTERY: PROXIMAL: 54.4 MID: 53.8 DISTAL: 59.5 RENAL ARTERY RATIO: 0.67 ARCUATE ARTERY RESISTIVE INDEX: Upper: 1.0 Mid: 0.81 Lower: unable to see FINDINGS: Renal artery and vein mapping as listed above. CONCLUSION: Elevated resistive indices bilaterally which can be seen with renal artery stenosis though the flow i n the main renal arteries is normal. MR angiography is recommended for further evaluation if clinical ly indicated. Marquez Moser MD on December 28, 2016 at 14:02 Board Certified Radiologist. This report was verified electronically.
[2016-12-28] MEDS: DOCUSATE SODIUM 50 MG/SENNA 8.6 MG TAB PO SCH ×2 (15:56→23:28)
--- NOTE | 2016-12-28 17:15 | PD.CONS ---
[facility] Service Urology Consult Requested By Sera Oreilly NP Reason for Consult Left ureteral calculus Primary Care Physician Flash Cuba M.D. Diagnosis: (1) LLQ abdominal pain ICD Code: R10.32 - Left lower quadrant pain (2) Acute kidney injury ICD Code: N17.9 - Acute kidney failure, unspecified (3) Leukocytosis ICD Code: D72.829 - Elevated white blood cell count, unspecified (4) HTN (hypertension) ICD Code: I10 - Essential (primary) hypertension (5) Cardiac arrest ICD Code: I46.9 - Cardiac arrest, cause unspecified (6) Diabetes mellitus ICD Code: E11.9 - Diabetes mellitus (7) Hyperlipidemia ICD Code: E78.5 - Hyperlipidemia, unspecified History of Present Illness 51-year-old female with no prior history nephrolithiasis who presented to the emergency room with left lower quadrant abdominal pain. Patient reported that she had similar symptoms approximately one month ago and was evaluated by ordered a renal scan that subsequent came back negative for obstruction. Patient presents now with similar symptoms and a CT scan study demonstrated a 1 mm left ureterovesical junction calculus also noted was additional 1 mm calculus involving the left kidney. At the time of consultation the patient's pain was well-controlled. She denied dysuria or gross hematuria. She denied a prior history of nephrolithiasis. She reports that during her last hospitalization in November that she went into cardiac arrest and was resuscitated and intubated. She subsequent was discharged to rehabilitation and denied ongoing urologic symptoms while at rehabilitation. Review of Systems Constitutional: DENIES: Fever, Chills Cardiovascular: DENIES: Chest pain Gastrointestinal: COMPLAINS OF: Abdominal pain (left lower quadrant) Genitourinary: DENIES: Hematuria, Dysuria Musculoskeletal: COMPLAINS OF: Back pain (left flank) Except as stated in HPI: all other systems reviewed are Neg Past Family Social History Past Medical History Coronary artery disease Diabetes mellitus Hypertension Endometriosis Gastroparesis Esophageal stricture Past Surgical History Status post cardiac stent placement Status post cholecystectomy Status post appendectomy Status post JULIA/BSO Status post left BKA Status post EGD with dilation Reported Medications Refer to EMR Allergies: Coded Allergies: cefaclor (Unverified Allergy, Severe, HIVES, 12/01/16) erythromycin base (Unverified Allergy, Severe, HIVES, 12/01/16) levofloxacin (Unverified Allergy, Severe, HIVES, 12/01/16) penicillin G (Unverified Allergy, Severe, HIVES, 12/01/16) amoxicillin (Verified Allergy, Unknown, 12/01/16) promethazine (Verified Allergy, Unknown, 12/01/16) Active Ordered Medications Refer to EMR Family History Reviewed and noncontributory Social History Denies tobacco, alcohol or illicit drug use Physical Exam Vital Signs Date Time Temp Pulse Resp B/P (MAP) Pulse Ox O2 Delivery O2 Flow Rate FiO2 12/28/16 15:09 96.5 79 18 98/52 (67) 93 12/28/16 15:00 84 12/28/16 11:45 96.4 75 16 93/48 (63) 93 12/28/16 08:59 95.9 77 18 108/56 (73) 92 12/28/16 07:15 75 12/28/16 04:28 96.9 75 20 99/54 (69) 91 12/28/16 00:42 18 12/27/16 23:59 96.3 77 20 93/55 (68) 93 12/27/16 19:47 98.0 83 18 135/68 (90) 95 12/27/16 19:00 18 12/27/16 19:00 18 12/27/16 18:50 98.7 84 24 119/61 (80) 92 12/27/16 18:30 Physical Exam GENERAL: This is a well-nourished, well-developed patient, in no apparent distress. SKIN: No rashes, ecchymoses or lesions. Cool and dry. HEAD: Atraumatic. Normocephalic. No temporal or scalp tenderness. EYES: Pupils equal round and reactive. Extraocular motions intact. No scleral icterus. No injection or drainage. ENT: Nose without bleeding, purulent drainage or septal hematoma. Throat without erythema, tonsillar hypertrophy or exudate. Uvula midline. Airway patent. NECK: Trachea midline. No JVD or lymphadenopathy. Supple, nontender, no meningeal signs. CARDIOVASCULAR: Regular rate and rhythm without murmurs, gallops, or rubs. RESPIRATORY: Clear to auscultation. Breath sounds equal bilaterally. No wheezes , rales, or rhonchi. GASTROINTESTINAL: Abdomen soft, non-tender, nondistended. No hepato-splenomegaly , or palpable masses. No guarding. GENITOURINARY: No CVA tenderness, bladder not distended MUSCULOSKELETAL: Left BKA NEUROLOGICAL: Awake and alert. Cranial nerves II through XII intact. Normal speech. Lab results reviewed: Yes Laboratory Tests Test 12/28/16 06:10 White Blood Count 10.6 Red Blood Count 3.72 Hemoglobin 10.9 Hematocrit 33.2 Mean Corpuscular Volume 89.2 Mean Corpuscular Hemoglobin 29.2 Mean Corpuscular Hemoglobin Concent 32.8 Red Cell Distribution Width 15.2 Platelet Count 306 Mean Platelet Volume 7.2 Neutrophils (%) (Auto) 59.9 Lymphocytes (%) (Auto) 30.7 Monocytes (%) (Auto) 7.9 Eosinophils (%) (Auto) 1.1 Basophils (%) (Auto) 0.4 Neutrophils # (Auto) 6.3 Lymphocytes # (Auto) 3.3 Monocytes # (Auto) 0.8 Eosinophils # (Auto) 0.1 Basophils # (Auto) 0.0 CBC Comment DIFF FINAL Differential Comment Blood Urea Nitrogen 29 Creatinine 1.95 Random Glucose 129 Calcium Level 8.3 Sodium Level 140 Potassium Level 3.5 Chloride Level 103 Carbon Dioxide Level 28.2 Anion Gap 9 Estimat Glomerular Filtration Rate 27 Result Diagram: 12/28/16 0610 12/28/16 0610 Personally reviewed images: Yes Imaging Last Impressions Renal Ultrasound 12/28/16 0000 Signed Impressions: Service Date/Time: December 07:35 - CONCLUSION: Elevated resistive indices bilaterally which can be seen with renal artery stenosis though the flow in the main renal arteries is normal. MR angiography is recommended for further evaluation if clinically indicated. Marquez Moser MD Chest X-Ray 12/27/16 2438 Signed Impressions: Service Date/Time: Tuesday, December 27, 2016 15:18 - CONCLUSION: Compensated cardiomegaly otherwise negative Board Certified Radiologist. This report was verified electronically. Abdomen/Pelvis CT 12/27/16 9718 Signed Impressions: Service Date/Time: Tuesday, December 27, 2016 15:20 - CONCLUSION: 1 mm stone left UVJ with minimal perinephric stranding. Remaining 1 mm stone in the left kidney. John Iverson MD FACR Assessment and Plan Assessment and Plan Urologic impression: 1 mm obstructing left ureterovesical junction calculus that is likely to pass spontaneously Recommendations: #1 strain all urine #2 Flomax 0.4 mg by mouth daily #3 discharged home with strainer when pain managed with oral medication #4 office follow up within the next 1-2 weeks [phone] Problem Qualifiers (1) Diabetes mellitus: Mao Portillo MD Dec 28, 2016 17:15
[2016-12-28] MEDS: TAMSULOSIN HCL 0.4 MG CAP PO SCH (18:29)
[2016-12-28] MEDS: ATORVASTATIN 80 MG TAB PO SCH (23:29)
[2016-12-29] VITALS (11 sets, daily range): BP systolic 87–173; BP diastolic 48–72; PULSE 74–96; RESP 16–22; TEMP 98.1–99.3; O2SAT 92–98
[2016-12-29] MEDS ORDERED: RESP: ALBUTEROL 2.5 MG/IPRATROPIUM 0.5 MG NEB (PRN) NEB (01:00)
[2016-12-29 05:38] LABS: AUTOMATED NEUTROPHIL # 6.5 TH/MM3 (1.8-7.7); BASOPHIL # 0.1 TH/MM3 (0-0.2); BASOPHIL % 0.5 % (0.0-2.0); EOSINOPHIL # 0.2 TH/MM3 (0-0.4); EOSINOPHIL % 2.1 % (0.0-4.0); HEMATOCRIT 33.2 % (35.0-46.0); LYMPH % 28.3 % (9.0-44.0); MEAN CELL VOLUME 89.6 FL (80.0-100.0); MEAN CORPUSCULAR HEMOGLOBIN 29.7 PG (27.0-34.0); MEAN CORPUSCULAR HGB CONC 33.2 % (32.0-36.0); MEAN PLATELET VOLUME 7.3 FL (7.0-11.0); MONO % 7.8 % (0.0-8.0); MONOCYTE # 0.8 TH/MM3 (0-0.9); NEUT % 61.3 % (16.0-70.0); PLATELET COUNT 313 TH/MM3 (150-450); RED BLOOD COUNT 3.71 MIL/MM3 (4.00-5.30); RED CELL DISTRIBUTION WIDTH 15.2 % (11.6-17.2); WHITE BLOOD COUNT 10.7 TH/MM3 (4.0-11.0)
[2016-12-29 06:02] LABS: BICARBONATE 26.2 MEQ/L (21.0-32.0); CALCIUM 8.5 MG/DL (8.5-10.1); CREATININE 2.24 MG/DL (0.50-1.00); MAGNESIUM 1.7 MG/DL (1.5-2.5)
--- NOTE | 2016-12-29 08:06 | HHI.PR ---
Subjective Remarks Pt reports that her LLQ abd pain is improving, still somewhat tender She has not had a BM since prior to admission but she states that this is not unusual for her Pt is urinating without difficulty Objective Vitals Vital Signs Date Time Temp Pulse Resp B/P (MAP) Pulse Ox O2 Delivery O2 Flow Rate FiO2 12/29/16 07:24 98.6 79 22 101/51 (68) 98 12/29/16 06:21 98.1 81 16 99/52 (68) 92 12/29/16 04:15 74 12/29/16 02:03 97 Nasal Cannula 2.00 12/29/16 01:32 99.3 87 17 93/57 (69) 92 12/29/16 00:04 88 12/28/16 22:25 98.9 91 18 130/62 (84) 97 12/28/16 20:21 66 12/28/16 15:09 96.5 79 18 98/52 (67) 93 12/28/16 15:00 84 12/28/16 11:45 96.4 75 16 93/48 (63) 93 12/28/16 08:59 95.9 77 18 108/56 (73) 92 Result Diagram: 12/29/16 0512 12/29/16 05 Other Results Laboratory Tests Test 12/27/16 14:25 12/27/16 16:00 12/28/16 06:10 12/29/16 05:12 White Blood Count 12.4 TH/MM3 10.6 TH/MM3 10.7 TH/MM3 Red Blood Count 4.71 MIL/MM3 3.72 MIL/MM3 3.71 MIL/MM3 Hemoglobin 13.7 GM/DL 10.9 GM/DL 11.0 GM/DL Hematocrit 41.8 % 33.2 % 33.2 % Mean Corpuscular Volume 88.6 FL 89.2 FL 89.6 FL Mean Corpuscular Hemoglobin 29.2 PG 29.2 PG 29.7 PG Mean Corpuscular Hemoglobin Concent 32.9 % 32.8 % 33.2 % Red Cell Distribution Width 15.4 % 15.2 % 15.2 % Platelet Count 374 TH/MM3 306 TH/MM3 313 TH/MM3 Mean Platelet Volume 7.4 FL 7.2 FL 7.3 FL Neutrophils (%) (Auto) 73.4 % 59.9 % 61.3 % Lymphocytes (%) (Auto) 19.0 % 30.7 % 28.3 % Monocytes (%) (Auto) 6.5 % 7.9 % 7.8 % Eosinophils (%) (Auto) 0.8 % 1.1 % 2.1 % Basophils (%) (Auto) 0.3 % 0.4 % 0.5 % Neutrophils # (Auto) 9.1 TH/MM3 6.3 TH/MM3 6.5 TH/MM3 Lymphocytes # (Auto) 2.4 TH/MM3 3.3 TH/MM3 3.0 TH/MM3 Monocytes # (Auto) 0.8 TH/MM3 0.8 TH/MM3 0.8 TH/MM3 Eosinophils # (Auto) 0.1 TH/MM3 0.1 TH/MM3 0.2 TH/MM3 Basophils # (Auto) 0.0 TH/MM3 0.0 TH/MM3 0.1 TH/MM3 CBC Comment DIFF FINAL DIFF FINAL DIFF FINAL Differential Comment Prothrombin Time 11.0 SEC Prothromb Time International Ratio 1.0 RATIO Activated Partial Thromboplast Time 24.8 SEC Blood Urea Nitrogen 25 MG/DL 29 MG/DL 32 MG/DL Creatinine 1.48 MG/DL 1.95 MG/DL 2.24 MG/DL Random Glucose 145 MG/DL 129 MG/DL 162 MG/DL Total Protein 7.5 GM/DL Albumin 3.4 GM/DL Calcium Level 9.5 MG/DL 8.3 MG/DL 8.5 MG/DL Alkaline Phosphatase 170 U/L Aspartate Amino Transf (AST/SGOT) 33 U/L Alanine Aminotransferase (ALT/SGPT) 45 U/L Total Bilirubin 0.5 MG/DL Sodium Level 141 MEQ/L 140 MEQ/L 142 MEQ/L Potassium Level 3.6 MEQ/L 3.5 MEQ/L 4.0 MEQ/L Chloride Level 102 MEQ/L 103 MEQ/L 106 MEQ/L Carbon Dioxide Level 29.5 MEQ/L 28.2 MEQ/L 26.2 MEQ/L Anion Gap 10 MEQ/L 9 MEQ/L 10 MEQ/L Estimat Glomerular Filtration Rate 37 ML/MIN 27 ML/MIN 23 ML/MIN Lipase 175 U/L Urine Color LIGHT-YELLOW Urine Turbidity CLEAR Urine pH 5.5 Urine Specific [place] 1.007 Urine Protein NEG mg/dL Urine Glucose (UA) NEG mg/dL Urine Ketones NEG mg/dL Urine Occult Blood NEG Urine Nitrite NEG Urine Bilirubin NEG Urine Urobilinogen LESS THAN 2.0 MG/DL Urine Leukocyte Esterase NEG Urine RBC 2 /hpf Urine WBC LESS THAN 1 /hpf Urine Squamous Epithelial Cells 1 /hpf Microscopic Urinalysis Comment CULT NOT INDICATED Magnesium Level 1.7 MG/DL Imaging Last Impressions Renal Ultrasound 12/28/16 0000 Signed Impressions: Service Date/Time: December 07:35 - CONCLUSION: Elevated resistive indices bilaterally which can be seen with renal artery stenosis though the flow in the main renal arteries is normal. MR angiography is recommended for further evaluation if clinically indicated. Marquez Moser MD Chest X-Ray 12/27/16 1459 Signed Impressions: Service Date/Time: Tuesday, December 27, 2016 15:18 - CONCLUSION: Compensated cardiomegaly otherwise negative Board Certified Radiologist. This report was verified electronically. Abdomen/Pelvis CT 12/27/16 1459 Signed Impressions: Service Date/Time: Tuesday, December 27, 2016 15:20 - CONCLUSION: 1 mm stone left UVJ with minimal perinephric stranding. Remaining 1 mm stone in the left kidney. John Iverson MD FACR Objective Remarks General: NAD, AAOx3 Chest: CTA Cardiac: Regular Abd: +BS, soft mildly distended, mild LLQ tenderness Ext: No edema A/P Problem List: (1) LLQ abdominal pain ICD Codes: R10.32 - Left lower quadrant pain Status: Acute Plan: - Pt is 51 y/o WF with CAD, diabetes, and HTN who [place] [facility] [place] with complaints of LLQ abd pain, that started earlier today around 11:30 this morning. She reports that this pain is similar to pain she had 1 month ago. - Pt was admitted from December 01, 2016 to December 13, 2016 with LLQ/left flank pain. She had a renogram which was negative for obstruction on December 04. She was cleared by urology for discharge. However, just before discharge, she went into asystolic cardiac arrest and was intubated. Pt improved clinically and was discharged to rehab. The patient states that the abdominal pain has been gone since discharge until today - Noncontrasted CT Abd/pelvis in the ED noted 1mm stone left UVJ with minimal perinephritic stranding and remaining 1mm stone in the left kidney - Etiology for LLQ pain is unclear, possibly related to perinephritic stranding vs. musculoskeletal related to recent coughing vs. mild diverticulitis that is not yet noted on CT on noncontrasted study and the pt had recently been on antibiotics vs. other. - Appreciate Urology consult - Pt started on Flomax and recommended to strain her urine - Appreciate GI Consult - Pts last colonoscopy was in 1998 per the pt - Pt recommended to have endoscopic evaluation but will need to be off her Brilinta for 5 days. Unclear if this will be done as inpatient vs. outpt - Pain control PRN - IVF - Diet as tolerated - Supportive care - DVT prophylaxis (2) Acute kidney injury ICD Codes: N17.9 - Acute kidney failure, unspecified Status: Acute Plan: - Labs worse today, Cr 2.24, GFR 23 - Pt was given Toradol in the ED, unclear if this is what's causing the worsening renal function - Renal artery US (12/28) --> Elevated resistive indices bilaterally which can be seen with renal artery stenosis though the flow in the main renal arteries is normal. - MR angiography is recommended for further evaluation but due to pts worsening renal function this can't be performed at this time. - UA was WNL - IVF - Monitor labs (3) Leukocytosis ICD Codes: D72.829 - Elevated white blood cell count, unspecified Status: Acute Plan: - Improved (4) HTN (hypertension) ICD Codes: I10 - Essential (primary) hypertension Status: Chronic Plan: - Home meds continued (5) Cardiac arrest ICD Codes: I46.9 - Cardiac arrest, cause unspecified Status: Resolved Plan: - Pt previously went into asystolic cardiac arrest and was intubated during recent admission in 11/2016. - Patient states that it was never found out why she was having abdominal pain or why she went into cardiac arrest. - Pt was seen by Dr. Reeves yesterday as an outpt and is planned to have Holter Monitor evaluation - Pt is requesting that she be seen by her Physical Damage Appraiser, Dr. Reeves during this admission, but Dr. Reeves does not come to this hospital. I spoke with Emmie, at [facility] heart [facility] office and she is the one who spoke with the pts sister on the way to the hospital yesterday and Emmie states that she told them that if the pts symptoms were cardiac related that her attending can consult cardiology. At this point there does not appear to be any cardiac issues currently. She has been on telemetry but there have not been any abnormalities noted on tele since admission. (6) Diabetes mellitus ICD Codes: E11.9 - Diabetes mellitus Status: Chronic Plan: - NovoLog SSI - Levemir 30 units BID - Accu checks (7) Hyperlipidemia ICD Codes: E78.5 - Hyperlipidemia, unspecified Status: Chronic Plan: - NovoLog SSI - Levemir 30units BID - Accuchecks Problem Qualifiers (1) Diabetes mellitus: Sera Oreilly Dec 29, 2016 08:06
[2016-12-29] MEDS: INSULIN DETEMIR 100 UNITS/ML VIAL SQ SCH ×2 (08:30→22:16)
[2016-12-29] MEDS: INSULIN ASPART SUPPLEMENTAL SCALE SQ SCH ×4 (08:31→22:17)
[2016-12-29] MEDS: CARVEDILOL 3.125 MG TAB PO SCH ×2 (08:32→20:19)
[2016-12-29] MEDS: TAMSULOSIN HCL 0.4 MG CAP PO SCH (08:32)
[2016-12-29] MEDS: ASPIRIN EC 81 MG TABEC PO SCH (08:33)
[2016-12-29] MEDS: DOCUSATE SODIUM 50 MG/SENNA 8.6 MG TAB PO SCH ×2 (08:33→20:19)
[2016-12-29] MEDS: TICAGRELOR 90 MG TAB PO SCH ×2 (08:33→20:19)
[2016-12-29] MEDS: METOCLOPRAMIDE HCL 10 MG TAB PO SCH (11:51)
[2016-12-29] MEDS: PANTOPRAZOLE SOD 40 MG DELAYED RELEASE TAB PO SCH (11:51)
[2016-12-29] MEDS: SODIUM CHLOR 0.9% 1000 ML INJ 1,000 ML IV SCH (13:09)
[2016-12-29] MEDS: ATORVASTATIN 80 MG TAB PO SCH (20:19)
[2016-12-29] MEDS: ACETAMINOPHEN/HYDROcodone 325 MG/7.5 MG TAB PO PRN (21:55)
[2016-12-30 00:12] VITALS: BP 108/70; PULSE 96; RESP 18; TEMP 98.9; O2SAT 96
[2016-12-30] MEDS: SODIUM CHLOR 0.9% 1000 ML INJ 1,000 ML IV SCH ×2 (03:16→17:33)
[2016-12-30 04:19] VITALS: BP 91/51; PULSE 83; RESP 18; TEMP 98.6; O2SAT 95
[2016-12-30 07:30] LABS: BICARBONATE 23.4 MEQ/L (21.0-32.0); CALCIUM 8.6 MG/DL (8.5-10.1); CREATININE 1.91 MG/DL (0.50-1.00)
[2016-12-30 08:00] VITALS: BP 123/62; PULSE 82; RESP 17; TEMP 96.7; O2SAT 94
[2016-12-30] MEDS: INSULIN ASPART SUPPLEMENTAL SCALE SQ SCH ×4 (08:00→21:00)
[2016-12-30] MEDS: PANTOPRAZOLE SOD 40 MG DELAYED RELEASE TAB PO SCH (10:01)
[2016-12-30] MEDS: ASPIRIN EC 81 MG TABEC PO SCH (10:01)
[2016-12-30] MEDS: TAMSULOSIN HCL 0.4 MG CAP PO SCH (10:02)
[2016-12-30] MEDS: METOCLOPRAMIDE HCL 10 MG TAB PO SCH (10:02)
[2016-12-30] MEDS: CARVEDILOL 3.125 MG TAB PO SCH ×2 (10:02→20:59)
[2016-12-30] MEDS: DOCUSATE SODIUM 50 MG/SENNA 8.6 MG TAB PO SCH ×2 (10:02→20:59)
[2016-12-30] MEDS: INSULIN DETEMIR 100 UNITS/ML VIAL SQ SCH ×2 (10:03→21:00)
[2016-12-30] MEDS: TICAGRELOR 90 MG TAB PO SCH ×2 (10:03→20:59)
[2016-12-30] MEDS: ACETAMINOPHEN/HYDROcodone 325 MG/7.5 MG TAB PO PRN ×2 (10:10→20:59)
--- NOTE | 2016-12-30 10:19 | HHI.PR ---
Subjective Remarks doing better overall. llq pain improved. Objective Vitals heart reg lung cta abd s/nt ext no edema Vital Signs Date Time Temp Pulse Resp B/P (MAP) Pulse Ox O2 Delivery O2 Flow Rate FiO2 12/30/16 08:00 96.7 82 17 123/62 (82) 94 12/30/16 04:19 98.6 83 18 91/51 (64) 95 12/30/16 00:12 98.9 96 18 108/70 (83) 96 12/29/16 23:00 96 12/29/16 20:11 99.0 84 18 173/72 (105) 96 12/29/16 20:00 84 12/29/16 16:00 98.5 89 18 129/66 (87) 92 12/29/16 11:58 98.3 77 18 87/48 (61) 93 12/29/16 11:19 98.7 77 18 97/54 (68) 97 Result Diagram: 12/29/16 0512 12/30/16 0600 Imaging Last Impressions Renal Ultrasound 12/28/16 0000 Signed Impressions: Service Date/Time: December 07:35 - CONCLUSION: Elevated resistive indices bilaterally which can be seen with renal artery stenosis though the flow in the main renal arteries is normal. MR angiography is recommended for further evaluation if clinically indicated. Marquez Moser MD Chest X-Ray 12/27/16 2645 Signed Impressions: Service Date/Time: Tuesday, December 27, 2016 15:18 - CONCLUSION: Compensated cardiomegaly otherwise negative Board Certified Radiologist. This report was verified electronically. Abdomen/Pelvis CT 12/27/16 2669 Signed Impressions: Service Date/Time: Tuesday, December 27, 2016 15:20 - CONCLUSION: 1 mm stone left UVJ with minimal perinephric stranding. Remaining 1 mm stone in the left kidney. John Iverson MD FACR A/P Problem List: (1) LLQ abdominal pain ICD Codes: R10.32 - Left lower quadrant pain Status: Acute Plan: - Pt is 51 y/o WF with CAD, diabetes, and HTN who presented to the ED at [facility] [place] on 12/27/16 with complaints of LLQ abd pain, that started earlier today around 11:30 this morning. She reports that this pain is similar to pain she had 1 month ago. - Pt was admitted from December 01, 2016 to December 13, 2016 with LLQ/left flank pain. She had a renogram which was negative for obstruction on December 04. She was cleared by urology for discharge. However, just before discharge, she went into asystolic cardiac arrest and was intubated. Pt improved clinically and was discharged to rehab. The patient states that the abdominal pain has been gone since discharge until today - Noncontrasted CT Abd/pelvis in the ED noted 1mm stone left UVJ with minimal perinephritic stranding and remaining 1mm stone in the left kidney - Etiology for LLQ pain is unclear, possibly related to perinephritic stranding vs. musculoskeletal related to recent coughing vs. mild diverticulitis that is not yet noted on CT on noncontrasted study and the pt had recently been on antibiotics vs. other. - Appreciate Urology consult - Pt started on Flomax and recommended to strain her urine - Appreciate GI Consult - Pts last colonoscopy was in 1998 per the pt - Pt recommended to have endoscopic evaluation but will need to be off her Brilinta for 5 days.. will refer for outpt eval Her devin is probably related to iv toradol given by ED...improved slightly...recheck and if still trending then d/c - IVF - Diet as tolerated - Supportive care - DVT prophylaxis (2) Acute kidney injury ICD Codes: N17.9 - Acute kidney failure, unspecified Status: Acute Plan: - Labs worse today, Cr 2.24, GFR 23 - Pt was given Toradol in the ED, unclear if this is what's causing the worsening renal function - Renal artery US (12/28) --> Elevated resistive indices bilaterally which can be seen with renal artery stenosis though the flow in the main renal arteries is normal. - MR angiography is recommended for further evaluation but due to pts worsening renal function this can't be performed at this time. - UA was WNL - IVF - Monitor labs see above (3) Leukocytosis ICD Codes: D72.829 - Elevated white blood cell count, unspecified Status: Acute Plan: - Improved (4) HTN (hypertension) ICD Codes: I10 - Essential (primary) hypertension Status: Chronic Plan: - Home meds continued (5) Cardiac arrest ICD Codes: I46.9 - Cardiac arrest, cause unspecified Status: Resolved Plan: - Pt previously went into asystolic cardiac arrest and was intubated during recent admission in 11/2016. - Patient states that it was never found out why she was having abdominal pain or why she went into cardiac arrest. - Pt was seen by Dr. Reeves yesterday as an outpt and is planned to have Holter Monitor evaluation - Pt is requesting that she be seen by her Water Hydrant Installer, Dr. Reeves during this admission, but Dr. Reeves does not come to this hospital. I spoke with Emmie, at [facility] office and she is the one who spoke with the pts sister on the way to the hospital yesterday and Emmie states that she told them that if the pts symptoms were cardiac related that her attending can consult cardiology. At this point there does not appear to be any cardiac issues currently. She has been on telemetry but there have not been any abnormalities noted on tele since admission. (6) Diabetes mellitus ICD Codes: E11.9 - Diabetes mellitus Status: Chronic Plan: - NovoLog SSI - Levemir 30 units BID - Accu checks (7) Hyperlipidemia ICD Codes: E78.5 - Hyperlipidemia, unspecified Status: Chronic Plan: - NovoLog SSI - Levemir 30units BID - Accuchecks Problem Qualifiers (1) Diabetes mellitus: Cristóbal House MD Dec 30, 2016 10:19
[2016-12-30 12:00] VITALS: BP 144/63; PULSE 79; RESP 17; TEMP 98.4; O2SAT 97
[2016-12-30 16:00] VITALS: BP 94/55; PULSE 75; RESP 18; TEMP 98.5; O2SAT 96
[2016-12-30 20:00] VITALS: BP 104/57; PULSE 80; PULSE 81; RESP 20; TEMP 98.7; O2SAT 95
[2016-12-30] MEDS: ATORVASTATIN 80 MG TAB PO SCH (20:59)
[2016-12-31] VITALS: BP 120/55; PULSE 85; RESP 20; TEMP 98.1; O2SAT 92
[2016-12-31 04:00] VITALS: BP 99/56; PULSE 87; RESP 20; TEMP 98.3; O2SAT 92
[2016-12-31 07:27] LABS: BICARBONATE 24.6 MEQ/L (21.0-32.0); CALCIUM 8.6 MG/DL (8.5-10.1); CREATININE 2.03 MG/DL (0.50-1.00)
[2016-12-31 08:00] VITALS: BP 126/57; PULSE 79; RESP 16; TEMP 97.6; O2SAT 93
[2016-12-31] MEDS: INSULIN ASPART SUPPLEMENTAL SCALE SQ SCH (08:00)
[2016-12-31] MEDS: INSULIN DETEMIR 100 UNITS/ML VIAL SQ SCH (09:00)
[2016-12-31] MEDS: METOCLOPRAMIDE HCL 10 MG TAB PO SCH (09:08)
[2016-12-31] MEDS: DOCUSATE SODIUM 50 MG/SENNA 8.6 MG TAB PO SCH (09:08)
[2016-12-31] MEDS: CARVEDILOL 3.125 MG TAB PO SCH (09:08)
[2016-12-31] MEDS: TAMSULOSIN HCL 0.4 MG CAP PO SCH (09:09)
[2016-12-31] MEDS: PANTOPRAZOLE SOD 40 MG DELAYED RELEASE TAB PO SCH (09:09)
[2016-12-31] MEDS: ASPIRIN EC 81 MG TABEC PO SCH (09:09)
[2016-12-31] MEDS: TICAGRELOR 90 MG TAB PO SCH (09:09)
[2016-12-31] MEDS: SODIUM CHLOR 0.9% 1000 ML INJ 1,000 ML IV SCH (09:10)
--- NOTE | 2016-12-31 09:52 | HHI.FF ---
Face to Face Verification Diagnosis: (1) LLQ abdominal pain (2) Acute kidney injury (3) HTN (hypertension) (4) Leukocytosis (5) Hyperlipidemia (6) Diabetes mellitus Physical Therapy Order: Evaluate and Treat, Improve ambulation, Strength and gait training Home Health Nursing Order: Signs/symptoms of disease process Nursing assessment with vital signs Instructions: Please draw labs for BMP and Mg+ on Sunday01/02/17, with results to go to her PCP, Dr. Cuba and her [employer] Pump Tender, Dr. Nj. I have seen patient Suzy Robertson on 12/31/16. My clinical findings support the need for the requested home health care services because: Deconditioned w/ increased weakness I certify that my clinical findings support that this patient is homebound because: Unsteady gait/balance Sera Oreilly Dec 31, 2016 09:52
--- NOTE | 2016-12-31 10:19 | HHI.PR ---
Subjective Remarks urinating well. pain much improved wants to go home Objective Vitals heart reg lung cta abd s/nt ext no pitting Vital Signs Date Time Temp Pulse Resp B/P (MAP) Pulse Ox O2 Delivery O2 Flow Rate FiO2 12/31/16 08:00 97.6 79 16 126/57 (80) 93 12/31/16 04:00 98.3 87 20 99/56 (70) 92 12/31/16 00:00 98.1 85 20 120/55 (76) 92 12/30/16 21:59 20 12/30/16 20:00 81 12/30/16 20:00 98.7 80 20 104/57 (73) 95 12/30/16 16:00 98.5 75 18 94/55 (68) 96 12/30/16 12:00 98.4 79 17 144/63 (90) 97 Result Diagram: 12/29/16 0512 12/31/16 0630 Imaging Last Impressions Renal Ultrasound 12/28/16 0000 Signed Impressions: Service Date/Time: December 07:35 - CONCLUSION: Elevated resistive indices bilaterally which can be seen with renal artery stenosis though the flow in the main renal arteries is normal. MR angiography is recommended for further evaluation if clinically indicated. Marquez Moser MD Chest X-Ray 12/27/16 1853 Signed Impressions: Service Date/Time: Tuesday, December 27, 2016 15:18 - CONCLUSION: Compensated cardiomegaly otherwise negative Board Certified Radiologist. This report was verified electronically. Abdomen/Pelvis CT 12/27/16 3460 Signed Impressions: Service Date/Time: Tuesday, December 27, 2016 15:20 - CONCLUSION: 1 mm stone left UVJ with minimal perinephric stranding. Remaining 1 mm stone in the left kidney. John Iverson MD FACR A/P Problem List: (1) LLQ abdominal pain ICD Codes: R10.32 - Left lower quadrant pain Status: Acute Plan: - Pt is 51 y/o WF with CAD, diabetes, and HTN who presented to the ED at [facility] [place] on 12/27/16 with complaints of LLQ abd pain, that started earlier today around 11:30 this morning. She reports that this pain is similar to pain she had 1 month ago. - Pt was admitted from December 01, 2016 to December 13, 2016 with LLQ/left flank pain. She had a renogram which was negative for obstruction on December 04. She was cleared by urology for discharge. However, just before discharge, she went into asystolic cardiac arrest and was intubated. Pt improved clinically and was discharged to rehab. The patient states that the abdominal pain has been gone since discharge until today - Noncontrasted CT Abd/pelvis in the ED noted 1mm stone left UVJ with minimal perinephritic stranding and remaining 1mm stone in the left kidney - Etiology for LLQ pain is unclear, possibly related to perinephritic stranding vs. musculoskeletal related to recent coughing vs. mild diverticulitis that is not yet noted on CT on noncontrasted study and the pt had recently been on antibiotics vs. other. - Appreciate Urology consult - Pt started on Flomax and recommended to strain her urine - Appreciate GI Consult - Pts last colonoscopy was in 1998 per the pt - Pt recommended to have endoscopic evaluation but will need to be off her Brilinta for 5 days.. will refer for outpt eval Her devin is probably related to iv toradol given by ED...stable. pt urinating w/ out difficulty. She has agreed to call her perfume and toilet water maker and pcp for f/u this week. Go to lab in 2 days for repeat bmp. f/u urology and GI. (2) Acute kidney injury ICD Codes: N17.9 - Acute kidney failure, unspecified Status: Acute Plan: - Pt was given Toradol in the ED, - Renal artery US (12/28) --> Elevated resistive indices bilaterally which can be seen with renal artery stenosis though the flow in the main renal arteries is normal. - MR angiography is recommended for further evaluation but due to pts worsening renal function this can't be performed at this time. - UA was WNL - IVF - Monitor labs see above (3) Leukocytosis ICD Codes: D72.829 - Elevated white blood cell count, unspecified Status: Acute Plan: - Improved (4) HTN (hypertension) ICD Codes: I10 - Essential (primary) hypertension Status: Chronic Plan: - Home meds continued (5) Cardiac arrest ICD Codes: I46.9 - Cardiac arrest, cause unspecified Status: Resolved Plan: - Pt previously went into asystolic cardiac arrest and was intubated during recent admission in 11/2016. - Patient states that it was never found out why she was having abdominal pain or why she went into cardiac arrest. - Pt was seen by Dr. Reeves yesterday as an outpt and is planned to have Holter Monitor evaluation - Pt is requesting that she be seen by her Mechanic Helper, Dr. Reeves during this admission, but Dr. Reeves does not come to this hospital. I spoke with Emmie, at [facility] office and she is the one who spoke with the pts sister on the way to the hospital yesterday and Emmie states that she told them that if the pts symptoms were cardiac related that her attending can consult cardiology. At this point there does not appear to be any cardiac issues currently. She has been on telemetry but there have not been any abnormalities noted on tele since admission. (6) Diabetes mellitus ICD Codes: E11.9 - Diabetes mellitus Status: Chronic Plan: - NovoLog SSI - Levemir 30 units BID - Accu checks (7) Hyperlipidemia ICD Codes: E78.5 - Hyperlipidemia, unspecified Status: Chronic Plan: - NovoLog SSI - Levemir 30units BID - Accuchecks Problem Qualifiers (1) Diabetes mellitus: Cristóbal House MD Dec 31, 2016 10:19
--- NOTE | 2016-12-31 10:19 | HHI.PR ---
Subjective Remarks urinating well. pain much improved wants to go home Objective Vitals heart reg lung cta abd s/nt ext no pitting Vital Signs Date Time Temp Pulse Resp B/P (MAP) Pulse Ox O2 Delivery O2 Flow Rate FiO2 12/31/16 08:00 97.6 79 16 126/57 (80) 93 12/31/16 04:00 98.3 87 20 99/56 (70) 92 12/31/16 00:00 98.1 85 20 120/55 (76) 92 12/30/16 21:59 20 12/30/16 20:00 81 12/30/16 20:00 98.7 80 20 104/57 (73) 95 12/30/16 16:00 98.5 75 18 94/55 (68) 96 12/30/16 12:00 98.4 79 17 144/63 (90) 97 Result Diagram: 12/29/16 0512 12/31/16 0630 Imaging Last Impressions Renal Ultrasound 12/28/16 0000 Signed Impressions: Service Date/Time: December 07:35 - CONCLUSION: Elevated resistive indices bilaterally which can be seen with renal artery stenosis though the flow in the main renal arteries is normal. MR angiography is recommended for further evaluation if clinically indicated. Marquez Moser MD Chest X-Ray 12/27/16 2327 Signed Impressions: Service Date/Time: Tuesday, December 27, 2016 15:18 - CONCLUSION: Compensated cardiomegaly otherwise negative Board Certified Radiologist. This report was verified electronically. Abdomen/Pelvis CT 12/27/16 4946 Signed Impressions: Service Date/Time: Tuesday, December 27, 2016 15:20 - CONCLUSION: 1 mm stone left UVJ with minimal perinephric stranding. Remaining 1 mm stone in the left kidney. John Iverson MD FACR A/P Problem List: (1) LLQ abdominal pain ICD Codes: R10.32 - Left lower quadrant pain Status: Acute Plan: - Pt is 51 y/o WF with CAD, diabetes, and HTN who presented to the ED at [facility] [place] on 12/27/16 with complaints of LLQ abd pain, that started earlier today around 11:30 this morning. She reports that this pain is similar to pain she had 1 month ago. - Pt was admitted from December 01, 2016 to December 13, 2016 with LLQ/left flank pain. She had a renogram which was negative for obstruction on December 04. She was cleared by urology for discharge. However, just before discharge, she went into asystolic cardiac arrest and was intubated. Pt improved clinically and was discharged to rehab. The patient states that the abdominal pain has been gone since discharge until today - Noncontrasted CT Abd/pelvis in the ED noted 1mm stone left UVJ with minimal perinephritic stranding and remaining 1mm stone in the left kidney - Etiology for LLQ pain is unclear, possibly related to perinephritic stranding vs. musculoskeletal related to recent coughing vs. mild diverticulitis that is not yet noted on CT on noncontrasted study and the pt had recently been on antibiotics vs. other. - Appreciate Urology consult - Pt started on Flomax and recommended to strain her urine - Appreciate GI Consult - Pts last colonoscopy was in 1998 per the pt - Pt recommended to have endoscopic evaluation but will need to be off her Brilinta for 5 days.. will refer for outpt eval Her devin is probably related to iv toradol given by ED...stable. pt urinating w/ out difficulty. She has agreed to call her pouncing lathe operator and pcp for f/u this week. Go to lab in 2 days for repeat bmp. f/u urology and GI. (2) Acute kidney injury ICD Codes: N17.9 - Acute kidney failure, unspecified Status: Acute Plan: - Pt was given Toradol in the ED, - Renal artery US (12/28) --> Elevated resistive indices bilaterally which can be seen with renal artery stenosis though the flow in the main renal arteries is normal. - MR angiography is recommended for further evaluation but due to pts worsening renal function this can't be performed at this time. - UA was WNL - IVF - Monitor labs see above (3) Leukocytosis ICD Codes: D72.829 - Elevated white blood cell count, unspecified Status: Acute Plan: - Improved (4) HTN (hypertension) ICD Codes: I10 - Essential (primary) hypertension Status: Chronic Plan: - Home meds continued (5) Cardiac arrest ICD Codes: I46.9 - Cardiac arrest, cause unspecified Status: Resolved Plan: - Pt previously went into asystolic cardiac arrest and was intubated during recent admission in 11/2016. - Patient states that it was never found out why she was having abdominal pain or why she went into cardiac arrest. - Pt was seen by Dr. Reeves yesterday as an outpt and is planned to have Holter Monitor evaluation - Pt is requesting that she be seen by her Machine Paint Mixer, Dr. Reeves during this admission, but Dr. Reeves does not come to this hospital. I spoke with Emmie, at [facility] office and she is the one who spoke with the pts sister on the way to the hospital yesterday and Emmie states that she told them that if the pts symptoms were cardiac related that her attending can consult cardiology. At this point there does not appear to be any cardiac issues currently. She has been on telemetry but there have not been any abnormalities noted on tele since admission. (6) Diabetes mellitus ICD Codes: E11.9 - Diabetes mellitus Status: Chronic Plan: - NovoLog SSI - Levemir 30 units BID - Accu checks (7) Hyperlipidemia ICD Codes: E78.5 - Hyperlipidemia, unspecified Status: Chronic Plan: - NovoLog SSI - Levemir 30units BID - Accuchecks Problem Qualifiers (1) Diabetes mellitus: Cristóbal House MD Dec 31, 2016 10:19
[2016-12-31] MEDS ORDERED: HYDR-3533 PO (10:22)
[2016-12-31] MEDS ORDERED: TAMS5CAP PO (10:22)
--- NOTE | 2016-12-31 10:24 | HHI.DCPOC ---
Discharge Care Plan Diagnosis: (1) Kidney stone on left side (2) Acute kidney injury (3) LLQ abdominal pain Goals to Promote Your Health * To prevent worsening of your condition and complications * To maintain your health at the optimal level Directions to Meet Your Goals Take your medications as prescribed Follow your dietary instruction Follow activity as directed Keep your appointments as scheduled Take your immunizations and boosters as scheduled If your symptoms worsen call your PCP, if no PCP go to Urgent Care Center or Emergency Room Smoking is Dangerous to Your Health. Avoid second hand smoke Call the 24-hour hour crisis hotline for domestic abuse at Cristóbal House MD Dec 31, 2016 10:24
--- NOTE | 2016-12-31 10:24 | HHI.DCPOC ---
Discharge Care Plan Diagnosis: (1) Kidney stone on left side (2) Acute kidney injury (3) LLQ abdominal pain Goals to Promote Your Health * To prevent worsening of your condition and complications * To maintain your health at the optimal level Directions to Meet Your Goals Take your medications as prescribed Follow your dietary instruction Follow activity as directed Keep your appointments as scheduled Take your immunizations and boosters as scheduled If your symptoms worsen call your PCP, if no PCP go to Urgent Care Center or Emergency Room Smoking is Dangerous to Your Health. Avoid second hand smoke Call the 24-hour hour crisis hotline for domestic abuse at Cristóbal House MD Dec 31, 2016 10:24
--- NOTE | 2016-12-31 10:24 | HHI.DCPOC ---
Discharge Care Plan Diagnosis: (1) Kidney stone on left side (2) Acute kidney injury (3) LLQ abdominal pain Goals to Promote Your Health * To prevent worsening of your condition and complications * To maintain your health at the optimal level Directions to Meet Your Goals Take your medications as prescribed Follow your dietary instruction Follow activity as directed Keep your appointments as scheduled Take your immunizations and boosters as scheduled If your symptoms worsen call your PCP, if no PCP go to Urgent Care Center or Emergency Room Smoking is Dangerous to Your Health. Avoid second hand smoke Call the 24-hour hour crisis hotline for domestic abuse at Cristóbal House MD Dec 31, 2016 10:24
--- NOTE | 2016-12-31 10:29 | HHI.DS ---
Discharge Summary Admission Date Dec 29, 2016 at 08:01 Discharge Date: Dec 31, 2016 Admitting Diagnosis intractable abdominal pain (1) Kidney stone on left side Diagnosis: Principal ICD Codes: N20.0 - Calculus of kidney (2) LLQ abdominal pain Diagnosis: Principal ICD Codes: R10.32 - Left lower quadrant pain Status: Acute (3) Acute kidney injury Diagnosis: Principal ICD Codes: N17.9 - Acute kidney failure, unspecified Status: Acute (4) HTN (hypertension) ICD Codes: I10 - Essential (primary) hypertension Status: Chronic (5) Cardiac arrest Diagnosis: Secondary ICD Codes: I46.9 - Cardiac arrest, cause unspecified Status: Resolved (6) Diabetes mellitus Diagnosis: Secondary ICD Codes: E11.9 - Diabetes mellitus Status: Chronic (7) Hyperlipidemia Diagnosis: Secondary ICD Codes: E78.5 - Hyperlipidemia, unspecified Status: Chronic Brief History Mrs. Robertson is a 51 y/o WF with CAD, diabetes, and HTN who [place] [facility] [place] with complaints of LLQ abd pain, that started earlier today around 11:30 this morning. She reports that this pain is similar to pain she had 1 month ago. Pt was admitted from December 01, 2016 to December 13, 2016 with LLQ/left flank pain. She had a renogram which was negative for obstruction on December 04. She was cleared by urology for discharge. However, just before discharge, she went into asystolic cardiac arrest and was intubated. Pt improved clinically and was discharged to rehab. The patient states that the abdominal pain has been gone since discharge. Pt saw her PCP last week and was given Doxycycline for her "chest congestion" and some redness on her right ankle where she sustained a cut from a catheter bag while in rehab per the pt. She has also been taking Mucinex BID. She has been having issues with a dry cough and "raspy voice" since her intubation and has been seeing a rails developer , Dr. Hager, two days ago. Pt was given Breo Elipta to start. She has an appt for sleep study next month. She denies any fevers or chills. She feels that the chest congestion is a bit better. She denies any chest pain. Patient reports nausea, but denies any vomiting. Patient states that it was never found out why she was having abdominal pain or why she went into cardiac arrest. The patient states that she was seen by her online media director, Dr. Reeves, yesterday and she states that she was recommended to have a Holter monitor placed. Pt reports that she had a normal BM this morning. Denies any constipation or diarrhea. No reported melena or BRBPR. Denies any dysuria, urinary frequency or hematuria. CBC/BMP: 12/29/16 0512 12/31/16 0630 Significant Findings Laboratory Tests Test 12/29/16 05:12 12/30/16 05:55 12/30/16 06:00 12/31/16 06:30 Red Blood Count 3.71 MIL/MM3 (4.00-5.30) Hemoglobin 11.0 GM/DL (11.6-15.3) Hematocrit 33.2 % (35.0-46.0) Blood Urea Nitrogen 32 MG/DL (7-18) 37 MG/DL (7-18) 38 MG/DL (7-18) Creatinine 2.24 MG/DL (0.50-1.00) 1.91 MG/DL (0.50-1.00) 2.03 MG/DL (0.50-1.00) Random Glucose 162 MG/DL (74-106) 195 MG/DL (74-106) 237 MG/DL (74-106) Estimat Glomerular Filtration Rate 23 ML/MIN (>89) 28 ML/MIN (>89) 26 ML/MIN (>89) Chloride Level 109 MEQ/L (98-107) 108 MEQ/L (98-107) Hospital Course (1) LLQ abdominal pain - Pt is 51 y/o WF with CAD, diabetes, and HTN who [place] [facility] [place] with complaints of LLQ abd pain, that started earlier today around 11:30 this morning. She reports that this pain is similar to pain she had 1 month ago. - Pt was admitted from December 01, 2016 to December 13, 2016 with LLQ/left flank pain. She had a renogram which was negative for obstruction on December 04. She was cleared by urology for discharge. However, just before discharge, she went into asystolic cardiac arrest and was intubated. Pt improved clinically and was discharged to rehab. The patient states that the abdominal pain has been gone since discharge until today - Noncontrasted CT Abd/pelvis in the ED noted 1mm stone left UVJ with minimal perinephritic stranding and remaining 1mm stone in the left kidney - Etiology for LLQ pain is unclear, possibly related to perinephritic stranding vs. musculoskeletal related to recent coughing vs. mild diverticulitis that is not yet noted on CT on noncontrasted study and the pt had recently been on antibiotics vs. other. - Appreciate Urology consult - Pt started on Flomax and recommended to strain her urine - Appreciate GI Consult - Pts last colonoscopy was in 1998 per the pt - Pt recommended to have endoscopic evaluation but will need to be off her Brilinta for 5 days.. will refer for outpt eval Her devin is probably related to iv toradol given by ED...stable. pt urinating w/ out difficulty. She has agreed to call her diesel technician mechanic and pcp for f/u this week. She will have HHC and recheck of bmp in next 48hrs f/u urology and GI. f/u pcp and her online media director who is ordering a holter monitor.- Pt Condition on Discharge: Stable Discharge Disposition: Disch w/ Home Health Serv Discharge Instructions DIET: Follow Instructions for: Diabetic Diet Activities you can perform: Regular-No Restrictions Follow up Referrals: Cardiology - 1 Week with Zen Reeves MD Gastroenterology - 2 Weeks with Ariane Velazquez MD PCP Follow-up - [address] walsh Urology - 1 Week with Mao Portillo MD New Medications: Tamsulosin (Flomax) 0.4 Mg Cap 0.4 MG PO DAILY for kidney stone, #30 CAP Changed Medications: Hydrocodone-Acetaminophen (Lortab) 5-325 Mg Tab 1 TAB PO Q4HR PRN for PAIN, #20 TAB 0 Refills (Changed from: Q3HR) Continued Medications: Aspirin DR (Aspirin EC) 81 Mg Tabdr 81 MG PO DAILY, TAB 0 Refills Atorvastatin (Atorvastatin) 80 Mg Tab 80 MG PO HS for Cholesterol Management, #30 TAB 0 Refills Carvedilol (Carvedilol) 3.125 Mg Tab 3.125 MG PO BID, #60 TAB 0 Refills Furosemide (Furosemide) 40 Mg Tab 40 MG PO DAILY PRN for SWELLING, #30 TAB 0 Refills Insulin Aspart Inj (Novolog Flexpen Inj) 300 Unit/3 Ml Pen 10 UNITS SQ TID for Blood Sugar Management, #1 PEN 0 Refills With sliding scale Insulin Detemir Inj (Levemir Flextouch Pen Inj) 300 unit/3 ML Pen 60 UNITS SQ HS for Blood Sugar Management, PEN 0 Refills Lansoprazole (Prevacid) 30 Mg Capdr 30 MG PO DAILY, CAP 0 Refills Lorazepam (Lorazepam) 0.5 Mg Tab 0.5 MG PO DAILY PRN for ANXIETY, #10 TAB 0 Refills Metoclopramide (Metoclopramide) 5 Mg Tab 5 MG PO DAILY, TAB 0 Refills Sennosides-Docusate Sodium (Senna Plus 8.6-50 mg) 8.6 Mg-50 Mg Tab 1 TAB PO BID for Constipation, #60 TAB Ticagrelor (Brilinta) 90 Mg Tab 90 MG PO BID for Blood Clot Prevention, #60 TAB 0 Refills Discontinued Medications: Doxycycline Hyclate (Doxycycline Hyclate) 100 Mg Cap 100 MG PO Q12HR for Infection for 10 Days, #28 CAP 0 Refills Cristóbal House MD Dec 31, 2016 10:29
[2016-12-31 10:59] VITALS: PULSE 79
== END 2016-12-31 13:45 | disposition home health service (06) | DRG 392 ==
LOC: NEPE 13:57 → NEDA 17:09 → NEPGCP 18:33 → OBSVTOIN 12-29 08:01 → N06B 12-29 11:59
PROVIDERS: ADMIT Hospitalist; ATTEND Hospitalist
DX: R10.32 Left lower quadrant pain (principal); N17.9 Acute kidney failure, unspecified; K31.84 Gastroparesis; Z68.41 Body mass index [BMI] 40.0-44.9, adult; E11.41 Type 2 diabetes mellitus with diabetic mononeuropathy; E66.01 Morbid (severe) obesity due to excess calories; K22.2 Esophageal obstruction; N20.2 Calculus of kidney with calculus of ureter; I25.10 Atherosclerotic heart disease of native coronary artery without angina pectoris; G43.909 Migraine, unspecified, not intractable, without status migrainosus; E11.43 Type 2 diabetes mellitus with diabetic autonomic (poly)neuropathy; E78.5 Hyperlipidemia, unspecified; F41.9 Anxiety disorder, unspecified; F32.9 Major depressive disorder, single episode, unspecified; M19.90 Unspecified osteoarthritis, unspecified site; Z79.4 Long term (current) use of insulin; Z95.5 Presence of coronary angioplasty implant and graft; Z89.512 Acquired absence of left leg below knee
CPT/HCPCS: 71010; 74176; 76937; 80048; 80053; 81001; 82948; 83690; 83735; 85025; 85610; 85730; 87205; 93005; 93975; 94664; 96361; 96372; 96374; 96375; 96376; G0378; J1815; J1885; J2270; J2405; J7030